=== PATIENT | male | born 1935 | race Caucasian/White ===

== ENCOUNTER 2016-11-04 09:50 | Outpatient (CLI) | payer BC, MEDICARE, OTHER ==
[~2016-11-04 09:50] MED LIST: SODIUM CHLORIDE 0.9% 250 ML in EMPTY BAG 1 BAG IV PRN; SODIUM CHLORIDE 0.9% 500 ML in EMPTY BAG 1 BAG IV PRN
[2016-11-04 10:18] VITALS: RESP 16; TEMP 97.5
[2016-11-04 10:38] LABS: Basophils # (A) 0.1 k/uL (0-0.2); Basophils % (A) 1 %; CH 29.5; CHCM 34.2; Eosinophils # (A) 0.2 k/uL (0-0.7); Eosinophils % (A) 3 %; HCT 41.9 % (39.0-53.0); HDW 2.48; HGB 13.7 gm/dL (13.0-17.5); Luc # (Auto) 0.08; Luc % (Auto) 1; Lymphocytes % (A) 36 %; MCH 28.3 pg (25.0-35.0); MCHC 32.7 g/dL (31.0-37.0); MCV 86.7 fL (80.0-100.0); Mean Platelet Volume 7.6; Monocytes # (A) 0.5 k/uL (0-1.0); Monocytes % (A) 8 %; Neutrophils # (A) 2.8 k/uL (1.3-7.7); Neutrophils % (A) 50 %; RBC 4.83 m/uL (4.30-5.90); RDW 12.5 % (11.5-15.5); WBC 5.6 k/uL (3.8-10.6); WBC (Perox) 5.82
[2016-11-04 10:48] LABS: ALT 37 U/L (21-72); AST 23 U/L (17-59); Alkaline Phosphatase 65 U/L (38-126); Anion Gap 10 mmol/L; Bilirubin, Delta 0.3 mg/dL (0.0-0.2); Blood Urea Nitrogen 29 mg/dL (9-20); Calcium 9.4 mg/dL (8.4-10.2); Carbon Dioxide 25 mmol/L (22-30); Chloride 101 mmol/L (98-107); Glucose 107 mg/dL (74-99); Non-African American GFR(MDRD) >60 (>60 ml/min/1.73 sqM); Potassium 5.2 mmol/L (3.5-5.1); Sodium 136 mmol/L (137-145); Total Bilirubin 1.2 mg/dL (0.2-1.3); Total Protein 7.1 g/dL (6.3-8.2)
[2016-11-04 11:37] VITALS: BP 143/63; PULSE 47
[2016-11-04 12:54] LABS: Appearance,Urine Clear (Clear); Bilirubin,Urine Negative (Negative); Glucose,Urine (UA) Negative (Negative); Ketones,Urine Negative (Negative); Leukocyte Esterase,Urine Negative (Negative); Nitrite,Urine Negative (Negative); PH, Urine 5.5 (5.0-8.0); Protein,Urine Negative (Negative); Specific Gravity,Urine 1.012 (1.001-1.035); UA Billing (MACRO vs. MICRO) CHEM; Urobilinogen,Urine <2.0 mg/dL (<2.0)
[2016-11-04 13:23] LABS: Erythrocyte Sedimentation Rate 6 mm/hr (0-15)
[2016-11-04] MEDS ORDERED: diphenhydrAMINE 25 MG CAP PO ONE (23:00)
[2016-11-04] MEDS ORDERED: ACETAMINOPHEN TAB 325 MG TAB PO ONE (23:00)
[2016-11-04] MEDS ORDERED: diphenhydrAMINE 50 MG/ML 1 ML VIAL IVP ONE (23:00)
== END 2016-11-04 14:54 | disposition home or self-care (01) ==
LOC: PROCWHC3 09:50
PROVIDERS: ATTEND Internal Medicine Rheumatology
DX: M06.89 Other specified rheumatoid arthritis, multiple sites (principal)
CPT/HCPCS: 80053; 85652; 82248; 85025; 81003; 96361; 96413; 96415; 36415; J1745

== ENCOUNTER 2017-10-16 13:03 | Emergency (ER) | payer MEDICARE ==
[2017-10-16 13:18] VITALS: BP 132/63; PULSE 95; RESP 18; TEMP 97.7
[2017-10-16] MEDS ORDERED: DIPH,PERTUS(ACELL)TETVAC-LF 0.5 ML VIAL IM ONE (13:31)
--- NOTE | 2017-10-16 13:47 | ED ---
Wound/Laceration HPI - General Chief Complaint: Wound/Laceration Stated Complaint: Fall/Leg Lac Time Seen by Provider: 10/16/17 13:24 Source: patient, RN notes reviewed Mode of arrival: ambulatory Limitations: no limitations - History of Present Illness Initial Comments: This is an 82-year-old male who presents to the emergency department with chief complaint of right leg laceration. Patient states that at 11 AM this morning he drove his lawnmower out to the end of the driveway to take out his garbage. While walking to get back onto the lawnmower to return to the house patient slipped on a patch of ice and his leg went underneath the lawnmower. He states that he lacerated his right lower extremity on a metal bracket underneath the lawnmower. Patient was able to get the bleeding under control. He states he has normal range of motion. Son is at bedside and states that he examined the wound and knew that the patient needed stitches. Patient is unsure of the last time he received an up-to-date tetanus vaccination. Denies being on any blood thinners. Denies any other injuries. Denies fever, chills, chest pain, shortness of breath, abdominal pain, nausea or vomiting, constipation or diarrhea, dysuria or hematuria, numbness or tingling, headache or vision changes. - Related Data Home Medications Medication Instructions Recorded Confirmed Aspirin 81 mg PO DAILY 02/26/14 11/04/16 Folic Acid 1 mg PO DAILY 02/26/14 11/04/16 Lisinopril [Zestril] 5 mg PO DAILY 02/26/14 11/04/16 Simvastatin [Zocor] 20 mg PO HS 02/26/14 11/04/16 Tamsulosin [Flomax] 8 mg PO DAILY 02/26/14 11/04/16 inFLIXimab [Remicade] 400 mg IVPB DIRECTED 11/07/14 11/04/16 Doxazosin [Cardura] 4 mg PO BID 03/25/16 11/04/16 Allergies Allergy/AdvReac Type Severity Reaction Status Date / Time No Known Allergies Allergy Verified 10/16/17 13:18 Review of Systems ROS Statement: Those systems with pertinent positive or pertinent negative responses have been documented in the HPI. ROS Other: All systems not noted in ROS Statement are negative. Past Medical History Past Medical History: Cancer, Hearing Disorder / Deafness, Hyperlipidemia, Myocardial Infarction (NH), Rheumatoid Arthritis (RA), Sleep Apnea/CPAP/BIPAP Additional Past Medical History / Comment(s): BACK PAIN/IMPLANTS/SKIN CANCER Last Myocardial Infarction Date:: 1999 History of Any Multi-Drug Resistant Organisms: None Reported Past Surgical History: Heart Catheterization With Stent Additional Past Surgical History / Comment(s): R&L KNEE SURG/LT. EAR BIOPSY 2010 /REMOVAL LT. EAR CHOLESTEATOMA Past Anesthesia/Blood Transfusion Reactions: No Reported Reaction Date of Last Stent Placement:: 1999 Past Psychological History: No Psychological Hx Reported Smoking Status: Former smoker Past Alcohol Use History: None Reported Past Drug Use History: None Reported General Exam - General Exam Comments Initial Comments: General: Awake and alert, well-developed; in no apparent distress. Pleasant and cooperative. HEENT: Head atraumatic, normocephalic. Pupils are equal, round and reactive to light. Extraocular movements intact. Oropharynx moist without erythema or exudate. Neck: Supple. Normal ROM. Cardiovascular: Regular rate and rhythm. No murmurs, rubs or gallops. Chest symmetrical. Respiratory: Lungs clear to auscultation bilaterally. No wheezes, rales or rhonchi. Normal respiratory effort with no use of accessory muscles. Musculoskeletal: Normal ROM of right lower extremity. There is an approximately 2 cm linear laceration overlying distal payton of right lower extremity. Bleeding is controlled. Sensation is intact. Pedal pulses are 2+ equal and palpable bilaterally. Skin: [place], warm and dry without rashes. Laceration as documented above. Neurological: Alert and oriented x3. CN II-XII grossly intact. Speech is fluent and answers are appropriate. No focal neuro deficits. Psychiatric: Normal mood and affect. No overt signs of depression or anxiety noted. Limitations: no limitations Course Vital Signs 10/16/17 13:15 Temperature 97.7 F Pulse Rate 95 Respiratory 18 Rate Blood Pressure 132/63 O2 Sat by Pulse 96 Oximetry Procedures - Laceration Laceration #1 Consent Obtained: verbal consent Indication: laceration Site: lower extremity (right distal payton) Size (cm): 2 Description: linear Depth: simple, single layer Anesthetic Used: lidocaine 1% Anesthesia Technique: local infiltration Amount (mls): 2 Pre-repair: wound explored, irrigated extensively, deep structures intact Type of Sutures: nylon Size of Sutures: 4-0 Number of Sutures: 3 Technique: simple, interrupted Patient Tolerated Procedure: well, no complications Medical Decision Making - Medical Decision Making This is an 82-year-old male who presented to the emergency department for evaluation of right lower extremity laceration. Patient was made up-to-date with tetanus vaccination. X-ray revealed no evidence of suspicious radiopaque foreign body and there was no involvement of the bone. 3 sutures were placed and patient tolerated well without complication. A dressing was applied to the wound. Patient was recommended to have sutures removed in 10-14 days either here at the emergency department or with his primary care provider. Patient will be discharged home. He is in agreement with plan and voices understanding. All questions were answered. - Radiology Data Radiology results: report reviewed X-ray right tibia-fibula findings: There is no acute fracture-dislocation seen in the right tibia or fibula. The right knee and ankle joints appear within normal limits. Horizontal lucency consistent with laceration injuries seen anteriorly midline level on lateral view.No suspicious radiodense foreign body is present. Impression: There is no acute fracture or dislocation seen in the right tibia or fibula. Disposition Clinical Impression: Laceration Disposition: HOME SELF-CARE Condition: Good Instructions: Laceration (ED) Additional Instructions: Please have sutures removed in 10-14 days. Please follow up with primary care provider within 1-2 days. Return to emergency department if symptoms should worsen or any concerns arise. Referrals: Kareem Mae DO [Primary Care Provider] - 1-2 days Time of Disposition: 14:23
--- NOTE | 2017-10-16 13:47 | XR ---
EXAMINATION TYPE: XR tibia fibula RT DATE OF EXAM: 10/16/2017 CLINICAL HISTORY: Laceration injury with pain TECHNIQUE: Two views of the right leg are obtained. COMPARISON: None. FINDINGS: There is no acute fracture or dislocation seen in the right tibia or fibula. The right kn ee and ankle joints appear within normal limits. Horizontal lucency consistent with laceration injury is seen anteriorly midline level on lateral view. No suspicious radiodense foreign body is present. IMPRESSION: There is no acute fracture or dislocation seen in the right tibia or fibula.
== END 2017-10-16 14:30 | disposition home or self-care (01) ==
LOC: EC 13:03
DX: S81.811A Laceration without foreign body, right lower leg, initial encounter (principal); E78.5 Hyperlipidemia, unspecified; I25.2 Old myocardial infarction; M06.9 Rheumatoid arthritis, unspecified; G47.30 Sleep apnea, unspecified; Z99.89 Dependence on other enabling machines and devices; Z85.828 Personal history of other malignant neoplasm of skin; Z95.5 Presence of coronary angioplasty implant and graft; Z87.891 Personal history of nicotine dependence; Z79.82 Long term (current) use of aspirin; Z79.899 Other long term (current) drug therapy; Z23 Encounter for immunization; W28.XXXA Contact with powered lawn mower, initial encounter; Y92.89 Other specified places as the place of occurrence of the external cause; Y93.89 Activity, other specified
CPT/HCPCS: 12001; 90471; 90715; 99283

== ENCOUNTER → 2018-01-11 | Outpatient (CLI) | payer MEDICARE, OTHER ==
--- NOTE | 2018-01-11 11:09 | US ---
EXAMINATION TYPE: US scrotum with doppler. Grayscale and color Doppler Duplex imaging performed of t he scrotum. DATE OF EXAM: 01/11/2018 COMPARISON: NONE CLINICAL HISTORY: Testicular torsion. Left testicular pain and swelling x 4 days EXAM MEASUREMENTS: TESTICLES: Right Testicle: 4.7 x 3.3 x 2.8 cm Left Testicle: 4.4 x 3.7 x 3.4 cm EPIDIDYMIS HEAD: Right Epididymis: 0.7 x 1.4 x 1.2 cm Left Epididymis: 1.1 x 1.2 x 2.1 cm Doppler performed to assess for testicular vascularity; good bilateral color flow and waveforms are s een. There is no evidence of testicular torsion. Presence of hydroceles: yes: right 3.7cm, left 6.6cm with septations Presence of varicoceles: no Left epididymis: 0.9 x 1.0 x 0.8cm cyst IMPRESSION: 1. No evidence for torsion. 2. Right-sided hydrocele with septations. 3. Left epididymal cyst.
== END | disposition home or self-care (01) ==
LOC: RADUSWWP 10:16
PROVIDERS: ATTEND Family Medicine
DX: N43.3 Hydrocele, unspecified (principal); N50.3 Cyst of epididymis
CPT/HCPCS: 76870; 93975

== ENCOUNTER → 2022-06-29 | Outpatient (CLI) | payer MEDICARE ==
--- NOTE | 2022-07-05 13:00 | US ---
EXAMINATION TYPE: US arterial LE single level DATE OF EXAM: 06/29/2022 12:48 PM CLINICAL HISTORY: M79.662 PAIN LT LEG, M79.661 PAIN RT LEG,I73.9 PERIPHERAL. History of hypertension and hyperlipidemia. Cardiac Stent 1999 Bilateral claudication after 50 yards. Doppler Waveforms: Right: Monophasic Left: Monophasic Pulse Volume Recording: Pressure Gradients: Ankle-Brachial Indices: Right: 0.62 Left: 0.64 Toe Brachial Indices: Right: 0.38 Left: 0.32 IMPRESSION: Loss of phasicity with diminished LELE and TBI values. At least moderate peripheral arter ial disease is present bilaterally. Further workup and follow-up advised.
== END | disposition home or self-care (01) ==
LOC: RADUSWWP 12:01
PROVIDERS: ATTEND Family Medicine
DX: I73.9 Peripheral vascular disease, unspecified (principal); M79.661 Pain in right lower leg; I10 Essential (primary) hypertension
CPT/HCPCS: 93922; 93923

== ENCOUNTER 2022-08-23 10:15 | Day surgery (SDC) | payer MEDICARE ==
[2022-08-19 09:57] VITALS: BMI 28.1
[~2022-08-23 10:15] MED LIST changes: +ALPRAZolam 0.25 MG TAB PO PRN; +ASPIRIN 325 MG TAB PO PRN; +SODIUM CHLORIDE 0.9% 1,000 ML in EMPTY BAG 1 BAG IV ONE; -SODIUM CHLORIDE 0.9% 250 ML in EMPTY BAG 1 BAG IV PRN; -SODIUM CHLORIDE 0.9% 500 ML in EMPTY BAG 1 BAG IV PRN
[2022-08-23 10:44] VITALS: RESP 18; TEMP 98.4
[2022-08-23 10:56] LABS: Basophils # (A) 0.1 k/uL (0-0.2); Basophils % (A) 1 %; Eosinophils # (A) 0.3 k/uL (0-0.7); Eosinophils % (A) 3 %; HCT 41.2 % (39.0-53.0); Lymphocytes # (A) 3.3 k/uL (1.0-4.8); Lymphocytes % (A) 32 %; MCH 29.7 pg (25.0-35.0); MCHC 33.9 g/dL (31.0-37.0); MCV 87.5 fL (80.0-100.0); Mean Platelet Volume 7.7; Monocytes # (A) 0.8 k/uL (0-1.0); Monocytes % (A) 8 %; Neutrophils # (A) 5.6 k/uL (1.3-7.7); Neutrophils % (A) 54 %; Platelet Count 313 k/uL (150-450); RBC 4.71 m/uL (4.30-5.90); RDW 13.1 % (11.5-15.5); WBC 10.4 k/uL (3.8-10.6)
[2022-08-23 11:13] LABS: Calcium 9.4 mg/dL (8.4-10.2); Potassium 4.3 mmol/L (3.5-5.1)
[2022-08-23] MEDS ORDERED: fentaNYL (PF) 50 MCG/1 ML VIAL IV ONE (12:10)
[2022-08-23] MEDS ORDERED: HEPARIN SODIUM 1,000 UN/ML (10ML VL) ONE (12:10)
[2022-08-23] MEDS ORDERED: MIDAZOLAM 2 MG/2 ML VIAL IV ONE (12:10)
[2022-08-23] MEDS ORDERED: LIDOCAINE 1% INJ 10MG/ML (30 ML VIAL-PF) SQ ONE (12:12)
[2022-08-23] MEDS ORDERED: VERAPAMIL 2.5 MG/ML 2 ML AMP ONE ×2 (12:13→12:25)
[2022-08-23] MEDS ORDERED: VERAPAMIL SYRINGE (5 MG/10 ML) INTRAARTER ONE (12:14)
[2022-08-23] MEDS ORDERED: HEPARIN SODIUM 1,000 UN/ML (10ML VL) IV ONE (12:23)
[2022-08-23] MEDS ORDERED: IOPAMIDOL-250 100ML BTL INTRAARTER ONE ×2 (12:56→12:57)
[2022-08-23] MEDS ORDERED: SODIUM CHLORIDE 0.9% 500 ML 500 ML IV ONE (15:00)
[2022-08-23 17:23] VITALS: BP 160/69; PULSE 52
--- NOTE | 2022-08-24 08:53 | P.PCN ---
Date of Procedure: 08/23/22 Description of Procedure: PROCEDURES PERFORMED: Abdominal angiography with bilateral runoff INDICATION: [place] class 3 claudication left greater than right, abnormal ultrasound, new symptoms on the left over the last 6 weeks CONSENT:I have discussed the risks, benefits and alternative therapies for the above-mentioned procedure and for both sedation/analgesia as well as necessary blood product administration, if indicated, as they pertain to this patient. The patient has indicated understanding and acceptance of the risks and procedures discussed. PROCEDURE: After the risks, benefits and alternatives of the above mentioned procedure explained in detail with the patient, informed consent was obtained. Patient was taken to the catheterization lab and prepped and draped in usual fashion. 1% lidocaine was used to anesthetize the right radial area. A 6- Azerbaij[place] sheath was placed in the right radial artery using modified Seldinger technique. A 5-[place]zerbaijani pigtail catheter was inserted to the abdominal aorta and DSA imaging was obtained. Patient tolerated the diagnostic portion well. Ther e did appear to be sluggish flow in the left TP trunk and symptoms new over last 6 weeks and therefore recommended temporary anticoagulation. The patient tolerated the procedure well. TR band was placed and sheath removed. Patient was transported back to the post catheterization holding area in stable condition. Conscious Sedation: Patient was monitored under the direct supervision of vision of myself for conscious sedation using Versed and fentanyl for a total duration of 16 minutes HEMODYNAMICS: Ao: 138/63 Abdominal aorta: The abdominal aorta has mild calcifcation. Renal arteries are patent. There is no significant dissection or aneurysm. There is no significant stenosis. Right lower extremity: Right common iliac artery: There is no significant stenosis. Right external iliac artery: There is no significant stenosis. Right internal iliac artery: There is no significant stenosis. Right common femoral artery: There is 100% right common femoral artery stenosis. Right profunda: There is no significant stenosis. Right SFA: There is no significant stenosis. Right popliteal artery: There is no significant stenosis. Right tibioperoneal trunk: There is no significant stenosis. Right anterior tibial artery: There is no significant stenosis. Right porterior tibial artery: There is no significant stenosis. Right peroneal artery: There is no significant stenosis. Left lower extremity: Left common iliac artery: There is no stenosis. Left external iliac artery: There is no stenosis Left internal iliac artery: There is no significant stenosis. Left common femoral artery: There is 100% stenosis. Left profunda: There is no significant stenosis. Left SFA: There is no significant stenosis. Left popliteal artery: There is no significant stenosis. Left tibioperoneal trunk: There is no stenosis with what appears to be 2 vessel runoff. Flow appears sluggish which can be seen in more acute process, thrombus. FINAL IMPRESSION: 1. Peripheral arterial disease as described above including 100% right and left common femoral stenosis PLAN: 1. Aggressive risk factor modification per most recent ACC/AHA guidelines. 2. Evaluate for possible femoral endarterectomy however if high risk, may consider percutaneous atherectomy or medical therapy.
--- NOTE | 2022-08-24 10:19 | IR ---
EXAMINATION TYPE: IR angio abdominal w runoff DATE OF EXAM: 08/23/2022 CLINICAL HISTORY: Peripheral arterial disease. TECHNIQUE: Fluoroscopy. COMPARISON: None. FINDINGS: Fluoroscopic guidance was provided during abdominal angiogram with runoff procedure perfor med by Dr. Wu. A total of 8.2 metastases of fluoroscopic time was utilized during the procedur e and 236 spot images was acquired. Please refer to procedure note for further details. IMPRESSION: As Above.
== END 2022-08-23 17:34 | disposition home or self-care (01) ==
LOC: CATHCVL 10:15
PROVIDERS: ATTEND Internal Medicine
DX: I70.213 Atherosclerosis of native arteries of extremities with intermittent claudication, bilateral legs (principal); I10 Essential (primary) hypertension; I25.10 Atherosclerotic heart disease of native coronary artery without angina pectoris; E78.5 Hyperlipidemia, unspecified
CPT/HCPCS: 36200; 75625; 75716; 76937; 80048; 85025; C1769 ×2; C1894; C1887; J2250; J2001; J1644; Q9966; J3010

== ENCOUNTER → 2023-03-22 | Outpatient (CLI) | payer MEDICARE ==
--- NOTE | 2023-03-22 18:45 | XR ---
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 There is mild hyperinflation with mild interstitial prominence. Focal opacity at the periphery of the right upper lobe. Eventration medial right hemidiaphragm. IMPRESSION: COPD and borderline heart size. There is focal opacity at the periphery of the right upper lobe. Conv entional pneumonia, underlying neoplasm, and atypical mycobacterial infections are all in the differe ntial. Further clinical correlation recommended. Contrast-enhanced CT if further imaging assessment i s desired.
== END | disposition home or self-care (01) ==
LOC: RADXRYALE 13:34
PROVIDERS: ATTEND Physician Assistant Medical
DX: J44.9 Chronic obstructive pulmonary disease, unspecified (principal); R76.11 Nonspecific reaction to tuberculin skin test without active tuberculosis; R91.8 Other nonspecific abnormal finding of lung field
CPT/HCPCS: 71046

== ENCOUNTER → 2023-04-12 | Outpatient (CLI) | payer MEDICARE ==
[2023-04-12 09:02] LABS: African American GFR (CKD) 64 (>60 ml/min/1.73 sqM); Blood Urea Nitrogen 32 mg/dL (9-20); Non-African American GFR(CKD) 55 (>60 ml/min/1.73 sqM)
--- NOTE | 2023-04-12 12:21 | CT ---
EXAMINATION TYPE: CT chest w con DATE OF EXAM: 04/12/2023 COMPARISON: Radiographs 03/22/2023 HISTORY: 87-year-old male R91.1 Solitary pulmonary nodule. TECHNIQUE: scanning of the chest after the administration of 80ml mL of Isovue 300. Coronal/sagittal reconstructions performed. CT DLP: 377mGycm. Automatic exposure control utilized for a dose reduction. FINDINGS: Heart upper limits of normal in size without pericardial effusion. There is some subendocardial fat d eposition noted at the apex of the heart. Extensive three-vessel coronary artery calcifications. Ectatic ascending aorta 3.9 cm the apparent ectatic upper descending thoracic aorta 3.6 cm. Mild fusi form aneurysm mid descending thoracic aorta at 3.5 cm and distal descending thoracic aorta to 3.8 cm. Moderate prostatic calcifications distally extending into the upper abdominal aorta. The No thoracic lymphadenopathy by CT size criteria. Some calcified right paratracheal nodes, right hilar , and subcarinal nodes compatible with prior granulomatous disease. Large caliber to the main right and left pulmonary arteries up to 3.2 cm suggesting underlying pulmon sheri artery hypertension. Moderate mucosal thickening and scattered mild centrilobular emphysema. There is persistence of a masslike area of consolidation lateral right upper lobe measuring 5.3 x 2.6 cm. 7 mm lingular nodule. Possible 1.2 cm left basilar nodule. Hazy areas of generalized atelectasis susp ected. No pleural effusion. Visualized upper abdomen shows some mild scattered colonic diverticulosis. Bones: No osseous destructive process. IMPRESSION: 1. COPD with mild emphysema. Pulmonary arterial hypertension. 2. Focal 5.3 cm area of air space disease lateral right upper lobe. Given persistence from 03/22/2023, causes of chronic airspace disease including low-grade adenocarcinoma and lymphoma are included in t he differential. Consider pulmonary medicine referral for further evaluation. 3. A couple additional pulmonary nodules measuring up to 1.2 cm are nonspecific. Ongoing surveillance follow-up recommended. 4. 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
== END | disposition home or self-care (01) ==
LOC: RADCTMAIN 08:10
PROVIDERS: ATTEND Internal Medicine Rheumatology
DX: R91.1 Solitary pulmonary nodule (principal); J43.2 Centrilobular emphysema; I27.21 Secondary pulmonary arterial hypertension; R91.8 Other nonspecific abnormal finding of lung field; I25.10 Atherosclerotic heart disease of native coronary artery without angina pectoris
CPT/HCPCS: 82565; 84520; 71260; 36415; Q9967

== ENCOUNTER → 2023-05-20 | Outpatient (CLI) | payer MEDICARE ==
--- NOTE | 2023-05-22 23:09 | PE ---
EXAMINATION TYPE: PET CT fusion skull to thigh DATE OF EXAM: 05/20/2023 COMPARISON: CT chest 04/12/2023 Prior PET/CT: No prior at this location HISTORY: Solitary pulmonary nodule TECHNIQUE: Following the intravenous administration of 11.93 mCi of F-18 FDG, whole body images are performed from the skull base to the midthigh. Images are reviewed on the computer in the coronal, a xial, and sagittal planes. Reconstructed rotating images are created on independent workstation and reviewed on the computer. A localization and attenuation correction CT is performed in conjunction with the PET scan. DLP: 454.22 mGycm SCAN: Initial Blood glucose: 117 mg/dL Average Mediastinum SUV: 1.25 Average Liver SUV: 2.34 FINDINGS: NECK: No abnormal uptake THORAX: There is intense uptake within the right posterior lateral upper lobe mass with an SUV value of 4.42, example image 83. There is a focus of radiotracer accumulation within the superior hilum with an SUV value of 2.74 susp icious for metastatic disease. An additional slightly more inferior area of uptake is in the right hi lar region with an SUV value of 2.07. An additional metastatic lymph node may be present at this loca tion. There is some mild intermediate uptake within a left lower hilar region, image 101 with an SUV value of 1.01. ABDOMEN: No abnormal uptake PELVIS: No abnormal uptake OSSEOUS STRUCTURES: No abnormal uptake LOCALIZATION CT: Lymphadenopathy to correlate with the uptake in the hilar regions is not clearly lisset dent on the localization CT. COMPARISON: Findings appears similar to the recent CT exam IMPRESSION: 1. Increased uptake within the right upper lobe mass compatible with neoplasm. 2. Suggestion of 2 metastatic lymph nodes within the right suprahilar region. 3. Some mild intermediate signal within the left hilar region more likely is related to inflammatory change
== END | disposition home or self-care (01) ==
LOC: RADPETMAIN 09:02
PROVIDERS: ATTEND Internal Medicine Critical Care Medicine
DX: R91.8 Other nonspecific abnormal finding of lung field (principal)
CPT/HCPCS: 78815; A9552

== ENCOUNTER → 2023-06-08 | Day surgery (SDC) | payer MEDICARE ==
[~2023-06-08] MED LIST changes: -ALPRAZolam 0.25 MG TAB PO PRN; -ASPIRIN 325 MG TAB PO PRN; +GLYCOPYRROLATE 0.2 MG/ML 2 ML VIAL ONE; +LACTATED RINGERS 1,000 ML IV SCH; +MIDAZOLAM 2 MG/2 ML VIAL ONE; +NEOSTIGMINE 1 MG/ML 10 ML VIAL ONE; +PROPOFOL 10 MG/ML 20 ML VIAL IV ONE; +ROCURONIUM 10 MG/ML (5 ML VIAL) IV ONE; -SODIUM CHLORIDE 0.9% 1,000 ML in EMPTY BAG 1 BAG IV ONE; +SUCCINYLCHOLINE CHLORIDE 200 MG/10 ML VIAL IV ONE; +ePHEDrine 50 MG/ML 1 ML VIAL ONE; +fentaNYL (PF) 50 MCG/ML 2 ML AMP ONE
--- NOTE | 2023-06-08 13:30 | CT ---
EXAMINATION TYPE: CT chest wo con CT DLP: 375.6 mGycm, Automated exposure control for dose reduction was used. DATE OF EXAM: 06/08/2023 1:17 PM COMPARISON: CT chest 04/12/2023, PET/CT 05/20/2023. CLINICAL INDICATION:Male, 87 years old with history of lung mass; PHH, Pre Ion bronch navigation TECHNIQUE: Multiple axial images were obtained through the chest without IV contrast. Lack of IV or o ral contrast limits evaluation of solid and hollow organ viscera. . Coronal and sagittal reformats re viewed. Veran recall. FINDINGS: LUNGS/ PLEURA: No pleural effusion, pneumothorax, focal consolidation. Stable 7 mm lingular nodule. R edemonstration of a masslike consolidation within the lateral right upper lobe measuring 5.7 x 3.3 cm , (series 3, image 71). Relatively similar size from prior exam. No new definitive pulmonary nodules. Mild COPD changes. Possible stable 1.2 cm lingular nodule (series 3, image 213). AIRWAY: Patent and unremarkable.. HEART: Size within normal limits. No pericardial effusion. Similar subendocardial fat deposition note d at the apex of the heart. Likely from prior prior [place]. Extensive three-vessel coronary tear calcific ations. MEDIASTINUM: No gross evidence of adenopathy. VASCULATURE: Ectasia of the before meals sending thoracic aorta measuring up to 3.9 cm. Ectasia of t he upper descending thoracic aorta measuring up to 3.6 cm's. 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 Descending distal thoracic aorta measures up to 3. 8 cm. Atherosclerotic calcification of the aorta and its branches. MUSCULOSKELETAL: No acute osseous abnormalities SOFT TISSUES/LYMPH NODES: Unremarkable. LOWER NECK: No significant findings. UPPER ABDOMEN: No significant findings. IMPRESSION: 1. Redemonstration of masslike consolidation within the lateral right upper lobe measuring up to 5.6 cm. This could represent chronic airspace disease versus primary lung malignancy. 2. Couple stable pulmonary nodules. Continued follow-up is recommended. 3. Ectasia of the thoracic aorta redemonstrated.
[2023-06-08 13:41] VITALS: RESP 16
[2023-06-08] MEDS: LACTATED RINGERS 1,000 ML IV SCH ×2 (14:01→14:17)
--- NOTE | 2023-06-08 15:29 | P.PCN ---
Date of Procedure: 06/08/23 Operative Findings: Operative Findings: Preoperative Diagnosis: Right upper lobe mass Postoperative Diagnosis: Right upper lobe mass Procedure(s) Performed: Flexible bronchoscopy Robotic-assisted bronchoscopy and addition to radial ultrasound evaluation of the lung mass Robotic-assisted transbronchial needle aspirate, transbronchial biopsies, transbronchial brushing of the right upper lobe lobe mass in addition to a bronchioloalveolar lavage EBUS Anesthesia: HITESHA Surgeon: Amara Reyes Estimated Blood Loss (ml): 0 Pathology: other Condition: stable Disposition: same day Operative Findings: A physical exam was performed. Informed consent was obtained from the patient after explaining all the risks (pneumothorax, life threatening bleeding, infection and adverse effects due to medications), benefits and alternatives to the procedure which the patient appeared to understand and so stated. The patient was connected to the monitoring devices. General anesthesia was induced and the patient was intubated by anesthesia. A final timeout was performed and the procedure confirmed by the attending staff bronchoscopist. The bronchoscope was inserted and the airway examined. The flexible bronchoscope was removed and the robotic bronchoscope was inserted. Registration was completed. I next guided the robotic bronchoscope using the navigation system into the right upper lobe mass. Once in proper position, the bronchoscope was frozen. The radial EBUS probe was placed through the bronchoscope and confirmed abnormal u/s images vs normal lung. A needle was placed through the working channel and under fluoroscopic guidance, we sampled the area thought to have the mass twice. We then used a cloud biopsy pattern with ultrasound confirmation for 2 additional passes with the needle. U/S evaluation was then used to reconfirm location. Forceps were next introduced through working channel and extended the appropriate distance and 3 transbronchial biopsies were performed using fluoroscopic guidance. The u/s probe was then reinserted to confirm location. When confirmed this process was repeated for a total of 6 transbronchial biopsies. After reassessment with EBUS, a brush was placed through the extendable working channel for 1 pass with fluoroscopic guidance. U/S evaluation was then used to confirm location. 40ml of saline was then instilled into the area of the lesion. The robotic bronchoscope was removed and the airway inspected with a flexible bronchoscope and 10 ml of effluent from the BAL was collected. The aspirate was bloody and ultimately declotted and based on that, the sample was discarded. Fluoroscopic check for pneumothorax was negative upon completion of the procedure. There was 0 ml blood loss with the procedure. Following that, the endobronchial ultrasound was inserted for mediastinal lymph node evaluation. No significant enlargement of the mediastinal lymph nodes and the identified lymph nodes are all less than 5 mm in size. No biopsies were taken. X-ray bronchoscope was inserted and regular suctioning was done. At the completion of the procedure, no residual secretions or bloody material within the airway. The bronchoscope was removed. The patient was extubated. FINDINGS: 1.The airways appeared normal 2 Successful navigation, ultrasonographic identification, and biopsies of right upper lobe mass 3.The the radial ultrasound view was (Concentric/Eccentric)}. 4 subcarinal lymph node, station [address] RECOMMENDATIONS: Await pathology and cytology results The referring physician will be alerted to the results when available. The patient was advised to follow up with the referring physician with the biopsy results Patient will be called with results.
[2023-06-08 15:42] VITALS: TEMP 97
--- NOTE | 2023-06-08 15:43 | FL ---
Intraoperative/procedural fluoroscopic services were provided for fluoroscopic bronchoscopy. Total fl uoroscopy time is 3.26 minutes with a total of 5 submitted images to PACS. Total DAP 10.726 Gycm2. P lease see the operative note for further details.
--- NOTE | 2023-06-08 16:11 | XR ---
EXAMINATION TYPE: XR chest 1V DATE OF EXAM: 06/08/2023 3:59 PM COMPARISON: Chest radiographs from 03/22/2023 TECHNIQUE: XR chest 1V Frontal view of the chest. CLINICAL INDICATION:Male, 87 years old with history of post bx; FINDINGS: Lungs/Pleura: The left lung is clear. Right upper lung airspace opacity. Appears more dense There is no evidence of pleural effusion, focal consolidation, or pneumothorax. Pulmonary vascularity: Unremarkable. Heart/mediastinum: Cardiomediastinal silhouette is unremarkable. Musculoskeletal: No acute osseous pathology. IMPRESSION: Right upper lung airspace opacity which may be slightly more dense compared to prior. No pneumothorax .
[2023-06-08 16:46] VITALS: BP 157/80; PULSE 62
== END ==
LOC: ORWHC2ENDO 12:49
PROVIDERS: ATTEND Internal Medicine Critical Care Medicine
DX: C34.11 Malignant neoplasm of upper lobe, right bronchus or lung (principal); E78.00 Pure hypercholesterolemia, unspecified; M06.9 Rheumatoid arthritis, unspecified; I25.10 Atherosclerotic heart disease of native coronary artery without angina pectoris; I73.9 Peripheral vascular disease, unspecified; R76.11 Nonspecific reaction to tuberculin skin test without active tuberculosis; C44.91 Basal cell carcinoma of skin, unspecified; Z88.8 Allergy status to other drugs, medicaments and biological substances; Z79.82 Long term (current) use of aspirin; Z79.02 Long term (current) use of antithrombotics/antiplatelets; Z79.899 Other long term (current) drug therapy; I10 Essential (primary) hypertension; Z83.1 Family history of other infectious and parasitic diseases; Z80.6 Family history of leukemia; Z87.891 Personal history of nicotine dependence; Z98.890 Other specified postprocedural states
CPT/HCPCS: 87798 ×3; 87496; 87498; 87529; 88305; 88173; 88342; 87502; 87634; 88341; 87070; 87205; 87116; 87102; 87206; 71045; 71250; 31625; 31633; 31623; 31624; 31652; J2250; J0330; J2710; J3010; J2704; S2900

== ENCOUNTER 2023-07-24 05:48 | Inpatient (IN) | payer MEDICARE ==
[~2023-07-24 05:48] MED LIST changes: +DEXAMETHASONE SOD PHOSPHATE 4 MG/ML 1 ML VIAL IV ONE; -GLYCOPYRROLATE 0.2 MG/ML 2 ML VIAL ONE; -MIDAZOLAM 2 MG/2 ML VIAL ONE; -NEOSTIGMINE 1 MG/ML 10 ML VIAL ONE; +ONDANSETRON 4 MG/2 ML VIAL IVP ONE; -PROPOFOL 10 MG/ML 20 ML VIAL IV ONE; -ROCURONIUM 10 MG/ML (5 ML VIAL) IV ONE; -SUCCINYLCHOLINE CHLORIDE 200 MG/10 ML VIAL IV ONE; -ePHEDrine 50 MG/ML 1 ML VIAL ONE; -fentaNYL (PF) 50 MCG/ML 2 ML AMP ONE
[2023-07-24 06:50] LABS: Glucose,Whole Blood 124 mg/dL (70-110)
[2023-07-24] MEDS ORDERED: HYDROmorphone 0.5 MG/0.5 ML SYRINGE IVP PRN (07:00)
[2023-07-24] MEDS ORDERED: MIDAZOLAM 2 MG/2 ML VIAL IV PRN (07:00)
[2023-07-24] MEDS ORDERED: MIDAZOLAM 2 MG/2 ML VIAL IVP ONE (07:06)
[2023-07-24] MEDS ORDERED: fentaNYL (PF) 50 MCG/ML 2 ML AMP IVP ONE (07:07)
[2023-07-24] MEDS ORDERED: PROPOFOL 10 MG/ML 20 ML VIAL IV ONE (07:31)
[2023-07-24] MEDS ORDERED: NEOSTIGMINE 1 MG/ML 10 ML VIAL ONE (07:31)
[2023-07-24] MEDS ORDERED: HYDROmorphone (PF) 1 MG/ML ONE (07:31)
[2023-07-24] MEDS ORDERED: ROPIVACAINE 5 MG/ML 30 ML VIAL ONE (07:31)
[2023-07-24] MEDS ORDERED: SUCCINYLCHOLINE CHLORIDE 200 MG/10 ML VIAL IV ONE (07:31)
[2023-07-24] MEDS ORDERED: fentaNYL (PF) 50 MCG/ML 2 ML AMP ONE (07:31)
[2023-07-24] MEDS ORDERED: METOPROLOL TARTRATE 5 MG/5 ML VIAL IVP ONE (07:31)
[2023-07-24] MEDS ORDERED: GLYCOPYRROLATE 0.2 MG/ML 2 ML VIAL ONE (07:31)
[2023-07-24] MEDS ORDERED: ROCURONIUM 10 MG/ML (5 ML VIAL) IV ONE (07:31)
[2023-07-24] MEDS ORDERED: PHENYLEPHRINE-0.9% NACL SYG 1,000 MCG/10 ML SYRINGE ONE (07:31)
[2023-07-24] MEDS ORDERED: LIDOCAINE 1% INJ 10MG/ML (20 ML MDV) ONE (07:31)
[2023-07-24] MEDS ORDERED: ePHEDrine 50 MG/ML 1 ML VIAL ONE (07:31)
[2023-07-24] MEDS ORDERED: BUPIVACAINE (PF) 0.5% 30 ML VIAL SQ ONE ×2 (08:18)
[2023-07-24] MEDS ORDERED: LACTATED RINGERS 1,000 ML IV ONE (10:52)
--- NOTE | 2023-07-24 11:22 | P.ANPRN ---
Procedure Note - Anesthesia - Nerve Block Performed Right Erector Spinae Single Time Out Performed: Yes (0705) Date of Procedure: 07/24/23 Procedure Start Time: 07:06 Procedure Stop Time: 07:12 Location of Patient: PreOp Indication: Acute Post-Operative Pain, Requested by Surgeon Specifically requested for management of pain by DrJeremie: Ricky Baer Sedation Type: Sedate with meaningful contact maintained Preparation: Sterile Prep Position: Supine Catheter: None Needle Types: Pajunk Needle Gauge: 21 Ultrasound used to visualize needle placement: Yes Ultrasound used to observe medication spread: Yes Injectate: 0.5% Ropivacaine (see comment for volume) (30cc) Blood Aspirated: No Pain Paresthesia on Injection Noted: No Resistance on Injection: Normal Image Stored and Saved: Yes Events: Uneventful and Well Tolerated
[2023-07-24] MEDS ORDERED: bisacodyL 10 MG SUPP RECTAL PRN (12:42)
[2023-07-24] MEDS ORDERED: DEXTROSE 5%-0.45% NACL 1,000 ML IV SCH (12:42)
[2023-07-24] MEDS ORDERED: diphenhydrAMINE 25 MG CAP PO PRN (12:42)
--- NOTE | 2023-07-24 12:51 | P.OP ---
Date of Procedure: 07/24/23 Preoperative Diagnosis: Lung Cancer Postoperative Diagnosis: Same Procedure(s) Performed: 1. Bronchoscopy 2. Right robotic assisted thorascopic surgery with right upper lobectomy 3. Mediastinal lymph node dissection 4. 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 This revealed a lung nodule. Further work-up including PET/CT and biopsy of the 5.5cm nodule revealed adenocarcinoma without evidence of metastatic disease. He is very functional with good PFTS. Lobectomy was recommended. Operative Findings: Significant adhesions of the right upper lobe to chest wall, no evidence of chest wall invasion by tumor. Some mediastinal fat taken en block with lobe just to be sure. Description of Procedure: The patient underwent left radial arterial line placement and errecter spinae block by the anesthesia team in pre-op. He was brought back to the operating room and placed on the table in the supine position. He was intubated with a 39F left sided RULA which was confirmed with bronchoscopy. A diagnostic bronchoscopy was also performed which revealed no lesions or abnormalities in the entire tracheo-bronchial tree. There was minimal to no secretions. The patient was then positioned in the left lateral decubitus position and his right chest was prepped and draped in the usual sterile fashion. The double lumen tube position was once again checked using bronchoscopy. A time-out was performed and antibiotics were given. The right lung was isolated. We made a 1cm incision in the 8th intercostal space mid axillary line. The 8mm trocar was inserted into the chest bluntly. The robotic camera was inserted and there was no injury to the lung and there was good lung isolation. We placed then placed 12mm trocars 10cm anteriorly and 10cm posteriorly in the 8th intercostal space. A 4th 8mm port was placed posteriorly in the 7th ICS posteriorly. We placed a 15mm assistant customer service manager port in between ports 1 and 2 10th ICS above the diaphragm. Intercostal nerve block was performed at 3 levels. The Da Vaishali Xi robot was then docked. Attention was then turned towards the inferior pulmonary ligament which was taken down using the bipolar cautery. This dissection was carried upward with the bipolar cautery posteriorly along the mediastinal pleura. Level 9,8 and 7 lymph nodes were harvested here. The right mainstem bronchus was identified and followed up into the lung. The lorena in between the RUL bronchus and bronchus intermedius was dissected using the bipolar cautery and bluntly. At this point, R 10 and R4 node was taken above the azygous vein. There was significant adhesions of the upper lobe to the chest wall. These were taken down using bipolar cautery. There was no evidence of tumor invasion into chest wall. I then proceeded to divide the anterior mediastinal pleura and carried this dissection upward. There was no invasion of the SVC. At this point the superior pulmonary vein was identified and encircled with a vessel loop taking care to preserve the vein to the middle lobe. A robotic white load was fired across the vein. Next, the truncus arteriosus was circumferentially dissected and encircled with a vessel loop. Once again, the robotic white load was fired across this vessel. There was no posterior ascending artery. Attention was then turned posterior towards the upper lobe bronchus. This was bluntly encircled with a vessel loop and a robotic green load was fired across the upper lobe bronchus. Lastly the anterior and posterior fissures were divided using multiple firings of the robotic green and black load stapler. The lung was placed in a retrieval bag, and the right chest was irrigated with water and a leak test on the bronchus was performed which was negative. The robot was undocked, the specimen was removed from the chest cavity and a 28F chest tube was placed via the most anterior incision and two lung ventilation was resumed. The patient was extubated and transferred to recovery with minimal air leak.
--- NOTE | 2023-07-24 13:13 | XR ---
EXAMINATION TYPE: XR chest 1V portable DATE OF EXAM: 07/24/2023 1:01 PM COMPARISON: Chest radiographs from 06/08/2023 TECHNIQUE: XR chest 1V portable Portable AP radiograph of the chest. CLINICAL INDICATION:Male, 87 years old with history of post lobectomy; FINDINGS: Lungs/Pleura: Post surgical changes from right upper lobectomy with trace right pleural effusion and right chest tube in place extending towards the apex. No focal consolidation or pleural effusion. Pulmonary vascularity: Unremarkable. Heart/mediastinum: Cardiomediastinal silhouette is prominent in size. Atherosclerotic calcifications are seen in the aorta. Musculoskeletal: No acute osseous pathology. Other: Subcutaneous emphysema along the right lateral chest wall extending into the neck. IMPRESSION: Postsurgical changes from right upper lobectomy. Associated trace right pneumothorax with chest tube in place. Right lateral chest wall subcutaneous emphysema with extension to the neck.
[2023-07-24 14:32] LABS: Glucose,Whole Blood 195 mg/dL (70-110)
[2023-07-24] MEDS: ONDANSETRON 4 MG/2 ML VIAL IVP PRN (14:54)
[2023-07-24] MEDS: traMADol 50 MG TAB PO PRN ×2 (14:58→23:56)
--- NOTE | 2023-07-24 15:17 | P.CNPUL ---
History of Present Illness Consult date: 07/24/23 Reason for consult: lung mass History of present illness: A very pleasant 87-year-old male patient has difficulties in hearing The patient was referred to me for an abnormal CAT scan of the chest that showed a focal 5.3 cm area of airspace disease in the right upper lobe and this was initially identified on a chest x-ray that was done on 03/22/2023 and this abnormality was not present back on a previous chest x-ray from 2016. As such, this is a new abnormality. The findings have remained persistent between 03/22/2023 chest x-ray and the CAT scan of the chest that was done on 04/12/2023. The possibilities that were entertained include chronic pneumonias, low-grade adenocarcinoma, lymphoma, etc. There is not a 7 mm lingular nodule and questionable 1.2 cm left basilar nodule. The patient also has some background emphysema, extensive triple-vessel coronary artery calcification, mediastinal lymph node calcification which is highly suggestive of previous TB exposure. 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 In fact, his mother because of complications of TB when he was 7 years old. The patient has checked positive for PPD and he has not received chemoprophylaxis with INH. He has rheumatoid arthritis. Is not taking any form of immunosuppression this point in time. He has worked in coal mines for many years. He has also smoked and he quit smoking 15-20 years ago. The PET/CT was completed on 05/20/2023 and the patient has a right upper lobe mass which is compatible with neoplasm. The mass itself is showing increased uptake with an SUV of 4.42. The same time, there was a superior hilar lymph node measuring SUV of 2.7 and additional lymph node and infrahilar area. Overall, there are 2 lymph nodes seen in the right hilum. I did a lengthy discussion with the son was also present. The patient is insistent biopsy for tissue diagnosis. Despite his age, his overall functionality is adequate. He is interested in establishing a diagnosis. Based on that, I recommended a robotic ion bronchoscopy. No hemoptysis. No other new complaints otherwise for now. He underwent a bronchoscopy without any major issues. He encountered some sore throat. The bronchoscopy was done and the right upper lobe mass was biopsied and the results are consistent with adenocarcinoma. As such, the patient is diagnosed having lung cancer. We discussed the findings. We will going to get a second opinion from oncology regarding treatment options. The patient is not interested in surgery. He is not interested in systemic chemotherapy at this point in time. Surgery on 07/24/2020 3 AM this morning I'm seeing this patient in the intensive care unit for a follow-up. The patient is doing well. He underwent a robotic-assisted thoracoscopic right upper lobectomy along with mediastinal lymph node dissection. He also received intercostal nerve block at 3 different levels. Currently, he is in the intensive care unit, hemodynamically stable on 3 L of oxygen by nasal cannula. The postop chest x- ray was done and reviewed and show some subcutaneous emphysema along the right chest wall and the neck area. I do not appreciate any pneumothorax. The patient has a right-sided chest tube in place. Output from the chest tube is in order of 200 mL of bloody output and there is some mild air leak. The patient remains on oxygen and is currently on 3 L nasal cannula. No other complaints otherwise for now. The patient is complaining of pain at the surgical 1 sets and currently tramadol when necessary for pain control. He is awake and alert and communicating. Review of Systems Constitutional: Reports as per HPI Eyes: denies as per HPI, denies blurred vision, denies bulging eye, denies decreased vision, denies diplopia, denies discharge, denies dry eye, denies irritation, denies itching, denies pain, denies photophobia, denies loss of peripheral vision, denies loss of vision, denies tunnel vision/blind spots Ears: bilateral: decreased hearing, deny: ear discharge, earache, tinnitus Ears, nose, mouth and throat: Reports as per HPI Breasts: absent: as per HPI, gynecomastia Cardiovascular: Reports as per HPI, Reports chest pain Respiratory: Reports as per HPI, Reports cough Gastrointestinal: Reports as per HPI Genitourinary: Reports as per HPI Musculoskeletal: Reports as per HPI Musculoskeletal: absent: ankle pain, ankle stiffness, ankle swelling Integumentary: Reports as per HPI Neurological: Reports as per HPI Psychiatric: Reports as per HPI Endocrine: Reports as per HPI Hematologic/Lymphatic: Reports as per HPI Allergic/Immunologic: Reports as per HPI Past Medical History Past Medical History: Coronary Artery Disease (CAD), Cancer, Hearing Disorder / Deafness, Hyperlipidemia, Hypertension, Myocardial Infarction (AL), Prostate Disorder, Rheumatoid Arthritis (RA), Vascular Disorder Additional Past Medical History / Comment(s): Current right lung cancer. Hx skin cancer. PAD. BPH. Deaf left ear, hard of hearing in right ear. Pain with walking. positive PPD Last Myocardial Infarction Date:: 1999 History of Any Multi-Drug Resistant Organisms: None Reported Past Surgical History: Heart Catheterization With Stent, Orthopedic Surgery, Prostate Surgery Additional Past Surgical History / Comment(s): BILATERAL KNEE SURGERY, LEFT EAR BIOPSY 2010/REMOVAL LEFT EAR CHOLESTEATOMA, TURP, right leg surgery to improve circulation, bronchoscopy. Past Anesthesia/Blood Transfusion Reactions: No Reported Reaction Date of Last Stent Placement:: 1999 Past Psychological History: No Psychological Hx Reported Smoking Status: Former smoker Past Alcohol Use History: Occasional Additional Past Alcohol Use History / Comment(s): Quit smoking >30 years ago, smoked 1ppd. Past Drug Use History: None Reported - Past Family History Sister(s) Family Medical History: Cancer Additional Family Medical History / Comment(s): 3 sisters had cancer. Medications and Allergies Home Medications Medication Instructions Recorded Confirmed Type Aspirin 81 mg PO BID 02/26/14 07/24/23 History Cholecalciferol [Vitamin D3 (25 50 mcg PO DAILY 08/19/22 07/24/23 History Mcg = 1000 Iu)] Cyanocobalamin [Vitamin B-12] 500 mcg PO DAILY 08/19/22 07/24/23 History Force Factor Prostate Suppl 1 dose PO DAILY 08/19/22 07/24/23 History Losartan [Cozaar] 100 mg PO QAM 08/19/22 07/24/23 History Multivit-Min/Folic/Vit K/Lycop 1 each PO DAILY 08/19/22 07/24/23 History [Men's Multivitamin Tablet] [place]-3/Dha/Epa/Fish Oil [Fish Oil 1 each PO DAILY 08/19/22 07/24/23 History 1,000 mg Softgel] amLODIPine [Norvasc] 5 mg PO HS 08/19/22 07/24/23 History hydroCHLOROthiazide 25 mg PO DAILY 08/19/22 07/24/23 History Atorvastatin [Lipitor] 10 mg PO HS 06/05/23 07/24/23 History diphenhydrAMINE [Benadryl] 25 mg PO HS PRN 07/24/23 07/24/23 History Allergies Allergy/AdvReac Type Severity Reaction Status Date / Time No Known Allergies Allergy Verified 07/24/23 06:22 Physical Exam Vitals: Vital Signs Temp Pulse Pulse Pulse Resp BP BP 07/24/23 15:00 55 L 17 101/61 07/24/23 14:30 97.7 F 60 23 101/61 07/24/23 13:45 67 20 119/59 07/24/23 13:30 65 20 115/58 07/24/23 13:15 70 20 117/61 07/24/23 13:00 57 L 20 125/58 07/24/23 12:45 71 20 139/63 07/24/23 12:32 61 22 115/54 07/24/23 07:19 69 14 138/67 07/24/23 06:21 98.2 F 73 76 16 162/74 BP Pulse Ox 07/24/23 15:00 95 07/24/23 14:30 92 L 07/24/23 13:45 95 07/24/23 13:30 95 07/24/23 13:15 95 07/24/23 13:00 96 07/24/23 12:45 97 07/24/23 12:32 98 07/24/23 07:19 98 07/24/23 06:21 185/78 99 Intake and Output 07/24/23 07/24/23 07/24/23 06:59 14:59 22:59 Intake Total 200 1950 Output Total 250 Balance 200 1700 Intake: IV 200 1950 Output: Urine 200 Estimated Blood Loss 50 Other: Weight 77.9 kg ABP, PAP, CO, CI - Last 8 Hours Arterial Blood Pressure 113/42 Arterial Blood Pressure 104/42 On the left. This, the patient is calm and comfortable, currently on 3 L O2 nasal cannula, communicating, he is hard of hearing Head exam was generally normal. There was no scleral icterus or corneal arcus. Mucous membranes were moist. Neck was supple and without jugular venous distension, thyromegaly, or carotid bruits. Carotids were easily palpable bilaterally. There was no adenopathy. Lungs sounds are diminished and the patient has scattered rhonchi heard bilaterally. The patient also has a right-sided chest tube in place. There is intermittent air leak and the total amount of output is in the order of 100 mL since arrival from the operating room. Cardiac exam revealed the PMI to be normally situated and sized. The rhythm was regular and no extrasystoles were noted during several minutes of auscultation. The first and second heart sounds were normal and physiologic splitting of the second heart sound was noted. There were no murmurs, rubs, clicks, or gallops., The patient has some occasional PACs Abdominal exam revealed normal bowel sounds. The abdomen was soft, non-tender, and without masses, organomegaly, or appreciable enlargement of the abdominal aorta. Examination of the extremities revealed easily palpable radial, femoral and pedal pulses. There was no cyanosis, clubbing or edema. Examination of the skin revealed no evidence of significant rashes, suspicious appearing nevi or other concerning lesions. Neurologically, the patient is awake and alert and the patient does not have any focal neurological deficit. Cranial nerves are essentially intact. Results - Laboratory Findings Abnormal lab findings: Abnormal Labs 07/17/23 07/24/23 07/24/23 11:37 06:48 14:31 POC Glucose (mg/dL) 124 H 195 H Crossmatch See Detail - Diagnostic Findings Chest x-ray: image reviewed Assessment and Plan Plan: Underwent a biopsy and the diagnosis was confirmed. Based on that, the patient underwent a robotic-assisted right upper lobe resection patient is currently postop day #0. The patient's had a 5.3 cm masslike opacity in the right upper lobe mass in the preop PET/CT showed increase uptake in the right suprahilar lymph node with an SUV of 2.7 and additional lymph node and infrahilar area. Positive PPD and the patient has not received chemo prophylaxis with INH Coronary artery disease Peripheral vascular disease Hyperlipidemia Rheumatoid arthritis COPD Impaired hearing History of basal cell carcinoma of the skin Plan Pain control with tramadol. The patient may also received Dilaudid 0.5 mg every 4-6 hours on a when necessary basis Incentive spirometer Data chest x-ray Monitor the output from the chest tube Monitor air leak Hemodynamically stable Resume all medications IV cefazolin for antibiotic prophylaxis Heparin subcu for DVT prophylaxis We'll continue to follow make further recommendations based on his progress
[2023-07-24] MEDS: HYDROmorphone 0.5 MG/0.5 ML SYRINGE IVP PRN ×2 (15:27→20:55)
[2023-07-24] MEDS: HEPARIN SODIUM,PORCINE 5,000 UNIT/ML 1 ML VIAL SQ SCH ×2 (15:53→23:56)
[2023-07-24 16:12] LABS: HCT 36.9 % (39.0-53.0); HGB 12.2 gm/dL (13.0-17.5); MCH 28.7 pg (25.0-35.0); MCHC 33.1 g/dL (31.0-37.0); MCV 86.7 fL (80.0-100.0); Mean Platelet Volume 7.7; Platelet Count 280 k/uL (150-450); RBC 4.26 m/uL (4.30-5.90); RDW 12.9 % (11.5-15.5); WBC 14.5 k/uL (3.8-10.6)
[2023-07-24 16:18] LABS: ALT 60 U/L (4-49); AST 382 U/L (17-59); African American GFR (CKD) 61 (>60 ml/min/1.73 sqM); Albumin 3.5 g/dL (3.5-5.0); Alkaline Phosphatase 62 U/L (38-126); Anion Gap 11 mmol/L; Blood Urea Nitrogen 34 mg/dL (9-20); Calcium 8.3 mg/dL (8.4-10.2); Carbon Dioxide 20 mmol/L (22-30); Chloride 98 mmol/L (98-107); Glucose 193 mg/dL (74-99); Magnesium 1.7 mg/dL (1.6-2.3); Non-African American GFR(CKD) 53 (>60 ml/min/1.73 sqM); Phosphorus 5.6 mg/dL (2.5-4.5); Potassium 5.1 mmol/L (3.5-5.1); Sodium 129 mmol/L (137-145); Total Protein 6.4 g/dL (6.3-8.2)
[2023-07-24] MEDS: IPRATROPIUM-ALBUTEROL 3 ML NEB IH SCH ×2 (16:48→20:35)
[2023-07-24] MEDS: MAGNESIUM SULFATE-D5W PMX 1 GM in DEXTROSE/WATER 1 100ML.BAG IVPB SCH ×2 (17:30→18:40)
[2023-07-24] MEDS: ACETAMINOPHEN TAB 325 MG TAB PO PRN (17:34)
[2023-07-24] MEDS: FORMOTEROL FUMARATE 20 MCG/2 ML NEBU INHALATION SCH (20:35)
[2023-07-24] MEDS: ATORVASTATIN 10 MG TAB PO SCH (20:55)
[2023-07-24] MEDS: ASPIRIN 81 MG PO SCH (20:55)
[2023-07-24] MEDS ORDERED: amLODIPine 5 MG TAB PO SCH (21:00)
[2023-07-24] MEDS: SENNOSIDES-DOCUSATE SODIUM 1 EACH TAB PO SCH (21:32)
[2023-07-24] MEDS ORDERED: SODIUM CHLORIDE 0.9% 500 ML 500 ML IV ONE (22:28)
[2023-07-25] MEDS: HYDROmorphone 0.5 MG/0.5 ML SYRINGE IVP PRN ×2 (02:07→06:06)
[2023-07-25] MEDS: IPRATROPIUM-ALBUTEROL 3 ML NEB IH PRN (04:11)
[2023-07-25 05:36] LABS: Basophils % (A) 0 %; Eosinophils % (A) 0 %; HCT 39.5 % (39.0-53.0); HGB 13.4 gm/dL (13.0-17.5); Lymphocytes # (A) 1.2 k/uL (1.0-4.8); Lymphocytes % (A) 9 %; MCH 29.3 pg (25.0-35.0); MCHC 33.8 g/dL (31.0-37.0); MCV 86.7 fL (80.0-100.0); Monocytes # (A) 0.9 k/uL (0-1.0); Monocytes % (A) 7 %; Neutrophils # (A) 10.4 k/uL (1.3-7.7); Neutrophils % (A) 82 %; Platelet Count 332 k/uL (150-450); RBC 4.55 m/uL (4.30-5.90); RDW 13.1 % (11.5-15.5); WBC 12.7 k/uL (3.8-10.6)
[2023-07-25] MEDS: PANTOPRAZOLE 40 MG TABLET PO SCH (06:06)
[2023-07-25 06:42] LABS: African American GFR (CKD) 45 (>60 ml/min/1.73 sqM); Anion Gap 13 mmol/L; Blood Urea Nitrogen 42 mg/dL (9-20); Calcium 8.2 mg/dL (8.4-10.2); Carbon Dioxide 17 mmol/L (22-30); Chloride 95 mmol/L (98-107); Glucose 147 mg/dL (74-99); Non-African American GFR(CKD) 39 (>60 ml/min/1.73 sqM); Potassium 5.2 mmol/L (3.5-5.1); Sodium 125 mmol/L (137-145)
--- NOTE | 2023-07-25 07:07 | P.CRDCN ---
History of Present Illness Consult date: 07/25/23 Chief complaint: Shortness of breath History of present illness: The patient is a pleasant 87-year-old gentleman who sees Dr. Barakat irregularly w ith a past medical history significant for coronary artery disease with previous stenting with unknown details, the stenting performed more than 20 years ago as well as hypertension and dyslipidemia and peripheral arterial disease. 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 Baer. We consulted to see the patient because of bradycardia noted when the patient was admitted to the intensive care unit. An EKG was performed and showed what it seems to be AV block. Unfortunately the EKG is unavailable at this point and we are in process of obtaining another one. The patient is bradycardic with heart rate in the 50s and 60s. Pressure has been stable but appeared to be marginally low. The patient is not experiencing any symptoms of dizziness or lightheadedness and no presyncope or syncope and no symptoms of any chest pain or chest discomfort but does have shortness of breath which appeared to be chronic. Currently he is not on any AV vic chastity agents. No TSH or free T4 performed and we are in process of getting one. Also echocardiogram was performed on BR] of getting an echo as well. Blood work revealed hyperkalemia with potassium of 5.2. His kidney function is abnormal as well and currently his renal failure. No history of bradycardia and he was not on any AV vic chastity agents at home. The examination is remarkable for regular rhythm with a systolic murmur at the right upper sternal border and diminished breathing sounds bilaterally. Assessment Status post robotic surgery as described above Asymptomatic bradycardia AV block, differential diagnosis is type I or type II second-degree AV block CAD as described above Hyperkalemia Failure Multiple comorbid conditions Plan Stop amlodipine in the light of marginally low blood pressure Avoid any AV vic chastity agents Obtain TSH and free T4 Obtain an echocardiogram was Doppler Obtain a 12 please EKG Follow-up with the patient Past Medical History Past Medical History: Coronary Artery Disease (CAD), Cancer, Hearing Disorder / Deafness, Hyperlipidemia, Hypertension, Myocardial Infarction (MS), Prostate Disorder, Rheumatoid Arthritis (RA), Vascular Disorder Additional Past Medical History / Comment(s): Current right lung cancer. Hx skin cancer. PAD. BPH. Deaf left ear, hard of hearing in right ear. Pain with w alking. positive PPD Last Myocardial Infarction Date:: 1999 History of Any Multi-Drug Resistant Organisms: None Reported Past Surgical History: Heart Catheterization With Stent, Orthopedic Surgery, Prostate Surgery Additional Past Surgical History / Comment(s): BILATERAL KNEE SURGERY, LEFT EAR BIOPSY 2010/REMOVAL LEFT EAR CHOLESTEATOMA, TURP, right leg surgery to improve circulation, bronchoscopy. Past Anesthesia/Blood Transfusion Reactions: No Reported Reaction Date of Last Stent Placement:: 1999 Past Psychological History: No Psychological Hx Reported Smoking Status: Former smoker Past Alcohol Use History: Occasional Additional Past Alcohol Use History / Comment(s): Quit smoking >30 years ago, smoked 1ppd. Past Drug Use History: None Reported - Past Family History Sister(s) Family Medical History: Cancer Additional Family Medical History / Comment(s): 3 sisters had cancer. Medications and Allergies Home Medications Medication Instructions Recorded Confirmed Type Aspirin 81 mg PO BID 02/26/14 07/24/23 History Cholecalciferol [Vitamin D3 (25 50 mcg PO DAILY 08/19/22 07/24/23 History Mcg = 1000 Iu)] Cyanocobalamin [Vitamin B-12] 500 mcg PO DAILY 08/19/22 07/24/23 History Force Factor Prostate Suppl 1 dose PO DAILY 08/19/22 07/24/23 History Losartan [Cozaar] 100 mg PO QAM 08/19/22 07/24/23 History Multivit-Min/Folic/Vit K/Lycop 1 each PO DAILY 08/19/22 07/24/23 History [Men's Multivitamin Tablet] Max-3/Dha/Epa/Fish Oil [Fish Oil 1 each PO DAILY 08/19/22 07/24/23 History 1,000 mg Softgel] amLODIPine [Norvasc] 5 mg PO HS 08/19/22 07/24/23 History hydroCHLOROthiazide 25 mg PO DAILY 08/19/22 07/24/23 History Atorvastatin [Lipitor] 10 mg PO HS 06/05/23 07/24/23 History diphenhydrAMINE [Benadryl] 25 mg PO HS PRN 07/24/23 07/24/23 History Allergies Allergy/AdvReac Type Severity Reaction Status Date / Time No Known Allergies Allergy Verified 07/24/23 06:22 Physical Exam Vitals: Vital Signs Temp Pulse Pulse Resp BP BP Pulse Ox 07/25/23 06:00 68 17 98/58 95 07/25/23 05:00 79 20 108/80 94 L 07/25/23 04:24 83 07/25/23 04:11 89 07/25/23 04:00 97.7 F 67 16 99/55 97 07/25/23 03:00 66 18 111/56 95 07/25/23 02:00 58 L 18 108/54 94 L 07/25/23 01:00 58 L 16 98/54 96 07/25/23 00:00 97.6 F 59 L 26 H 106/52 95 07/24/23 23:00 60 25 H 118/92 95 07/24/23 22:00 59 L 21 104/65 95 07/24/23 21:00 80 23 113/88 94 L 07/24/23 20:50 72 07/24/23 20:37 63 07/24/23 20:00 98.3 F 72 23 101/61 94 L 07/24/23 19:00 64 23 101/61 93 L 07/24/23 18:00 68 27 H 101/61 93 L 07/24/23 17:00 68 26 H 101/61 92 L 07/24/23 16:00 97.5 F L 61 67 29 H 101/61 94 L 07/24/23 15:00 55 L 17 101/61 95 07/24/23 14:30 97.7 F 60 23 101/61 92 L 07/24/23 13:45 67 20 119/59 95 07/24/23 13:30 65 20 115/58 95 07/24/23 13:15 70 20 117/61 95 07/24/23 13:00 57 L 20 125/58 96 07/24/23 12:45 71 20 139/63 97 07/24/23 12:32 61 22 115/54 98 07/24/23 07:19 69 14 138/67 98 Intake and Output 07/24/23 07/25/23 07/25/23 22:59 06:59 14:59 Intake Total 559 577 Output Total 294 162 Balance 265 415 Intake: IV 559 577 A line 9 27 Dextrose 5%-0.45% NaCl 1, 350 450 000 ml @ 50 mls/hr IV . Q20H [facility] Rx#:[id number] Magnesium Sulfate-D5w Pmx 100 1 gm In Dextrose/Water 1 100ml.bag @ 100 mls/hr IVPB Q1H [facility] Rx#: [id number] ceFAZolin 2 gm In Sodium 100 100 Chloride 0.9% 50 ml @ 100 mls/hr IVPB ONCE PRN Rx# :[id number] Output: Chest Tube Drainage 140 Chest Tube Right 140 Urine 154 162 Other: Voiding Method Indwelling Catheter Indwelling Catheter Weight 83 kg Results 07/25/23 05:00 07/25/23 05:00 Cardiac Enzymes 07/24/23 Range/Units 15:28 AST 382 H (17-59) U/L CBC 07/24/23 07/25/23 Range/Units 15:28 05:00 WBC 14.5 H 12.7 H (3.8-10.6) k/uL RBC 4.26 L 4.55 (4.30-5.90) m/uL Hgb 12.2 L 13.4 (13.0-17.5) gm/dL Hct 36.9 L 39.5 (39.0-53.0) % Plt Count 280 332 (150-450) k/uL Comprehensive Metabolic Panel 07/24/23 07/25/23 Range/Units 15:28 05:00 Sodium 129 L 125 L (137-145) mmol/L Potassium 5.1 5.2 H (3.5-5.1) mmol/L Chloride 98 95 L (98-107) mmol/L Carbon Dioxide 20 L 17 L (22-30) mmol/L BUN 34 H 42 H (9-20) mg/dL Creatinine 1.23 1.60 H (0.66-1.25) mg/dL Glucose 193 H 147 H (74-99) mg/dL Calcium 8.3 L 8.2 L (8.4-10.2) mg/dL AST 382 H (17-59) U/L ALT 60 H (4-49) U/L Alkaline Phosphatase 62 (38-126) U/L Total Protein 6.4 (6.3-8.2) g/dL Albumin 3.5 (3.5-5.0) g/dL Current Medications Generic Name Dose Route Start Last Admin Trade Name Freq PRN Reason Stop Dose Admin Acetaminophen 650 mg 07/24/23 12:42 07/24/23 17:34 Acetaminophen Tab 325 Mg Tab PO 650 mg Q4HR PRN Administration Mild to Moderate Pain (1 - 6) Albuterol/Ipratropium 3 ml 07/24/23 12:42 07/25/23 04:11 Ipratropium-Albuterol 3 Ml Neb IH 3 ml RT-Q1H PRN Administration Shortness Of Breath Or Wheezing Albuterol/Ipratropium 3 ml 07/24/23 16:00 07/24/23 20:35 Ipratropium-Albuterol 3 Ml Neb IH 3 ml RT-QID JULIANA Administration Amlodipine Besylate 5 mg 07/24/23 21:00 07/24/23 20:55 Amlodipine 5 Mg Tab PO 5 mg HS JULIANA Administration Aspirin 81 mg 07/24/23 21:00 07/24/23 20:55 Aspirin 81 Mg PO 81 mg BID JULIANA Administration Atorvastatin Calcium 10 mg 07/24/23 21:00 07/24/23 20:55 Atorvastatin 10 Mg Tab PO 10 mg HS JULIANA Administration Bisacodyl 10 mg 07/24/23 12:42 Bisacodyl 10 Mg Supp RECTAL DAILY PRN Constipation Cholecalciferol 50 mcg 07/25/23 09:00 Cholecalciferol 25 Mcg (1000 Iu) Tablet PO DAILY JULIANA Cyanocobalamin 500 mcg 07/25/23 09:00 Cyanocobalamin 500 Mcg Tab PO DAILY JULIANA Diphenhydramine HCl 25 mg 07/24/23 12:42 Diphenhydramine 25 Mg Cap PO HS PRN sinuses Formoterol Fumarate 20 mcg 07/24/23 20:00 07/24/23 20:35 Formoterol Fumarate 20 Mcg/2 Ml Nebu INHALATION 20 mcg RT-BID JULIANA Administration Heparin Sodium (Porcine) 5,000 unit 07/24/23 16:00 07/24/23 23:56 Heparin Sodium,Porcine 5,000 Unit/Ml 1 Ml Vial SQ 5,000 unit Q8HR JULIANA Administration Hydromorphone HCl 0.5 mg 07/24/23 15:11 07/25/23 06:06 Hydromorphone 0.5 Mg/0.5 Ml Syringe IVP 0.5 mg Q4HR PRN Administration Pain Dextrose/Sodium Chloride 1,000 mls @ 50 mls/hr 07/24/23 12:42 07/24/23 15:01 Dextrose 5%-1/2ns Iv Soln IV 50 mls/hr .Q20H JULIANA Administration Losartan Potassium 100 mg 07/25/23 09:00 Losartan 50 Mg Tab PO QAM [facility] Multivitamins 1 each 07/25/23 09:00 Multivitamins, Thera 1 Each Tab PO DAILY [facility] Ondansetron HCl 4 mg 07/24/23 12:42 07/24/23 14:54 Ondansetron 4 Mg/2 Ml Vial IVP 4 mg Q8HR PRN Administration Nausea And Vomiting Pantoprazole Sodium 40 mg 07/25/23 07:30 07/25/23 06:06 Pantoprazole 40 Mg Tablet PO 40 mg AC-BRKFST [facility] Administration Senna/Docusate Sodium 2 each 07/24/23 21:00 07/24/23 21:32 Sennosides-Docusate Sodium 1 Each Tab PO Not Given HS [facility] Tramadol HCl 50 mg 07/24/23 12:42 07/24/23 23:56 Tramadol 50 Mg Tab PO 50 mg QID PRN Administration Severe Pain (Scale 7 to 10) Intake and Output 07/24/23 07/25/23 07/25/23 22:59 06:59 14:59 Intake Total 559 577 Output Total 294 162 Balance 265 415 Intake: IV 559 577 A line 9 27 Dextrose 5%-0.45% NaCl 1, 350 450 000 ml @ 50 mls/hr IV . Q20H [facility] Rx#:[id number] Magnesium Sulfate-D5w Pmx 100 1 gm In Dextrose/Water 1 100ml.bag @ 100 mls/hr IVPB Q1H [facility] Rx#: [id number] ceFAZolin 2 gm In Sodium 100 100 Chloride 0.9% 50 ml @ 100 mls/hr IVPB ONCE PRN Rx# :[id number] Output: Chest Tube Drainage 140 Chest Tube Right 140 Urine 154 162 Other: Voiding Method Indwelling Catheter Indwelling Catheter Weight 83 kg 07/25/23 05:00 07/25/23 05:00
[2023-07-25] MEDS: IPRATROPIUM-ALBUTEROL 3 ML NEB IH SCH ×4 (08:16→19:54)
[2023-07-25] MEDS: FORMOTEROL FUMARATE 20 MCG/2 ML NEBU INHALATION SCH ×2 (08:16→19:53)
[2023-07-25] MEDS ORDERED: SODIUM ZIRCONIUM CYCLOSILICATE 10 GM PACKET PO ONE (08:30)
--- NOTE | 2023-07-25 08:43 | XR ---
EXAMINATION TYPE: XR chest 1V DATE OF EXAM: 07/25/2023 COMPARISON: 07/24/2023 HISTORY: 87-year-old male post lobectomy TECHNIQUE: Single frontal view of the chest is obtained. FINDINGS: Apically directed right-sided chest tube is present. There is development of a right apica l pneumothorax measuring up to 3.5 cm. Heart mildly enlarged. Diffuse interstitial density. Subcutane ous emphysema along the right chest wall. IMPRESSION: 1. Apically directed right-sided chest tube. Development of a 3.5 cm apical right-sided pneumothorax. 2. Surgical changes right hilum. Mild interstitial density bilaterally persists, possible mild pulmon sheri vascular congestion.
[2023-07-25] MEDS ORDERED: DEXTROSE 5% IN WATER 1,000 ML with SODIUM BICARB (1 MEQ/ML) 150 ML IV SCH (08:45)
--- NOTE | 2023-07-25 08:53 | P.PN ---
Subjective Progress Note Date: 07/25/23 A very pleasant 87-year-old male patient has difficulties in hearing The patient was referred to me for an abnormal CAT scan of the chest that showed a focal 5.3 cm area of airspace disease in the right upper lobe and this was initially identified on a chest x-ray that was done on 03/22/2023 and this abnormality was not present back on a previous chest x-ray from 2016. As such, this is a new abnormality. The findings have remained persistent between 03/22/2023 chest x-ray and the CAT scan of the chest that was done on 04/12/2023. The possibilities that were entertained include chronic pneumonias, low-grade adenocarcinoma, lymphoma, etc. There is not a 7 mm lingular nodule and questionable 1.2 cm left basilar nodule. The patient also has some background emphysema, extensive triple-vessel coronary artery calcification, mediastinal lymph node calcification which is highly suggestive of previous TB exposure. 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 In fact, his mother because of complications of TB when he was 7 years old. The patient has checked positive for PPD and he has not received chemoprophylaxis with INH. He has rheumatoid arthritis. Is not taking any form of immunosuppression this point in time. He has worked in coal mines for many years. He has also smoked and he quit smoking 15-20 years ago. The PET/CT was completed on 05/20/2023 and the patient has a right upper lobe mass which is compatible with neoplasm. The mass itself is showing increased uptake with an SUV of 4.42. The same time, there was a superior hilar lymph node measuring SUV of 2.7 and additional lymph node and infrahilar area. Overall, there are 2 lymph nodes seen in the right hilum. I did a lengthy discussion with the son was also present. The patient is insistent biopsy for tissue diagnosis. Despite his age, his overall functionality is adequate. He is interested in establishing a diagnosis. Based on that, I recommended a robotic ion bronchoscopy. No hemoptysis. No other new complaints otherwise for now. He underwent a bronchoscopy without any major issues. He encountered some sore throat. The bronchoscopy was done and the right upper lobe mass was biopsied and the results are consistent with adenocarcinoma. As such, the patient is diagnosed having lung cancer. We discussed the findings. We will going to get a second opinion from oncology regarding treatment options. The patient is not interested in surgery. He is not interested in systemic chemotherapy at this point in time. Surgery on 07/24/2020 3 AM this morning I'm seeing this patient in the intensive care unit for a follow-up. The patient is doing well. He underwent a robotic-assisted thoracoscopic right upper lobectomy along with mediastinal lymph node dissection. He also received intercostal nerve block at 3 different levels. Currently, he is in the intensive care unit, hemodynamically stable on 3 L of oxygen by nasal cannula. The postop chest x- ray was done and reviewed and show some subcutaneous emphysema along the right chest wall and the neck area. I do not appreciate any pneumothorax. The p atient has a right-sided chest tube in place. Output from the chest tube is in order of 200 mL of bloody output and there is some mild air leak. The patient remains on oxygen and is currently on 3 L nasal cannula. No other complaints otherwise for now. The patient is complaining of pain at the surgical 1 sets and currently tramadol when necessary for pain control. He is awake and alert and communicating. On today's evaluation of 07/25/2023, the patient is postop day #1 following a right upper lobe resection. He is complaining of having some shortness of breath. He is currently on oxygen at 6 L nasal cannula. The patient has a right-sided chest tube in place. Total amount of output has been in the order of 250 mL since arrival from the operating room. Output is bloody. I do not appreciate any air leak on today's evaluation. A repeat chest x-ray was done at around 4 AM this morning and it showed a small apical pneumothorax. The right- sided chest tube is in a good location. The patient has a pulse ox of 94%. He is using the incentive spirometer and is pulling approximately 700 mL. He is on IV fluids with normal saline at rate of 50 mL an hour. His sodium level is down to 125, bicarb is at 17, BUN is at 42 with a creatinine of 1.6 and a white cell cause of 12.7 with a hemoglobin of 13.4. Urine output has also been low at 10- 15 mL an hour. Objective - Vital Signs Vital signs: Vital Signs Temp 98.2 F 07/25/23 08:00 Pulse 74 07/25/23 08:42 Resp 26 H 07/25/23 08:00 BP 120/102 07/25/23 08:00 Pulse Ox 94 L 07/25/23 08:20 FiO2 Intake & Output 07/24/23 07/25/23 07/25/23 18:59 06:59 18:59 Intake Total 2200 886 53 Output Total 468 238 10 Balance 1732 648 43 Weight 83 kg Intake: IV 2200 886 53 A line 36 3 Dextrose 5%-0.45% NaCl 1, 150 650 50 000 ml @ 50 mls/hr IV . Q20H [facility] Rx#:[id number] Magnesium Sulfate-D5w Pmx 100 1 gm In Dextrose/Water 1 100ml.bag @ 100 mls/hr IVPB Q1H [facility] Rx#: [id number] ceFAZolin 2 gm In Sodium 100 100 Chloride 0.9% 50 ml @ 100 mls/hr IVPB ONCE PRN Rx# :[id number] Output: Chest Tube Drainage 140 0 Chest Tube Right 140 0 Urine 278 238 10 Estimated Blood Loss 50 Other: Voiding Method Indwelling Catheter ABP, PAP, CO, CI - Last Documented Arterial Blood Pressure 104/47 - Exam On the left. This, the patient is calm and comfortable, currently on 6 L O2 nasal cannula, communicating, he is hard of hearing Head exam was generally normal. There was no scleral icterus or corneal arcus. Mucous membranes were moist. Neck was supple and without jugular venous distension, thyromegaly, or carotid bruits. Carotids were easily palpable bilaterally. There was no adenopathy. Lungs sounds are diminished and the patient has scattered rhonchi heard bilaterally. The patient also has a right-sided chest tube in place. There is intermittent air leak and the total amount of output is in the order of 200 mL since arrival from the operating room. Cardiac exam revealed the PMI to be normally situated and sized. The rhythm was regular and no extrasystoles were noted during several minutes of auscultation. The first and second heart sounds were normal and physiologic splitting of the second heart sound was noted. There were no murmurs, rubs, clicks, or gallops., The patient has some occasional PACs Abdominal exam revealed normal bowel sounds. The abdomen was soft, non-tender, and without masses, organomegaly, or appreciable enlargement of the abdominal aorta. Examination of the extremities revealed easily palpable radial, femoral and pedal pulses. There was no cyanosis, clubbing or edema. Examination of the skin revealed no evidence of significant rashes, suspicious appearing nevi or other concerning lesions. Neurologically, the patient is awake and alert and the patient does not have any focal neurological deficit. Cranial nerves are essentially intact. - Labs CBC & Chem 7: 07/25/23 05:00 07/25/23 05:00 Labs: Abnormal Lab Results - Last 24 Hours (Table) 07/17/23 07/24/23 07/24/23 Range/Units 11:37 14:31 15:28 WBC 14.5 H (3.8-10.6) k/uL RBC 4.26 L (4.30-5.90) m/uL Hgb 12.2 L (13.0-17.5) gm/dL Hct 36.9 L (39.0-53.0) % Neutrophils # (1.3-7.7) k/uL Sodium (137-145) mmol/L Potassium (3.5-5.1) mmol/L Chloride (98-107) mmol/L Carbon Dioxide (22-30) mmol/L BUN (9-20) mg/dL Creatinine (0.66-1.25) mg/dL Glucose (74-99) mg/dL POC Glucose (mg/dL) 195 H (70-110) mg/dL Calcium (8.4-10.2) mg/dL Phosphorus (2.5-4.5) mg/dL AST (17-59) U/L ALT (4-49) U/L Crossmatch See Detail 07/24/23 07/25/23 07/25/23 Range/Units 15:28 05:00 05:00 WBC 12.7 H (3.8-10.6) k/uL RBC (4.30-5.90) m/uL Hgb (13.0-17.5) gm/dL Hct (39.0-53.0) % Neutrophils # 10.4 H (1.3-7.7) k/uL Sodium 129 L 125 L (137-145) mmol/L Potassium 5.2 H (3.5-5.1) mmol/L Chloride 95 L (98-107) mmol/L Carbon Dioxide 20 L 17 L (22-30) mmol/L BUN 34 H 42 H (9-20) mg/dL Creatinine 1.60 H (0.66-1.25) mg/dL Glucose 193 H 147 H (74-99) mg/dL POC Glucose (mg/dL) (70-110) mg/dL Calcium 8.3 L 8.2 L (8.4-10.2) mg/dL Phosphorus 5.6 H (2.5-4.5) mg/dL AST 382 H (17-59) U/L ALT 60 H (4-49) U/L Crossmatch Assessment and Plan Plan: Right upper lobe adenocarcinoma/mass and the patient is post robotic-assisted right upper lobe resection patient is currently postop day #1. The patient's had a 5.3 cm masslike opacity in the right upper lobe mass in the preop PET/CT showed increase uptake in the right suprahilar lymph node with an SUV of 2.7 and additional lymph node and infrahilar area. Repeat chest x-ray is pending. The x-ray from 4:00 this morning showed a 10% right-sided pneumothorax. I do not appreciate any ongoing air leak for now. The chest tube is in a good location. Positive PPD and the patient has not received chemo prophylaxis with INH Coronary artery disease Peripheral vascular disease Hyperlipidemia Rheumatoid arthritis COPD Impaired hearing History of basal cell carcinoma of the skin Acute kidney injury and the creatinine is up to 1.6 Not and get metabolic acidosis Hyperkalemia with a potassium level of 5.2 Sinus bradycardia versus junctional rhythm, we'll obtain a 12-lead EKG Plan Repeat chest x-ray Keep the chest tube to suction Give the patient 2 doses of IV Solu-Medrol 60 mg IV 12 as the patient was noted to have some increased bronchospasm wheezing Pain control with tramadol. The patient may also received Dilaudid 0.5 mg every 4-6 hours on a when necessary basis Incentive spirometer Data chest x-ray Monitor the output from the chest tube Monitor air leak start the patient on bicarb infusion at the rate of 75 mL an hour Monitor urine output Hemodynamically stable Resume all medications IV cefazolin for antibiotic prophylaxis 12 lead ECG cardiology consult Echo Heparin subcu for DVT prophylaxis We'll continue to follow make further recommendations based on his progress
[2023-07-25] MEDS: HEPARIN SODIUM,PORCINE 5,000 UNIT/ML 1 ML VIAL SQ SCH ×3 (08:57→23:47)
[2023-07-25] MEDS: ASPIRIN 81 MG PO SCH ×2 (08:59→20:30)
[2023-07-25] MEDS: CYANOCOBALAMIN 500 MCG TAB PO SCH (08:59)
[2023-07-25] MEDS: CHOLECALCIFEROL 25 MCG (1000 IU) TABLET PO SCH (08:59)
[2023-07-25] MEDS: MULTIVITAMINS, THERA 1 EACH TAB PO SCH (08:59)
[2023-07-25] MEDS ORDERED: hydroCHLOROthiazide 25 MG TAB PO SCH (09:00)
[2023-07-25] MEDS ORDERED: NON FORMULARY DRUG (Omega-3/Dha/Epa/Fish Oil [Fish Oil 1,000 Mg Softgel] 1 EACH Capsule) PO SCH (09:00)
[2023-07-25] MEDS ORDERED: SODIUM CHLORIDE TAB 1 GM TAB PO SCH (09:00)
--- NOTE | 2023-07-25 09:04 | P.PN ---
Subjective Progress Note Date: 07/25/23 Principal diagnosis: Lung cancer, adenocarcinoma. History of CAD with previous CO and PCI, hypertension, hyperlipidemia, previous tobacco dependence, COPD, peripheral arterial disease, BPH, rheumatoid arthritis POD #1 bronchoscopy, robotic-assisted thoracoscopic surgery with right upper lobectomy, mediastinal lymph node dissection, intercostal nerve block at 3 levels Postoperative bradycardia, unexpected, not on AV vic blocking agents Postoperative acute kidney injury and hyperkalemia, somewhat expected as patient had borderline kidney function and high normal levels of potassium preoperative The patient was seen and examined sitting up in bed in the intensive care unit in no acute distress although patient does complain of increased shortness of breath and has had higher oxygen requirements. Currently on 6 L nasal cannula with oxygen saturation in the mid 90s. Only able to achieve 750 mL on his incentive spirometry, weak cough. Appears to be in slow afib vs accelerated junctional rhythm. Blood pressure, urine output borderline. Right pleural chest tube remains present to continuous wall suction with no air leak present. Objective - Vital Signs Vital signs: Vital Signs Temp 97.7 F 07/25/23 04:00 Pulse 73 07/25/23 07:00 Resp 25 H 07/25/23 07:00 BP 90/61 07/25/23 07:00 Pulse Ox 95 07/25/23 07:00 FiO2 Intake & Output 07/24/23 07/25/23 07/25/23 18:59 06:59 18:59 Intake Total 2200 886 53 Output Total 468 238 10 Balance 1732 648 43 Weight 83 kg Intake: IV 2200 886 53 A line 36 3 Dextrose 5%-0.45% NaCl 1, 150 650 50 000 ml @ 50 mls/hr IV . Q20H JULIANA Rx#:[id number] Magnesium Sulfate-D5w Pmx 100 1 gm In Dextrose/Water 1 100ml.bag @ 100 mls/hr IVPB Q1H JULIANA Rx#: [id number] ceFAZolin 2 gm In Sodium 100 100 Chloride 0.9% 50 ml @ 100 mls/hr IVPB ONCE PRN Rx# :[id number] Output: Chest Tube Drainage 140 0 Chest Tube Right 140 0 Urine 278 238 10 Estimated Blood Loss 50 Other: Voiding Method Indwelling Catheter ABP, PAP, CO, CI - Last Documented Arterial Blood Pressure 110/39 - Exam CONSTITUTIONAL: Appears comfortable, cooperative, no acute distress RESPIRATORY: Lungs sounds diminished bilaterally, right greater than left. Respirations even, slightly labored. Currently on 6 L nasal cannula with oxygen saturation 96%. Able to achieve 750 mL on incentive spirometry. Weak cough. CARDIOVASCULAR: S1, S2 present. Irregular slow rate and rhythm, slow A. fib vs. accelerated junctional rhythm on telemetry. Palpable peripheral pulses bilaterally. No edema present. No calf pain or tenderness noted. SCDs present. GASTROINTESTINAL: Abdomen soft, nontender, nondistended. Active bowel sounds present 4 quadrants. Tolerating diet GENITOURINARY: Gibson present draining clear, yellow urine. Urine output 10-25 mL per hour overnight INTEGUMENTARY: Skin is warm and dry NEUROLOGIC: Cranial nerves II through XII intact MUSKULOSKELETAL: Able to move all extremities, strength equal bilaterally, gait normal PSYCHIATRIC: Alert and oriented to person place and time, appropriate affect, intact judgment and insight INVASIVE LINES AND TUBES: Right pleural chest tube present continuous wall suction, no air leak present, 250 mL serosanguineous drainage overnight. - Allied health notes Allied health notes reviewed: nursing - Labs CBC & Chem 7: 07/25/23 05:00 07/25/23 05:00 Labs: Abnormal Lab Results - Last 24 Hours (Table) 07/17/23 07/24/23 07/24/23 Range/Units 11:37 14:31 15:28 WBC 14.5 H (3.8-10.6) k/uL RBC 4.26 L (4.30-5.90) m/uL Hgb 12.2 L (13.0-17.5) gm/dL Hct 36.9 L (39.0-53.0) % Neutrophils # (1.3-7.7) k/uL Sodium (137-145) mmol/L Potassium (3.5-5.1) mmol/L Chloride (98-107) mmol/L Carbon Dioxide (22-30) mmol/L BUN (9-20) mg/dL Creatinine (0.66-1.25) mg/dL Glucose (74-99) mg/dL POC Glucose (mg/dL) 195 H (70-110) mg/dL Calcium (8.4-10.2) mg/dL Phosphorus (2.5-4.5) mg/dL AST (17-59) U/L ALT (4-49) U/L Crossmatch See Detail 07/24/23 07/25/23 07/25/23 Range/Units 15:28 05:00 05:00 WBC 12.7 H (3.8-10.6) k/uL RBC (4.30-5.90) m/uL Hgb (13.0-17.5) gm/dL Hct (39.0-53.0) % Neutrophils # 10.4 H (1.3-7.7) k/uL Sodium 129 L 125 L (137-145) mmol/L Potassium 5.2 H (3.5-5.1) mmol/L Chloride 95 L (98-107) mmol/L Carbon Dioxide 20 L 17 L (22-30) mmol/L BUN 34 H 42 H (9-20) mg/dL Creatinine 1.60 H (0.66-1.25) mg/dL Glucose 193 H 147 H (74-99) mg/dL POC Glucose (mg/dL) (70-110) mg/dL Calcium 8.3 L 8.2 L (8.4-10.2) mg/dL Phosphorus 5.6 H (2.5-4.5) mg/dL AST 382 H (17-59) U/L ALT 60 H (4-49) U/L Crossmatch - Imaging and Cardiology Chest x-ray: report reviewed, image reviewed Assessment and Plan Assessment: Lung cancer, adenocarcinoma, status post bronchoscopy, robotic-assisted thoracoscopic surgery with right upper lobectomy, mediastinal lymph node dissection, intercostal nerve block at 3 levels Acute hypoxic respiratory failure, non-anion gap metabolic acidosis History of CAD with previous CO and PCI History of hypertension, currently borderline hypotensive Hyperlipidemia, treated Previous tobacco dependence COPD, FEV1 92% of predicted Peripheral arterial disease BPH Rheumatoid arthritis Postoperative bradycardia Postoperative acute kidney injury and hyperkalemia Plan: Continue chest tube to wall suction, repeat chest x-ray Hold parameters placed on Cozaar, hydrochlorothiazide and amlodipine discontinued Wean O2 as tolerated. Encourage incentive spirometry is 10 times every hour while awake. Bronchodilators/steroids per pulmonology Will monitor daily x-rays and labs To be started on IV sodium bicarb per pulmonology Cardiology consulted regarding rhythm, patient is not on any AV vic blocking agents Increase activity as tolerated GI/DVT prophylaxis Pain control with current medication regimen. No Toradol due to JAKUB More recommendations to follow
[2023-07-25] MEDS: LOSARTAN 50 MG TAB PO SCH (09:09)
--- NOTE | 2023-07-25 09:26 | XR ---
EXAMINATION TYPE: XR chest 1V portable DATE OF EXAM: 07/25/2023 Comparison: Earlier today Clinical History: 87-year-old male repeat for follow up of pneumo Findings: Right apical pneumothorax estimated at 3.3 cm versus 3.5 cm, previously. Likely smaller. Right-sided apically directed chest tube remains in place. Trace right pleural effusion. Right-sided subcutaneous emphysema is similar. Mild interstitial density is similar. Heart is enlarged. Impression: 1. Right-sided chest tube in place. Small right apical pneumothorax measuring 3.3 cm versus 3.5 cm ea rlier today. Relatively similar. 2. Ongoing mild pulmonary vascular congestion. Trace right pleural effusion better seen now.
[2023-07-25] MEDS ORDERED: SODIUM BICARB 8.4% 50 ML SYR (1 MEQ/ML) IV STA ×2 (11:29→15:13)
[2023-07-25] MEDS: traMADol 50 MG TAB PO PRN ×2 (12:14→19:30)
--- NOTE | 2023-07-25 12:49 | CA ---
Transthoracic Echo Report Name: Elijah Ochoa Age: 87 Gender: M : 1935 Exam Date: 07/25/2023 09:15 Exam Location: [facility] Ht (in): 68 Wt (lb): 182 Ordering Physician: Sancho Wood MD Attending/Referring Phys: Retail Customer Service Representative Evelyne Escalona [facility] Procedure CPT: Indications: EF Cardiac Hx: Technical Quality: Technically difficult study Contrast 1: Lumason Total Dose (mL): 5 Contrast 2: Total Dose (mL): MEASUREMENTS (Male / Female) Normal Values 2D ECHO LV Diastolic Diameter PLAX 4.3 cm 4.2 - 5.9 / 3.9 - 5.3 cm LV Systolic Diameter PLAX 3.2 cm IVS Diastolic Thickness 1.4 cm 0.6 - 1.0 / 0.6 - 0.9 cm LVPW Diastolic Thickness 1.1 cm 0.6 - 1.0 / 0.6 - 0.9 cm LV Relative Wall Thickness 0.6 LVOT Diameter 2.0 cm Ascending Aorta Diameter 3.9 cm M-MODE Aortic Root Diameter MM 2.9 cm LA Systolic Diameter MM 5.1 cm LA Ao Ratio MM 1.8 AV Cusp Separation MM 2.2 cm DOPPLER AV Peak Velocity 221.8 cm/s AV Peak Gradient 22.3 mmHg AV Mean Velocity 165.3 cm/s AV Mean Gradient 12.0 mmHg AV Velocity Time Integral 47.3 cm LVOT Peak Velocity 126.9 cm/s LVOT Peak Gradient 6.4 mmHg LVOT Velocity Time Integral 22.8 cm LVOT Stroke Volume 68.2 cm??? LVOT Stroke Volume Index 34.7 ml/m??? LVOT Cardiac Index 2275.1 cm???/min???m??? AV Area Cont Eq vti 1.4 cm??? AV Area Cont Eq pk 1.7 cm??? Mitral E Point Velocity 56.1 cm/s Mitral A Point Velocity 88.7 cm/s Mitral E to A Ratio 0.6 MV Deceleration Time 258.8 ms LV E' Lateral Velocity 8.8 cm/s Mitral E to LV E' Lateral Ratio 6.4 LV E' Septal Velocity 10.0 cm/s Mitral E to LV E' Septal Ratio 5.6 TR Peak Velocity 327.0 cm/s TR Peak Gradient 42.8 mmHg Right Atrial Pressure 3.0 mmHg Pulmonary Artery Systolic Pressu 45.8 mmHg Right Ventricular Systolic Press 45.8 mmHg FINDINGS Left Ventricle Moderately increased septal wall thickness. Mildly increased posterior wall thickness. Left ventricular cavity size normal. Normal left ventricular systolic function with no obvious regional wall motion abnormalities. Left ventricular ejection fraction is estimated at 55-60%. Right Ventricle Right ventricle not well visualized. Moderate pulmonary hypertension. Right Atrium Right atrium not well visualized. Left Atrium Normal left atrial size. Mitral Valve Mitral valve thickened. Trace mitral regurgitation. Aortic Valve Trileaflet aortic valve. Diffuse thickening of the aortic valve cusps without reduced excursion. Mild aortic stenosis with a peak gradient of 22.35 mmHg and a mean gradient of 12.05 mmHg. No aortic regurgitation. Tricuspid Valve Tricuspid valve not well visualized. Mild tricuspid regurgitation. Pulmonic Valve Pulmonic valve not well visualized. Pericardium No pericardial effusion. Echo free space anterior to the right ventricle likely represents a fat pad. Aorta Normal size aortic root and mildly dilated proximal ascending aorta. CONCLUSIONS Normal LV function Moderate pulmonary hypertension Mild aortic stenosis Previewed by: Dr. Isidro Gray MD (Electronically Signed) Final Date: 25 July 2023 12:48
[2023-07-25] MEDS: methylPREDNISolone SOD SUCCI 125 MG/2 ML VIAL IV SCH (15:22)
[2023-07-25] MEDS: ACETAMINOPHEN TAB 325 MG TAB PO PRN (15:38)
[2023-07-25] MEDS: ATORVASTATIN 10 MG TAB PO SCH (20:30)
[2023-07-25] MEDS: SENNOSIDES-DOCUSATE SODIUM 1 EACH TAB PO SCH (20:30)
[2023-07-26 04:59] LABS: HCT 34.5 % (39.0-53.0); HGB 11.8 gm/dL (13.0-17.5); MCH 29.5 pg (25.0-35.0); MCHC 34.3 g/dL (31.0-37.0); Mean Platelet Volume 8.3; Platelet Count 276 k/uL (150-450); RBC 4.01 m/uL (4.30-5.90); RDW 12.8 % (11.5-15.5); WBC 12.9 k/uL (3.8-10.6)
[2023-07-26 05:23] LABS: African American GFR (CKD) 61 (>60 ml/min/1.73 sqM); Anion Gap 10 mmol/L; Blood Urea Nitrogen 37 mg/dL (9-20); Calcium 8.2 mg/dL (8.4-10.2); Carbon Dioxide 24 mmol/L (22-30); Chloride 90 mmol/L (98-107); Glucose 142 mg/dL (74-99); Non-African American GFR(CKD) 53 (>60 ml/min/1.73 sqM); Potassium 4.7 mmol/L (3.5-5.1); Sodium 124 mmol/L (137-145)
[2023-07-26] MEDS: PANTOPRAZOLE 40 MG TABLET PO SCH (05:58)
[2023-07-26] MEDS: traMADol 50 MG TAB PO PRN ×3 (05:58→23:08)
[2023-07-26] MEDS ORDERED: bisacodyL 10 MG SUPP RECTAL STA (06:47)
--- NOTE | 2023-07-26 07:05 | P.PN ---
Subjective Progress Note Date: 07/26/23 Principal diagnosis: Bradycardia The patient is a pleasant 87-year-old gentleman who sees Dr. Barakat irregularly with a past medical history significant for coronary artery disease with previous stenting with unknown details, the stenting performed more than 20 years ago as well as hypertension and dyslipidemia and peripheral arterial disease. Recently he was diagnosed with a mass involving the right upper lobe and he was admitted to the hospital yesterday where he underwent assistant professor of surgery right upper lobectomy by Dr. Baer. We consulted to see the patient because of bradycardia noted when the patient was admitted to the intensive care unit. An EKG was performed and showed what it seems to be AV block. Unfortunately the EKG is unavailable at this point and we are in process of obtaining another one. The patient is bradycardic with heart rate in the 50s and 60s. Pressure has been stable but appeared to be marginally low. The patient is not experiencing any symptoms of dizziness or lightheadedness and no presyncope or syncope and no symptoms of any chest pain or chest discomfort but does have shortness of breath which appeared to be chronic. Currently he is not on any AV vic chastity agents. No TSH or free T4 performed and we are in process of getting one. Also echocardiogram was performed on BR] of getting an echo as well. Blood work revealed hyperkalemia with potassium of 5.2. His kidney function is abnormal as well and currently his renal failure. No history of bradycardia and he was not on any AV vic chastity agents at home. The examination is remarkable for regular rhythm with a systolic murmur at the right upper sternal border and diminished breathing sounds bilaterally. July [id number] The patient was seen and evaluated this morning. The bradycardia has resolved and currently he is in sinus rhythm with heart rate in the 70s. He underwent an echo which revealed normal LV systolic function was mild aortic stenosis and moderate pulmonary hypertension. TSH came in to be unremarkable.. He is doing overall good and he seems to be stable with a normal blood pressure as well as heart rate. At this point I would continue the current medical regimen and continue following up with the patient The examination is remarkable for regular rhythm with a systolic murmur and diminished breathing sounds bilaterally Assessment Status post robotic surgery as described above Asymptomatic bradycardia which has resolved CAD as described above Hyperkalemia Failure Plan Continue avoiding any AV vic chastity agents Continue monitor the heart rate and blood pressure Follow-up with the patient Objective - Vital Signs Vital signs: Vital Signs Temp 98.7 F 07/26/23 04:00 Pulse 75 07/26/23 06:00 Resp 23 07/26/23 06:00 BP 136/68 07/26/23 06:00 Pulse Ox 95 07/26/23 06:00 FiO2 Intake & Output 07/25/23 07/26/23 07/26/23 18:59 06:59 18:59 Intake Total 638 1100 Output Total 440 1212 Balance 198 -112 Weight 85.1 kg Intake: IV 268 A line 18 Dextrose 5% in Water 1, 150 000 ml @ 75 mls/hr IV . [id number] JULIANA with Sodium Bicarb (1 Meq/ml) 150 ml Rx#:[id number] Dextrose 5%-0.45% NaCl 1, 100 000 ml @ 50 mls/hr IV . Q20H JULIANA Rx#:[id number] Oral 370 1100 Output: Chest Tube Drainage 70 170 Chest Tube Right 70 170 Urine 370 875 Uretheral (Gibson) 400 Post Void Residual 167 Other: Voiding Method Indwelling Catheter Urinal ABP, PAP, CO, CI - Last Documented Arterial Blood Pressure 124/51 - Labs CBC & Chem 7: 07/26/23 03:59 07/26/23 03:59 Labs: Abnormal Lab Results - Last 24 Hours (Table) 07/17/23 07/26/23 07/26/23 Range/Units 11:37 03:59 03:59 WBC 12.9 H (3.8-10.6) k/uL RBC 4.01 L (4.30-5.90) m/uL Hgb 11.8 L (13.0-17.5) gm/dL Hct 34.5 L (39.0-53.0) % Sodium 124 L (137-145) mmol/L Chloride 90 L (98-107) mmol/L BUN 37 H (9-20) mg/dL Glucose 142 H (74-99) mg/dL Calcium 8.2 L (8.4-10.2) mg/dL Crossmatch See Detail
--- NOTE | 2023-07-26 07:27 | XR ---
EXAMINATION TYPE: XR chest 1V portable DATE OF EXAM: 07/26/2023 4:30 AM COMPARISON: Chest radiographs from TECHNIQUE: XR chest 1V portable Portable AP radiograph of the chest. CLINICAL INDICATION:Male, 87 years old with history of post lobectomy; FINDINGS: Lungs/Pleura: Postsurgical changes from right sided lobectomy. Left lung is relatively clear. Bluntin g of the right costophrenic angle. Similar right apical pneumothorax measuring 3.2 cm. Pulmonary vascularity: Mild pulmonary vascular congestion. Heart/mediastinum: Cardiomediastinal silhouette is stable with shift to the right from volume loss fr om lobectomy. Musculoskeletal: No acute osseous pathology. Other findings: Decreased right sided subcutaneous emphysema. Lines/Tubes: Right chest tube is in stable position with tip directed towards the apex. IMPRESSION: 1. Stable position right-sided chest tube with small right apical pneumothorax unchanged. 2. Mild pulmonary vascular congestion with trace right pleural effusion.
--- NOTE | 2023-07-26 07:54 | P.PN ---
Subjective Progress Note Date: 07/26/23 Principal diagnosis: Lung cancer, adenocarcinoma. History of CAD with previous SC and PCI, hypertension, hyperlipidemia, previous tobacco dependence, COPD, peripheral arterial disease, BPH, rheumatoid arthritis POD #2 bronchoscopy, robotic-assisted thoracoscopic surgery with right upper lobectomy, mediastinal lymph node dissection, intercostal nerve block at 3 levels Postoperative bradycardia, unexpected, not on AV vic blocking agents Postoperative acute kidney injury and hyperkalemia, somewhat expected as patient had borderline kidney function and high normal levels of potassium preoperative The patient was seen and examined sitting up in a recliner in the intensive care unit in no acute distress about to eat breakfast. Currently on 6 L nasal cannula with oxygen saturation in the mid 90s, weaned down to 2 L with oxygen saturation in the low to mid 90s. Able to achieve 1250 mL on his incentive spirometry, weak cough. Currently in sinus rhythm, hemodynamically stable. Right pleural chest tube remains present to [facility] with no air leak present. Transfer orders were placed for [address] [place] [address] cardiac stepdown unit yesterday, no bed available. Objective - Vital Signs Vital signs: Vital Signs Temp 98.7 F 07/26/23 04:00 Pulse 64 07/26/23 07:00 Resp 22 07/26/23 07:00 BP 136/67 07/26/23 07:00 Pulse Ox 96 07/26/23 07:00 FiO2 Intake & Output 07/25/23 07/26/23 07/26/23 18:59 06:59 18:59 Intake Total 638 1100 Output Total 440 1212 0 Balance 198 -112 0 Weight 85.1 kg Intake: IV 268 A line 18 Dextrose 5% in Water 1, 150 000 ml @ 75 mls/hr IV . [id number] JULIANA with Sodium Bicarb (1 Meq/ml) 150 ml Rx#:[id number] Dextrose 5%-0.45% NaCl 1, 100 000 ml @ 50 mls/hr IV . Q20H JULIANA Rx#:[id number] Oral 370 1100 Output: Chest Tube Drainage 70 170 Chest Tube Right 70 170 Urine 370 875 0 Uretheral (Gibson) 400 Post Void Residual 167 Other: Voiding Method Indwelling Catheter Urinal ABP, PAP, CO, CI - Last Documented Arterial Blood Pressure 124/51 - Exam CONSTITUTIONAL: Appears comfortable, cooperative, no acute distress RESPIRATORY: Lungs sounds diminished bilaterally, right greater than left. Respirations even, slightly labored. Currently on 2 L nasal cannula with oxygen saturation 93%. Able to achieve 1250 mL on incentive spirometry. Weak cough. CARDIOVASCULAR: S1, S2 present. Regular rate and rhythm, sinus rhythm on telemetry. Palpable peripheral pulses bilaterally. No edema present. No calf pain or tenderness noted. SCDs present. GASTROINTESTINAL: Abdomen soft, nontender, nondistended. Active bowel sounds present 4 quadrants. Tolerating diet GENITOURINARY: Gibson discontinued at midnight, due to void INTEGUMENTARY: Skin is warm and dry NEUROLOGIC: Cranial nerves II through XII intact MUSKULOSKELETAL: Able to move all extremities, strength equal bilaterally, gait normal PSYCHIATRIC: Alert and oriented to person place and time, appropriate affect, intact judgment and insight INVASIVE LINES AND TUBES: Right pleural chest tube present to waterseal, no air leak present, 200 mL serosanguineous drainage in the last 24 hours - Allied health notes Allied health notes reviewed: nursing - Labs CBC & Chem 7: 07/26/23 03:59 07/26/23 03:59 Labs: Abnormal Lab Results - Last 24 Hours (Table) 07/17/23 07/26/23 07/26/23 Range/Units 11:37 03:59 03:59 WBC 12.9 H (3.8-10.6) k/uL RBC 4.01 L (4.30-5.90) m/uL Hgb 11.8 L (13.0-17.5) gm/dL Hct 34.5 L (39.0-53.0) % Sodium 124 L (137-145) mmol/L Chloride 90 L (98-107) mmol/L BUN 37 H (9-20) mg/dL Glucose 142 H (74-99) mg/dL Calcium 8.2 L (8.4-10.2) mg/dL Crossmatch See Detail - Imaging and Cardiology Chest x-ray: report reviewed, image reviewed Assessment and Plan Assessment: Lung cancer, adenocarcinoma, status post bronchoscopy, robotic-assisted thoracoscopic surgery with right upper lobectomy, mediastinal lymph node dissection, intercostal nerve block at 3 levels Acute hypoxic respiratory failure, non-anion gap metabolic acidosis, resolved History of CAD with previous SC and PCI History of hypertension Hyperlipidemia, treated Previous tobacco dependence COPD, FEV1 92% of predicted Peripheral arterial disease BPH Rheumatoid arthritis Postoperative bradycardia, resolved Postoperative acute kidney injury and hyperkalemia, resolved Plan: Will discontinue chest tube today Wean O2 as tolerated. Encourage incentive spirometry is 10 times every hour while awake. Bronchodilators/steroids per pulmonology Will monitor daily x-rays and labs Increase activity as tolerated GI/DVT prophylaxis Pain control with current medication regimen. No Toradol due to JAKUB Transfer orders placed for [address] yesterday, may transfer when bed available Likely will discharge to home later today versus tomorrow More recommendations to follow
[2023-07-26] MEDS: FORMOTEROL FUMARATE 20 MCG/2 ML NEBU INHALATION SCH ×2 (07:58→19:46)
[2023-07-26] MEDS: IPRATROPIUM-ALBUTEROL 3 ML NEB IH SCH ×4 (07:58→19:46)
[2023-07-26] MEDS: HEPARIN SODIUM,PORCINE 5,000 UNIT/ML 1 ML VIAL SQ SCH ×3 (08:33→23:09)
[2023-07-26] MEDS: CYANOCOBALAMIN 500 MCG TAB PO SCH (08:35)
[2023-07-26] MEDS: methylPREDNISolone SOD SUCCI 125 MG/2 ML VIAL IV SCH (08:35)
[2023-07-26] MEDS: ASPIRIN 81 MG PO SCH ×2 (08:35→20:01)
[2023-07-26] MEDS: CHOLECALCIFEROL 25 MCG (1000 IU) TABLET PO SCH (08:35)
[2023-07-26] MEDS: LOSARTAN 50 MG TAB PO SCH (08:35)
[2023-07-26] MEDS: SODIUM CHLORIDE TAB 1 GM TAB PO SCH ×2 (08:35→20:01)
[2023-07-26] MEDS: MULTIVITAMINS, THERA 1 EACH TAB PO SCH (08:35)
[2023-07-26] MEDS ORDERED: TOLVAPTAN 15 MG TABLET PO ONE (09:05)
--- NOTE | 2023-07-26 09:07 | P.PN ---
Subjective Progress Note Date: 07/26/23 A very pleasant 87-year-old male patient has difficulties in hearing The patient was referred to me for an abnormal CAT scan of the chest that showed a focal 5.3 cm area of airspace disease in the right upper lobe and this was initially identified on a chest x-ray that was done on 03/22/2023 and this abnormality was not present back on a previous chest x-ray from 2016. As such, this is a new abnormality. The findings have remained persistent between 03/22/2023 chest x-ray and the CAT scan of the chest that was done on 04/12/2023. The possibilities that were entertained include chronic pneumonias, low-grade adenocarcinoma, lymphoma, etc. There is not a 7 mm lingular nodule and questionable 1.2 cm left basilar nodule. The patient also has some background emphysema, extensive triple-vessel coronary artery calcification, mediastinal lymph node calcification which is highly suggestive of previous TB exposure. 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 In fact, his mother because of complications of TB when he was 7 years old. The patient has checked positive for PPD and he has not received chemoprophylaxis with INH. He has rheumatoid arthritis. Is not taking any form of immunosuppression this point in time. He has worked in coal mines for many years. He has also smoked and he quit smoking 15-20 years ago. The PET/CT was completed on 05/20/2023 and the patient has a right upper lobe mass which is compatible with neoplasm. The mass itself is showing increased uptake with an SUV of 4.42. The same time, there was a superior hilar lymph node measuring SUV of 2.7 and additional lymph node and infrahilar area. Overall, there are 2 lymph nodes seen in the right hilum. I did a lengthy discussion with the son was also present. The patient is insistent biopsy for tissue diagnosis. Despite his age, his overall functionality is adequate. He is interested in establishing a diagnosis. Based on that, I recommended a robotic ion bronchoscopy. No hemoptysis. No other new complaints otherwise for now. He underwent a bronchoscopy without any major issues. He encountered some sore throat. The bronchoscopy was done and the right upper lobe mass was biopsied and the results are consistent with adenocarcinoma. As such, the patient is diagnosed having lung cancer. We discussed the findings. We will going to get a second opinion from oncology regarding treatment options. The patient is not interested in surgery. He is not interested in systemic chemotherapy at this point in time. Surgery on 07/24/2020 3 AM this morning I'm seeing this patient in the intensive care unit for a follow-up. The patient is doing well. He underwent a robotic-assisted thoracoscopic right upper lobectomy along with mediastinal lymph node dissection. He also received intercostal nerve block at 3 different levels. Currently, he is in the intensive care unit, hemodynamically stable on 3 L of oxygen by nasal cannula. The postop chest x- ray was done and reviewed and show some subcutaneous emphysema along the right chest wall and the neck area. I do not appreciate any pneumothorax. The p atient has a right-sided chest tube in place. Output from the chest tube is in order of 200 mL of bloody output and there is some mild air leak. The patient remains on oxygen and is currently on 3 L nasal cannula. No other complaints otherwise for now. The patient is complaining of pain at the surgical 1 sets and currently tramadol when necessary for pain control. He is awake and alert and communicating. On today's evaluation of 07/25/2023, the patient is postop day #1 following a right upper lobe resection. He is complaining of having some shortness of breath. He is currently on oxygen at 6 L nasal cannula. The patient has a right-sided chest tube in place. Total amount of output has been in the order of 250 mL since arrival from the operating room. Output is bloody. I do not appreciate any air leak on today's evaluation. A repeat chest x-ray was done at around 4 AM this morning and it showed a small apical pneumothorax. The right- sided chest tube is in a good location. The patient has a pulse ox of 94%. He is using the incentive spirometer and is pulling approximately 700 mL. He is on IV fluids with normal saline at rate of 50 mL an hour. His sodium level is down to 125, bicarb is at 17, BUN is at 42 with a creatinine of 1.6 and a white cell cause of 12.7 with a hemoglobin of 13.4. Urine output has also been low at 10- 15 mL an hour. On today's evaluation of 07/26/2023, the patient is being seen in follow-up in the intensive care unit. The patient is currently postop day #2 following his right upper lobe resection. the patient is currently on 2 L of oxygen by nasal cannula. Pulse ox 94%. Using the incentive spirometer. A repeat chest x-ray was done today and the patient was found to have a stable right apical pneumothorax in the order of 10-15%. The patient is postop day #2 following a right upper lobectomy and mediastinal lymph node dissection. No active issues with pain. No evidence of air leak and the output from the right-sided chest tube is in order of 200 mL serosanguineous drainage over the past 24 hours. Sodiums of 124, serum bicarb is at 24 and the BUN is at 37 with a creatinine of 1.2. No other the patient was experiencing increased bronchospasm and wheeze yesterday. The patient was given to those of IV Solu-Medrol in his overall respiratory status improved compared to yesterday. He was also given 2 doses of sodium bicarbonate IV and the bicarb deficit is being replaced. The patient's sodium remains low, asymptomatic. IV fluids are currently at KVO.The patient was having a bradycardic rhythm yesterday and this was thought to be junctional bradycardia versus low rates atrial fibrillation. The heart rate is improved and the patient is currently in normal sinus rhythm. Echocardiogram was done and the patient has normal LV function, moderate degree of coronary hypertension, mild aortic stenosis. Objective - Vital Signs Vital signs: Vital Signs Temp 98.7 F 07/26/23 04:00 Pulse 77 07/26/23 08:25 Resp 22 07/26/23 07:00 BP 136/67 07/26/23 07:00 Pulse Ox 96 07/26/23 07:00 FiO2 97 07/26/23 08:00 Intake & Output 07/25/23 07/26/23 07/26/23 18:59 06:59 18:59 Intake Total 638 1100 Output Total 440 1212 0 Balance 198 -112 0 Weight 85.1 kg Intake: IV 268 A line 18 Dextrose 5% in Water 1, 150 000 ml @ 75 mls/hr IV . [id number] JULIANA with Sodium Bicarb (1 Meq/ml) 150 ml Rx#:[id number] Dextrose 5%-0.45% NaCl 1, 100 000 ml @ 50 mls/hr IV . Q20H JULIANA Rx#:[id number] Oral 370 1100 Output: Chest Tube Drainage 70 170 Chest Tube Right 70 170 Urine 370 875 0 Uretheral (Gibson) 400 Post Void Residual 167 Other: Voiding Method Indwelling Catheter Urinal ABP, PAP, CO, CI - Last Documented Arterial Blood Pressure 124/51 - Exam This, the patient is calm and comfortable, currently on 2 L O2 nasal cannula, communicating, he is hard of hearing Head exam was generally normal. There was no scleral icterus or corneal arcus. Mucous membranes were moist. Neck was supple and without jugular venous distension, thyromegaly, or carotid bruits. Carotids were easily palpable bilaterally. There was no adenopathy. Lungs sounds are diminished and the patient has scattered rhonchi heard bilaterally. The patient also has a right-sided chest tube in place. There is intermittent air leak and the total amount of output is in the order of 200 mL since arrival from the operating room. Cardiac exam revealed the PMI to be normally situated and sized. The rhythm was regular and no extrasystoles were noted during several minutes of auscultation. The first and second heart sounds were normal and physiologic splitting of the second heart sound was noted. There were no murmurs, rubs, clicks, or gallops., The patient has some occasional PACs Abdominal exam revealed normal bowel sounds. The abdomen was soft, non-tender, and without masses, organomegaly, or appreciable enlargement of the abdominal aorta. Examination of the extremities revealed easily palpable radial, femoral and pedal pulses. There was no cyanosis, clubbing or edema. Examination of the skin revealed no evidence of significant rashes, suspicious appearing nevi or other concerning lesions. Neurologically, the patient is awake and alert and the patient does not have any focal neurological deficit. Cranial nerves are essentially intact. - Labs CBC & Chem 7: 07/26/23 03:59 07/26/23 03:59 Labs: Abnormal Lab Results - Last 24 Hours (Table) 07/17/23 07/26/23 07/26/23 Range/Units 11:37 03:59 03:59 WBC 12.9 H (3.8-10.6) k/uL RBC 4.01 L (4.30-5.90) m/uL Hgb 11.8 L (13.0-17.5) gm/dL Hct 34.5 L (39.0-53.0) % Sodium 124 L (137-145) mmol/L Chloride 90 L (98-107) mmol/L BUN 37 H (9-20) mg/dL Glucose 142 H (74-99) mg/dL Calcium 8.2 L (8.4-10.2) mg/dL Crossmatch See Detail Assessment and Plan Plan: Right upper lobe adenocarcinoma/mass and the patient is post robotic-assisted right upper lobe resection patient is currently postop day #2. The patient's had a 5.3 cm masslike opacity in the right upper lobe mass in the preop PET/CT showed increase uptake in the right suprahilar lymph node with an SUV of 2.7 and additional lymph node and infrahilar area. Chest x-ray shows a persistent stable right apical pneumothorax, no evidence of any air leak, no evidence of any subcutaneous emphysema, Marshall from the chest tube is in order of 200 mL of serosanguineous material over the past 24 hours. 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 Not and get metabolic acidosis, improved and the bicarb deficit is better placed Hyponatremia, asymptomatic, rule out postoperative hyponatremia Sinus bradycardia versus junctional rhythm, recovered and the echocardiogram showed a preserved LV function with moderate degree of pulmonary hypertension Plan Postop hyponatremia, and the patient is being restricted of fluid intake, the patient was given sodium chloride tablets. Also given a dose of Samsca for his ongoing hyponatremia and postoperative SIADH right-sided chest tube still in place Continue bronchodilators Pain control with tramadol. Incentive spirometer Daily chest x-ray Monitor the output from the chest tube Monitor air leak Monitor urine output Hemodynamically stable Resume all medications 12 lead ECG cardiology consult Echo was noted and the patient has moderate degree of pulmonary hypertension, preserved LV function and a cardiac rhythm is improved and the patient is currently in normal sinus rhythm without any significant bradycardia Heparin subcu for DVT prophylaxis We'll continue to follow make further recommendations based on his progress
--- NOTE | 2023-07-26 10:29 | P.NPCON ---
History of Present Illness - Reason for Consult hyponatremia - History of Present Illness Reason for consultation: Hyponatremia History of present illness: Patient is a 87-year-old male seen in renal consultation for hyponatremia. Patient has history of lung cancer and underwent right robotic-assisted right upper lobectomy with mediastinal lymph node dissection on 07/24/2023. Patient was noted to be bradycardic this admission and is being followed by cardiology. Heart rate is currently well controlled. Blood pressures also well controlled. Patient's currently sitting up in chair. No vomiting or diarrhea. Oral intake has been good. Sodium level was 129 on admission and is down to 124 today. Creatinine also peaked at 1.6 and is 1.23 today. Patient does take Dyazide diuretic outpatient but it is currently held. He is currently off IV fluids. He does admit to drinking at least 3-4 glasses of cups of water in addition to juice throughout the day. Gibson catheter was removed this morning. He hasn't voided on his own yet. He denies chest pain. Vital signs are stable. General: No acute distress. HEENT: Head exam is unremarkable. On nasal cannula. LUNGS: No audible rhonchi or wheezes. HEART: Rate and Rhythm are regular. ABDOMEN: Nontender. EXTREMITITES: No edema. Past Medical History Past Medical History: Coronary Artery Disease (CAD), Cancer, Hearing Disorder / Deafness, Hyperlipidemia, Hypertension, Myocardial Infarction (MA), Prostate Disorder, Rheumatoid Arthritis (RA), Vascular Disorder Additional Past Medical History / Comment(s): Current right lung cancer. Hx skin cancer. PAD. BPH. Deaf left ear, hard of hearing in right ear. Pain with walking. positive PPD Last Myocardial Infarction Date:: 1999 History of Any Multi-Drug Resistant Organisms: None Reported Past Surgical History: Heart Catheterization With Stent, Orthopedic Surgery, Prostate Surgery Additional Past Surgical History / Comment(s): BILATERAL KNEE SURGERY, LEFT EAR BIOPSY 2010/REMOVAL LEFT EAR CHOLESTEATOMA, TURP, right leg surgery to improve circulation, bronchoscopy. Past Anesthesia/Blood Transfusion Reactions: No Reported Reaction Date of Last Stent Placement:: 1999 Past Psychological History: No Psychological Hx Reported Smoking Status: Former smoker Past Alcohol Use History: Occasional Additional Past Alcohol Use History / Comment(s): Quit smoking >30 years ago, smoked 1ppd. Past Drug Use History: None Reported - Past Family History Sister(s) Family Medical History: Cancer Additional Family Medical History / Comment(s): 3 sisters had cancer. Medications and Allergies Home Medications Medication Instructions Recorded Confirmed Type Aspirin 81 mg PO BID 02/26/14 07/24/23 History Cholecalciferol [Vitamin D3 (25 50 mcg PO DAILY 08/19/22 07/24/23 History Mcg = 1000 Iu)] Cyanocobalamin [Vitamin B-12] 500 mcg PO DAILY 08/19/22 07/24/23 History Force Factor Prostate Suppl 1 dose PO DAILY 08/19/22 07/24/23 History Losartan [Cozaar] 100 mg PO QAM 08/19/22 07/24/23 History Multivit-Min/Folic/Vit K/Lycop 1 each PO DAILY 08/19/22 07/24/23 History [Men's Multivitamin Tablet] [place]-3/Dha/Epa/Fish Oil [Fish Oil 1 each PO DAILY 08/19/22 07/24/23 History 1,000 mg Softgel] amLODIPine [Norvasc] 5 mg PO HS 08/19/22 07/24/23 History hydroCHLOROthiazide 25 mg PO DAILY 08/19/22 07/24/23 History Atorvastatin [Lipitor] 10 mg PO HS 06/05/23 07/24/23 History diphenhydrAMINE [Benadryl] 25 mg PO HS PRN 07/24/23 07/24/23 History Allergies Allergy/AdvReac Type Severity Reaction Status Date / Time No Known Allergies Allergy Verified 07/24/23 06:22 Physical Exam Vitals: Vital Signs Temp Pulse Resp BP Pulse Ox FiO2 07/26/23 08:25 77 07/26/23 08:00 70 97 07/26/23 07:00 64 22 136/67 96 07/26/23 06:00 75 23 136/68 95 07/26/23 05:00 73 19 112/91 94 L 07/26/23 04:00 98.7 F 75 134/70 94 L 07/26/23 03:00 76 20 135/65 94 L 07/26/23 02:00 75 19 131/61 94 L 07/26/23 01:00 74 23 128/65 95 07/26/23 00:00 98.4 F 80 20 120/54 96 07/25/23 23:00 77 25 H 115/57 95 07/25/23 22:00 77 12 137/68 94 L 07/25/23 21:00 87 22 144/73 94 L 07/25/23 20:13 85 07/25/23 20:03 85 07/25/23 20:00 98.1 F 81 19 134/73 98 07/25/23 19:54 80 07/25/23 19:00 81 22 119/59 94 L 07/25/23 18:00 73 15 117/70 95 07/25/23 17:00 84 32 H 124/73 94 L 07/25/23 16:08 83 07/25/23 16:00 98.4 F 82 25 H 132/59 95 07/25/23 15:59 81 07/25/23 15:00 79 21 117/59 96 07/25/23 14:00 80 29 H 127/103 94 L 07/25/23 13:00 81 24 114/64 93 L 07/25/23 12:00 97.7 F 64 16 104/79 94 L 07/25/23 11:37 72 07/25/23 11:28 72 07/25/23 11:00 66 32 H 95 Intake and Output 07/25/23 07/26/23 07/26/23 22:59 06:59 14:59 Intake Total 353 1000 Output Total 790 667 0 Balance -437 333 0 Intake: IV 3 A line 3 Oral 350 1000 Output: Chest Tube Drainage 150 50 Chest Tube Right 150 50 Urine 640 450 0 Uretheral (Gibson) 400 Post Void Residual 167 Other: Voiding Method Indwelling Catheter Urinal Weight 85.1 kg Results - Lab Results Most recent lab results Calcium 8.2 mg/dL (8.4-10.2) L 07/26/23 03:59 Phosphorus 5.6 mg/dL (2.5-4.5) H 07/24/23 15:28 Magnesium 2.1 mg/dL (1.6-2.3) 07/25/23 08:11 07/26/23 03:59 07/26/23 03:59 Assessment and Plan Plan: Assessment: 1. 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 Thiazide diuretic held. Sodium level CXXIV today. TSH normal. 2. Acute kidney injury secondary to vasomotor nephropathy from hemodynamic instability. Creatinine peaked at 1.6 this admission and is 1.23 today. 3. Lung cancer status post right upper lobectomy 07/24/2023. 4. Bradycardia. Amlodipine discontinued. Resolved. Cardiology following. Plan: Encourage oral intake. Add 1200 mL fluid restriction. Salt tabs started this morning. Check serum and urine osmolality and urine sodium level. Repeat labs in the morning. Will give Samsca if no improvement. Monitor bladder scans closely. Gibson catheter will need to be reinserted if persistently greater than 300 mL urine present on bladder scans. Thank you for the consultation. I will continue to follow the patient with you during his hospital stay.
[2023-07-26] MEDS ORDERED: TAMSULOSIN 0.4 MG CAP.ER.24H PO STA (10:48)
[2023-07-26 14:55] LABS: Appearance,Urine Clear (Clear); Bilirubin,Urine Negative (Negative); Blood,Urine Small (Negative); Color,Urine Yellow; Glucose,Urine (UA) Negative (Negative); Ketones,Urine Negative (Negative); Leukocyte Esterase,Urine Negative (Negative); Nitrite,Urine Negative (Negative); Protein,Urine Trace (Negative); RBC,Urine 10 /hpf (0-5); Specific Gravity,Urine 1.017 (1.001-1.035); Urobilinogen,Urine <2.0 mg/dL (<2.0); WBC,Urine 3 /hpf (0-5)
[2023-07-26] MEDS: ATORVASTATIN 10 MG TAB PO SCH (20:01)
[2023-07-26] MEDS: ACETAMINOPHEN TAB 325 MG TAB PO PRN (20:01)
[2023-07-26] MEDS: SENNOSIDES-DOCUSATE SODIUM 1 EACH TAB PO SCH (20:01)
[2023-07-27] MEDS: ACETAMINOPHEN TAB 325 MG TAB PO PRN ×3 (05:03→19:57)
[2023-07-27] MEDS: PANTOPRAZOLE 40 MG TABLET PO SCH (05:59)
[2023-07-27] MEDS: traMADol 50 MG TAB PO PRN ×3 (06:02→22:56)
--- NOTE | 2023-07-27 07:30 | XR ---
EXAMINATION TYPE: XR chest 2V DATE OF EXAM: 07/27/2023 COMPARISON: Radiograph 07/26/[address] 06/08/2023 HISTORY: 87-year-old male post lobectomy TECHNIQUE: PA and lateral views FINDINGS: Interval removal of the right-sided chest tube. Redemonstrated volume loss within the right hemithora x. Interstitial prominence persists. There is new air fluid level in the right paratracheal/medial ri ght upper lobe region. Trace effusions may be present on the lateral view. IMPRESSION: 1. Interval removal of a right-sided chest tube. There is an air-fluid level that remains in the ante rior right upper lung, possibly a small loculated hydropneumothorax. Attention on follow-up. 2. Ongoing mild pulmonary vascular congestion.
[2023-07-27 07:54] LABS: HCT 35.3 % (39.0-53.0); HGB 11.8 gm/dL (13.0-17.5); MCHC 33.4 g/dL (31.0-37.0); Mean Platelet Volume 7.5; Platelet Count 304 k/uL (150-450); RBC 4.05 m/uL (4.30-5.90); RDW 12.9 % (11.5-15.5); WBC 11.2 k/uL (3.8-10.6)
[2023-07-27 08:13] LABS: African American GFR (CKD) 74 (>60 ml/min/1.73 sqM); Anion Gap 9 mmol/L; Blood Urea Nitrogen 34 mg/dL (9-20); Calcium 8.4 mg/dL (8.4-10.2); Carbon Dioxide 26 mmol/L (22-30); Chloride 88 mmol/L (98-107); Glucose 102 mg/dL (74-99); Non-African American GFR(CKD) 64 (>60 ml/min/1.73 sqM); Potassium 5.1 mmol/L (3.5-5.1); Sodium 123 mmol/L (137-145)
[2023-07-27] MEDS: FORMOTEROL FUMARATE 20 MCG/2 ML NEBU INHALATION SCH ×2 (08:42→20:46)
[2023-07-27] MEDS: IPRATROPIUM-ALBUTEROL 3 ML NEB IH SCH ×4 (08:42→20:46)
[2023-07-27] MEDS: MULTIVITAMINS, THERA 1 EACH TAB PO SCH (10:42)
[2023-07-27] MEDS: SODIUM CHLORIDE TAB 1 GM TAB PO SCH ×2 (10:42→19:57)
[2023-07-27] MEDS: LOSARTAN 50 MG TAB PO SCH (10:42)
[2023-07-27] MEDS: ASPIRIN 81 MG PO SCH ×2 (10:43→19:57)
[2023-07-27] MEDS: CYANOCOBALAMIN 500 MCG TAB PO SCH (10:43)
[2023-07-27] MEDS: CHOLECALCIFEROL 25 MCG (1000 IU) TABLET PO SCH (10:43)
[2023-07-27] MEDS: TAMSULOSIN 0.4 MG CAP.ER.24H PO SCH (10:43)
[2023-07-27] MEDS: HEPARIN SODIUM,PORCINE 5,000 UNIT/ML 1 ML VIAL SQ SCH ×3 (10:43→22:56)
[2023-07-27] MEDS ORDERED: TOLVAPTAN 15 MG TABLET PO ONE (11:00)
--- NOTE | 2023-07-27 11:44 | P.PN ---
Subjective Progress Note Date: 07/27/23 A very pleasant 87-year-old male patient has difficulties in hearing The patient was referred to me for an abnormal CAT scan of the chest that showed a focal 5.3 cm area of airspace disease in the right upper lobe and this was initially identified on a chest x-ray that was done on 03/22/2023 and this abnormality was not present back on a previous chest x-ray from 2016. As such, this is a new abnormality. The findings have remained persistent between 03/22/2023 chest x-ray and the CAT scan of the chest that was done on 04/12/2023. The possibilities that were entertained include chronic pneumonias, low-grade adenocarcinoma, lymphoma, etc. There is not a 7 mm lingular nodule and questionable 1.2 cm left basilar nodule. The patient also has some background emphysema, extensive triple-vessel coronary artery calcification, mediastinal lymph node calcification which is highly suggestive of previous TB exposure. 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 In fact, his mother because of complications of TB when he was 7 years old. The patient has checked positive for PPD and he has not received chemoprophylaxis with INH. He has rheumatoid arthritis. Is not taking any form of immunosuppression this point in time. He has worked in coal mines for many years. He has also smoked and he quit smoking 15-20 years ago. The PET/CT was completed on 05/20/2023 and the patient has a right upper lobe mass which is compatible with neoplasm. The mass itself is showing increased uptake with an SUV of 4.42. The same time, there was a superior hilar lymph node measuring SUV of 2.7 and additional lymph node and infrahilar area. Overall, there are 2 lymph nodes seen in the right hilum. I did a lengthy discussion with the son was also present. The patient is insistent biopsy for tissue diagnosis. Despite his age, his overall functionality is adequate. He is interested in establishing a diagnosis. Based on that, I recommended a robotic ion bronchoscopy. No hemoptysis. No other new complaints otherwise for now. He underwent a bronchoscopy without any major issues. He encountered some sore throat. The bronchoscopy was done and the right upper lobe mass was biopsied and the results are consistent with adenocarcinoma. As such, the patient is diagnosed having lung cancer. We discussed the findings. We will going to get a second opinion from oncology regarding treatment options. The patient is not interested in surgery. He is not interested in systemic chemotherapy at this point in time. Surgery on 07/24/2020 3 AM this morning I'm seeing this patient in the intensive care unit for a follow-up. The patient is doing well. He underwent a robotic-assisted thoracoscopic right upper lobectomy along with mediastinal lymph node dissection. He also received intercostal nerve block at 3 different levels. Currently, he is in the intensive care unit, hemodynamically stable on 3 L of oxygen by nasal cannula. The postop chest x- ray was done and reviewed and show some subcutaneous emphysema along the right chest wall and the neck area. I do not appreciate any pneumothorax. The p atient has a right-sided chest tube in place. Output from the chest tube is in order of 200 mL of bloody output and there is some mild air leak. The patient remains on oxygen and is currently on 3 L nasal cannula. No other complaints otherwise for now. The patient is complaining of pain at the surgical 1 sets and currently tramadol when necessary for pain control. He is awake and alert and communicating. On today's evaluation of 07/25/2023, the patient is postop day #1 following a right upper lobe resection. He is complaining of having some shortness of breath. He is currently on oxygen at 6 L nasal cannula. The patient has a right-sided chest tube in place. Total amount of output has been in the order of 250 mL since arrival from the operating room. Output is bloody. I do not appreciate any air leak on today's evaluation. A repeat chest x-ray was done at around 4 AM this morning and it showed a small apical pneumothorax. The right- sided chest tube is in a good location. The patient has a pulse ox of 94%. He is using the incentive spirometer and is pulling approximately 700 mL. He is on IV fluids with normal saline at rate of 50 mL an hour. His sodium level is down to 125, bicarb is at 17, BUN is at 42 with a creatinine of 1.6 and a white cell cause of 12.7 with a hemoglobin of 13.4. Urine output has also been low at 10- 15 mL an hour. On today's evaluation of 07/26/2023, the patient is being seen in follow-up in the intensive care unit. The patient is currently postop day #2 following his right upper lobe resection. the patient is currently on 2 L of oxygen by nasal cannula. Pulse ox 94%. Using the incentive spirometer. A repeat chest x-ray was done today and the patient was found to have a stable right apical pneumothorax in the order of 10-15%. The patient is postop day #2 following a right upper lobectomy and mediastinal lymph node dissection. No active issues with pain. No evidence of air leak and the output from the right-sided chest tube is in order of 200 mL serosanguineous drainage over the past 24 hours. Sodiums of 124, serum bicarb is at 24 and the BUN is at 37 with a creatinine of 1.2. No other the patient was experiencing increased bronchospasm and wheeze yesterday. The patient was given to those of IV Solu-Medrol in his overall respiratory status improved compared to yesterday. He was also given 2 doses of sodium bicarbonate IV and the bicarb deficit is being replaced. The patient's sodium remains low, asymptomatic. IV fluids are currently at KVO.The patient was having a bradycardic rhythm yesterday and this was thought to be junctional bradycardia versus low rates atrial fibrillation. The heart rate is improved and the patient is currently in normal sinus rhythm. Echocardiogram was done and the patient has normal LV function, moderate degree of coronary hypertension, mild aortic stenosis. On today's evaluation of 07/27/2023, the patient is already out of the intensive care unit and the patient is on a medical surgical floor. The patient is postop day #3 following a right upper lobe resection. The right-sided chest tube is removed. There is an air-fluid level in the anterior aspect of the right upper lobe, probably a small loculated hydropneumothorax. Clinically,, the patient is doing well. His sodium level has dropped significantly down to 123. This is a postsurgical SIADH. The patient was given salt tablets of fluid restriction. He is asymptomatic. Nephrology is on the case and the patient is going to receive Samsca. White cell count is 11.2, hemoglobin is 11.8, patient is using the senna spirometer. The patient is currently on 2 L with a pulse ox of 95%. Objective - Vital Signs Vital signs: Vital Signs Temp 97.8 F 07/27/23 08:00 Pulse 86 07/27/23 08:57 Resp 22 07/27/23 08:00 BP 158/74 07/27/23 08:00 Pulse Ox 94 L 07/27/23 08:00 FiO2 95 07/27/23 08:44 Intake & Output 07/26/23 07/27/23 07/27/23 18:59 06:59 18:59 Intake Total 1400 440 Output Total 750 975 Balance 650 -535 Weight 85 kg Intake: Intake, IV Titration 0 Amount Lactated Ringers 1,000 ml 0 @ 0 mls/hr IV .[employer] ONE Rx#:[id number] Oral 1400 440 Output: Chest Tube Drainage 0 Chest Tube Right 0 Drainage 0 Right Chest 0 Urine 150 725 Uretheral (Gibson) 550 Post Void Residual 600 250 Other: Voiding Method Urinal Urinal Urinal # Voids 1 ABP, PAP, CO, CI - Last Documented Arterial Blood Pressure 124/51 - Exam This, the patient is calm and comfortable, currently on 2 L O2 nasal cannula, communicating, he is hard of hearing Head exam was generally normal. There was no scleral icterus or corneal arcus. Mucous membranes were moist. Neck was supple and without jugular venous distension, thyromegaly, or carotid bruits. Carotids were easily palpable bilaterally. There was no adenopathy. Lungs sounds are diminished and the patient has scattered rhonchi heard bilaterally. The patient also has a right-sided chest tube has been removed Cardiac exam revealed the PMI to be normally situated and sized. The rhythm was regular and no extrasystoles were noted during several minutes of auscultation. The first and second heart sounds were normal and physiologic splitting of the second heart sound was noted. There were no murmurs, rubs, clicks, or gallops., The patient has some occasional PACs Abdominal exam revealed normal bowel sounds. The abdomen was soft, non-tender, and without masses, organomegaly, or appreciable enlargement of the abdominal aorta. Examination of the extremities revealed easily palpable radial, femoral and pedal pulses. There was no cyanosis, clubbing or edema. Examination of the skin revealed no evidence of significant rashes, suspicious appearing nevi or other concerning lesions. Neurologically, the patient is awake and alert and the patient does not have any focal neurological deficit. Cranial nerves are essentially intact. - Labs CBC & Chem 7: 07/27/23 07:06 07/27/23 07:06 Labs: Abnormal Lab Results - Last 24 Hours (Table) 07/26/23 07/26/23 07/27/23 Range/Units 03:59 11:00 07:06 WBC 11.2 H (3.8-10.6) k/uL RBC 4.05 L (4.30-5.90) m/uL Hgb 11.8 L (13.0-17.5) gm/dL Hct 35.3 L (39.0-53.0) % Sodium (137-145) mmol/L Chloride (98-107) mmol/L BUN (9-20) mg/dL Glucose (74-99) mg/dL Osmolality 269 L (280-301) mosm/kg Urine Protein Trace H (Negative) Urine Blood Small H (Negative) Urine RBC 10 H (0-5) /hpf 07/27/23 Range/Units 07:06 WBC (3.8-10.6) k/uL RBC (4.30-5.90) m/uL Hgb (13.0-17.5) gm/dL Hct (39.0-53.0) % Sodium 123 L (137-145) mmol/L Chloride 88 L (98-107) mmol/L BUN 34 H (9-20) mg/dL Glucose 102 H (74-99) mg/dL Osmolality (280-301) mosm/kg Urine Protein (Negative) Urine Blood (Negative) Urine RBC (0-5) /hpf Assessment and Plan Plan: Right upper lobe adenocarcinoma/mass and the patient is post robotic-assisted right upper lobe resection patient is currently postop day #3. The patient's had a 5.3 cm masslike opacity in the right upper lobe mass in the preop PET/CT showed increase uptake in the right suprahilar lymph node with an SUV of 2.7 and additional lymph node and infrahilar area. Chest x-ray shows a persistent stable loculated right apical hydropneumothorax. 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 Not and get metabolic acidosis, improved and the bicarb deficit is better placed Sinus bradycardia versus junctional rhythm, recovered and the echocardiogram showed a preserved LV function with moderate degree of pulmonary hypertension Plan Postop hyponatremia, and the patient is being restricted of fluid intake, the patient was given sodium chloride tablets. Also given a dose of Samsca for his ongoing hyponatremia and postoperative SIADH, the patient was seen by nephrology. right-sided chest tube has been removed and the chest echo shows a loculated right apical hydropneumothorax Continue bronchodilators Pain control with tramadol. Incentive spirometer Daily chest x-ray Salt tablets and fluid restriction Hemodynamically stable Echo was noted and the patient has moderate degree of pulmonary hypertension, preserved LV function and a cardiac rhythm is improved and the patient is currently in normal sinus rhythm without any significant bradycardia Heparin subcu for DVT prophylaxis We'll continue to follow make further recommendations based on his progress
--- NOTE | 2023-07-27 11:49 | P.PN ---
Subjective Patient is seen in follow-up for hyponatremia. Sodium level fairly stable at 123. He is receiving sodium chloride tabs and is also on fluid restriction. Oral intake is fair. No vomiting or diarrhea. Vital signs are stable. General: No acute distress. HEENT: Head exam is unremarkable. On 2 L nasal cannula. LUNGS: No audible rhonchi or wheezes. HEART: Rate and Rhythm are regular. ABDOMEN: Nontender. EXTREMITITES: No edema. Objective - Vital Signs Vital signs: Vital Signs Temp 97.8 F 07/27/23 08:00 Pulse 87 07/27/23 11:23 Resp 22 07/27/23 08:00 BP 158/74 07/27/23 08:00 Pulse Ox 94 L 07/27/23 08:00 FiO2 95 07/27/23 08:44 Intake & Output 07/26/23 07/27/23 07/27/23 18:59 06:59 18:59 Intake Total 1400 440 Output Total 750 975 Balance 650 -535 Weight 85 kg Intake: Intake, IV Titration 0 Amount Lactated Ringers 1,000 ml 0 @ 0 mls/hr IV .[employer] ONE Rx#:[id number] Oral 1400 440 Output: Chest Tube Drainage 0 Chest Tube Right 0 Drainage 0 Right Chest 0 Urine 150 725 Uretheral (Gibson) 550 Post Void Residual 600 250 Other: Voiding Method Urinal Urinal Urinal # Voids 1 ABP, PAP, CO, CI - Last Documented Arterial Blood Pressure 124/51 - Labs CBC & Chem 7: 07/27/23 07:06 07/27/23 07:06 Labs: Abnormal Lab Results - Last 24 Hours (Table) 07/26/23 07/26/23 07/27/23 Range/Units 03:59 11:00 07:06 WBC 11.2 H (3.8-10.6) k/uL RBC 4.05 L (4.30-5.90) m/uL Hgb 11.8 L (13.0-17.5) gm/dL Hct 35.3 L (39.0-53.0) % Sodium (137-145) mmol/L Chloride (98-107) mmol/L BUN (9-20) mg/dL Glucose (74-99) mg/dL Osmolality 269 L (280-301) mosm/kg Urine Protein Trace H (Negative) Urine Blood Small H (Negative) Urine RBC 10 H (0-5) /hpf 07/27/23 Range/Units 07:06 WBC (3.8-10.6) k/uL RBC (4.30-5.90) m/uL Hgb (13.0-17.5) gm/dL Hct (39.0-53.0) % Sodium 123 L (137-145) mmol/L Chloride 88 L (98-107) mmol/L BUN 34 H (9-20) mg/dL Glucose 102 H (74-99) mg/dL Osmolality (280-301) mosm/kg Urine Protein (Negative) Urine Blood (Negative) Urine RBC (0-5) /hpf Assessment and Plan Plan: Assessment: 1. 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 Thiazide diuretic held. Sodium level 123 today. TSH normal. Urine sodium 43 and urine osmolality 535. 2. Acute kidney injury secondary to vasomotor nephropathy from hemodynamic instability. Creatinine peaked at 1.6 this admission and is 1.06 today. 3. Lung cancer status post right upper lobectomy 07/24/2023. 4. Bradycardia. Amlodipine discontinued. Resolved. Cardiology following. Plan: Encourage oral intake. Maintain 1200 mL fluid restriction. Maintain salt tabs for now. Samsca 7.5 mg once today. Repeat sodium level this evening. Add hydralazine.
[2023-07-27] MEDS: hydrALAZINE HCL 25 MG TAB PO SCH ×3 (12:48→19:57)
--- NOTE | 2023-07-27 12:59 | P.PN ---
Subjective HISTORY OF PRESENT ILLNESS: The patient is a pleasant 87-year-old gentleman who sees Dr. Barakat irregularly with a past medical history significant for coronary artery disease with previous stenting with unknown details, the stenting performed more than 20 years ago as well as hypertension and dyslipidemia and peripheral arterial disease. Recently he was diagnosed with a mass involving the right upper lobe and he was admitted to the hospital yesterday where he underwent mobile sales assistant right upper lobectomy by Dr. Baer. We consulted to see the patient because of bradycardia noted when the patient was admitted to the intensive care unit. An EKG was performed and showed what it seems to be AV block. Unfortunately the EKG is unavailable at this point and we are in process of obtaining another one. The patient is bradycardic with heart rate in the 50s and 60s. Pressure has been stable but appeared to be marginally low. The patient is not experiencing any symptoms of dizziness or lightheadedness and no presyncope or syncope and no symptoms of any chest pain or chest discomfort but does have shortness of breath which appeared to be chronic. Currently he is not on any AV vic chastity agents. No TSH or free T4 performed and we are in process of getting one. Also echocardiogram was performed on BR] of getting an echo as well. Blood work revealed hyperkalemia with potassium of 5.2. His kidney function is abnormal as well and currently his renal failure. No history of bradycardia and he was not on any AV vic chastity agents at home. The examination is remarkable for regular rhythm with a systolic murmur at the right upper sternal border and diminished breathing sounds bilaterally. July [id number] The patient was seen and evaluated this morning. The bradycardia has resolved and currently he is in sinus rhythm with heart rate in the 70s. He underwent an echo which revealed normal LV systolic function was mild aortic stenosis and moderate pulmonary hypertension. TSH came in to be unremarkable.. He is doing overall good and he seems to be stable with a normal blood pressure as well as heart rate. At this point I would continue the current medical regimen and continue following up with the patient 07/27/2023 Patient is status post robotic-assisted right upper lobe resection. Patient examined this morning. He is sitting up in the chair. He denies chest pain or pressure. He reports shortness of breath. Telemetry reveals sinus mechanism with no significant bradycardia noted. Vital signs are stable. PHYSICAL EXAM: VITAL SIGNS: Reviewed. GENERAL: Well-developed in no acute distress. NECK: Supple. No JVD or thyromegaly LUNGS: Respirations even and unlabored. Lungs essentially clear to auscultation bilaterally. HEART: Regular rate and rhythm. S1 and S2 heard. No murmur noted. EXTREMITIES: Normal range of motion. No clubbing or cyanosis. Peripheral pulses intact. No lower extremity edema ASSESSMENT: Right upper lobe adenocarcinoma/mass, status post robotic-assisted right upper lobe resection Asymptomatic bradycardia Coronary artery disease Peripheral vascular disease Hyperlipidemia COPD Acute kidney injury Hyponatremia PLAN: Continue current cardiac medications Avoid AV vic blocking agents Continue telemetry monitoring Patient is currently stable from a cardiac standpoint Further recommendations pending patient course Nurse practitioner note has been reviewed by physician. Signing provider agrees with the documented findings, assessment, and plan of care. Objective - Vital Signs Vital signs: Vital Signs Temp 97.7 F 07/27/23 12:00 Pulse 63 07/27/23 12:00 Resp 22 07/27/23 12:00 BP 152/69 07/27/23 12:00 Pulse Ox 96 07/27/23 12:00 FiO2 95 07/27/23 08:44 Intake & Output 07/26/23 07/27/23 07/27/23 18:59 06:59 18:59 Intake Total 1400 440 358 Output Total 750 975 Balance 650 -535 358 Weight 85 kg Intake: Intake, IV Titration 0 Amount Lactated Ringers 1,000 ml 0 @ 0 mls/hr IV .[employer] ONE Rx#:[id number] Oral 1400 440 358 Output: Chest Tube Drainage 0 Chest Tube Right 0 Drainage 0 Right Chest 0 Urine 150 725 Uretheral (Gibson) 550 Post Void Residual 600 250 Other: Voiding Method Urinal Urinal Urinal # Voids 1 ABP, PAP, CO, CI - Last Documented Arterial Blood Pressure 124/51 - Labs CBC & Chem 7: 07/27/23 07:06 07/27/23 07:06 Labs: Abnormal Lab Results - Last 24 Hours (Table) 07/26/23 07/26/23 07/27/23 Range/Units 03:59 11:00 07:06 WBC 11.2 H (3.8-10.6) k/uL RBC 4.05 L (4.30-5.90) m/uL Hgb 11.8 L (13.0-17.5) gm/dL Hct 35.3 L (39.0-53.0) % Sodium (137-145) mmol/L Chloride (98-107) mmol/L BUN (9-20) mg/dL Glucose (74-99) mg/dL Osmolality 269 L (280-301) mosm/kg Urine Protein Trace H (Negative) Urine Blood Small H (Negative) Urine RBC 10 H (0-5) /hpf 07/27/23 Range/Units 07:06 WBC (3.8-10.6) k/uL RBC (4.30-5.90) m/uL Hgb (13.0-17.5) gm/dL Hct (39.0-53.0) % Sodium 123 L (137-145) mmol/L Chloride 88 L (98-107) mmol/L BUN 34 H (9-20) mg/dL Glucose 102 H (74-99) mg/dL Osmolality (280-301) mosm/kg Urine Protein (Negative) Urine Blood (Negative) Urine RBC (0-5) /hpf
--- NOTE | 2023-07-27 15:37 | P.PN ---
Subjective Progress Note Date: 07/27/23 Principal diagnosis: Lung cancer, adenocarcinoma. Past medical history significant for CAD with previous NE and PCI, hypertension, hyperlipidemia, previous tobacco dependence, COPD, peripheral arterial disease, BPH, rheumatoid arthritis. POD #3 bronchoscopy, robotic-assisted thoracoscopic surgery with right upper lobectomy, mediastinal lymph node dissection, intercostal nerve block at 3 levels. Postoperative bradycardia, unexpected, not on AV vic blocking agents. Postoperative acute kidney injury and hyperkalemia, somewhat expected as patient had borderline kidney function and high normal levels of potassium preoperative. The patient was seen and examined in follow-up today 07/27/2023 at his bedside on the third floor cardiac stepdown unit. Currently sitting up to bedside chair, is awake, alert, oriented 3 and is in no acute distress. Currently he is on 2 L nasal cannula with oxygen saturations 94% and he is achieving 1500 mL on his incentive spirometry with encouragement. Remote telemetry showing normal sinus rhythm heart rate 65 BPM. The patient did have a sodium level of 124 yesterday and was given Samsca [address] Reyes. Laboratory results reviewed today and his sodium level is 123 today and his serum osmolality was 269 yesterday. His sodium is being followed by nephrology. His right pleural chest tube was removed yesterday without incident. He denies any complaints of pain or shortness of breath at this time. Chest x-ray was reviewed. Objective - Vital Signs Vital signs: Vital Signs Temp 97.7 F 07/27/23 12:00 Pulse 63 07/27/23 12:00 Resp 22 07/27/23 12:00 BP 152/69 07/27/23 12:00 Pulse Ox 96 07/27/23 12:00 FiO2 95 07/27/23 08:44 Intake & Output 07/26/23 07/27/23 07/27/23 18:59 06:59 18:59 Intake Total 1400 440 958 Output Total 750 975 650 Balance 650 -535 308 Weight 85 kg Intake: Intake, IV Titration 0 Amount Lactated Ringers 1,000 ml 0 @ 0 mls/hr IV .[facility] Rx#:[id number] Oral 1400 440 958 Output: Chest Tube Drainage 0 Chest Tube Right 0 Drainage 0 Right Chest 0 Urine 150 725 650 Uretheral (Gibson) 550 Post Void Residual 600 250 Other: Voiding Method Urinal Urinal Urinal # Voids 1 ABP, PAP, CO, CI - Last Documented Arterial Blood Pressure 124/51 - Exam CONSTITUTIONAL: Appears comfortable, cooperative, no acute distress. RESPIRATORY: Lungs sounds diminished bilaterally, right greater than left. Respirations even, slightly labored. Currently on 2 L nasal cannula with oxygen saturation 94%. Able to achieve 1500 mL on incentive spirometry. Weak cough. CARDIOVASCULAR: S1, S2 present. Regular rate and rhythm, sinus rhythm on telemetry. Palpable peripheral pulses bilaterally. No edema present. No calf pain or tenderness noted. SCDs present. GASTROINTESTINAL: Abdomen soft, nontender, nondistended. Active bowel sounds present 4 quadrants. Tolerating diet. GENITOURINARY: Continues to void, urine output 650 mL output the last 8 hours. INTEGUMENTARY: Skin is warm and dry, no clubbing or cyanosis is present. Right chest thoracoscopic incisions clean, dry and approximated. Dressings clean and dry and in place. NEUROLOGIC: Cranial nerves II through XII intact. No focal deficits. MUSKULOSKELETAL: Able to move all extremities, strength equal bilaterally, gait normal. PSYCHIATRIC: Alert and oriented to person place and time, appropriate affect, intact judgment and insight. - Allied health notes Allied health notes reviewed: nursing - Labs CBC & Chem 7: 07/27/23 07:06 07/27/23 07:06 Labs: Abnormal Lab Results - Last 24 Hours (Table) 07/27/23 07/27/23 Range/Units 07:06 07:06 WBC 11.2 H (3.8-10.6) k/uL RBC 4.05 L (4.30-5.90) m/uL Hgb 11.8 L (13.0-17.5) gm/dL Hct 35.3 L (39.0-53.0) % Sodium 123 L (137-145) mmol/L Chloride 88 L (98-107) mmol/L BUN 34 H (9-20) mg/dL Glucose 102 H (74-99) mg/dL - Imaging and Cardiology Chest x-ray: report reviewed, image reviewed Assessment and Plan Assessment: Lung cancer, adenocarcinoma, status post bronchoscopy, robotic-assisted thoracoscopic surgery with right upper lobectomy, mediastinal lymph node dissection, intercostal nerve block at 3 levels Acute hypoxic respiratory failure, non-anion gap metabolic acidosis, resolved History of CAD with previous NE and PCI History of hypertension Hyperlipidemia, treated Previous tobacco dependence COPD, FEV1 92% of predicted Peripheral arterial disease BPH Rheumatoid arthritis Postoperative bradycardia, resolved Postoperative acute kidney injury and hyperkalemia, resolved 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 Samsca ordered. Patient is also on a fluid restriction and on salt tablet replacement. Wean O2 as tolerated. Encourage incentive spirometry is 10 times every hour while awake. Bronchodilators/steroids per pulmonology Will monitor daily chest x-rays and labs. Increase activity as tolerated, ambulate in hallway. GI/DVT prophylaxis. Pain control with current medication regimen. No Toradol due to JAKUB. Discharge planning is in place. More recommendations to follow based on patient's clinical course. Time with Patient: Greater than 30
[2023-07-27] MEDS: SENNOSIDES-DOCUSATE SODIUM 1 EACH TAB PO SCH (19:57)
[2023-07-27] MEDS: ATORVASTATIN 10 MG TAB PO SCH (19:57)
[2023-07-28] MEDS: ACETAMINOPHEN TAB 325 MG TAB PO PRN ×2 (01:22→10:15)
[2023-07-28] MEDS: IPRATROPIUM-ALBUTEROL 3 ML NEB IH PRN (01:34)
[2023-07-28 02:55] LABS: Glucose,Whole Blood 128 mg/dL (70-110)
[2023-07-28] MEDS ORDERED: methylPREDNISolone SOD SUCCI 125 MG/2 ML VIAL IV STA (02:59)
[2023-07-28] MEDS ORDERED: FUROSEMIDE 10 MG/ML 4 ML VIAL IV STA (02:59)
[2023-07-28 05:05] LABS: African American GFR (CKD) 79 (>60 ml/min/1.73 sqM); Anion Gap 10 mmol/L; Blood Urea Nitrogen 35 mg/dL (9-20); Calcium 8.3 mg/dL (8.4-10.2); Carbon Dioxide 23 mmol/L (22-30); Chloride 92 mmol/L (98-107); Glucose 118 mg/dL (74-99); Magnesium 1.9 mg/dL (1.6-2.3); Non-African American GFR(CKD) 68 (>60 ml/min/1.73 sqM); Potassium 4.7 mmol/L (3.5-5.1); Sodium 125 mmol/L (137-145)
--- NOTE | 2023-07-28 05:21 | XR ---
EXAM: XR Chest, 1 View CLINICAL HISTORY: ITS.REASON XR Reason: SOB TECHNIQUE: Frontal view of the chest. COMPARISON: No relevant prior studies available. FINDINGS: Lungs: Right upper lobe infiltrate. Left lower lobe atelectasis. Heart size and pulmonary vascularity within normal limits. Pleural space: Unremarkable. No pneumothorax. Heart: Unremarkable. No cardiomegaly. Mediastinum: Unremarkable. Bones/joints: Unremarkable. IMPRESSION: Right upper lobe pneumonia
--- NOTE | 2023-07-28 07:19 | P.PN ---
Subjective Progress Note Date: 07/28/23 Principal diagnosis: Bradycardia The patient is a pleasant 87-year-old gentleman who sees Dr. Barakat irregularly with a past medical history significant for coronary artery disease with previous stenting with unknown details, the stenting performed more than 20 years ago as well as hypertension and dyslipidemia and peripheral arterial disease. Recently he was diagnosed with a mass involving the right upper lobe and he was admitted to the hospital yesterday where he underwent guest services assistant right upper lobectomy by Dr. Baer. We consulted to see the patient because of bradycardia noted when the patient was admitted to the intensive care unit. An EKG was performed and showed what it seems to be AV block. Unfortunately the EKG is unavailable at this point and we are in process of obtaining another one. The patient is bradycardic with heart rate in the 50s and 60s. Pressure has been stable but appeared to be marginally low. The patient is not experiencing any symptoms of dizziness or lightheadedness and no presyncope or syncope and no symptoms of any chest pain or chest discomfort but does have shortness of breath which appeared to be chronic. Currently he is not on any AV vic chastity agents. No TSH or free T4 performed and we are in process of getting one. Also echocardiogram was performed on BR] of getting an echo as well. Blood work revealed hyperkalemia with potassium of 5.2. His kidney function is abnormal as well and currently his renal failure. No history of bradycardia and he was not on any AV vic chastity agents at home. The examination is remarkable for regular rhythm with a systolic murmur at the right upper sternal border and diminished breathing sounds bilaterally. July [id number] The patient was seen and evaluated this morning. The bradycardia has resolved and currently he is in sinus rhythm with heart rate in the 70s. He underwent an echo which revealed normal LV systolic function was mild aortic stenosis and moderate pulmonary hypertension. TSH came in to be unremarkable.. He is doing overall good and he seems to be stable with a normal blood pressure as well as heart rate. At this point I would continue the current medical regimen and continue following up with the patient The examination is remarkable for regular rhythm with a systolic murmur and diminished breathing sounds bilaterally 07/28/2023 The patient was seen and evaluated this morning. Apparently was brought back to the intensive care because he didn't have shortness of breath on the floor yesterday. The chest x-ray showed findings consistent with possible pulmonary edema and he was given one dose of Lasix IV. He still slightly hypoxic currently is on oxygen. On examination he does have a lateral expiratory wheezing. Steroids was given in addition to the Lasix IV. Unfortunately his sodium continues to be low we will continue monitor the sodium. His kidney function remains stable. Examination is remarkable for bilateral expiratory wheezing Assessment Status post robotic surgery as described above Asymptomatic bradycardia which has resolved CAD as described above Hyperkalemia Heart failure Plan Continue avoiding any AV vic chastity agents Continue monitor the heart rate and blood pressure Continue monitoring the sodium. Possibly give the patient additional Lasix later on Obtain NT proBNP Follow-up with the patient Objective - Vital Signs Vital signs: Vital Signs Temp 98.0 F 07/27/23 23:55 Pulse 80 07/28/23 06:00 Resp 26 H 07/28/23 06:00 BP 135/65 07/28/23 06:00 Pulse Ox 94 L 07/28/23 06:00 FiO2 50 07/28/23 02:51 Intake & Output 07/27/23 07/28/23 07/28/23 18:59 06:59 18:59 Intake Total 1316 Output Total 950 750 Balance 366 -750 Weight 84.6 kg Intake: Oral 1316 Output: Urine 950 750 Other: Voiding Method Urinal Urinal # Voids 1 0 # Bowel Movements 1 ABP, PAP, CO, CI - Last Documented Arterial Blood Pressure 124/51 - Labs CBC & Chem 7: 07/27/23 07:06 07/28/23 04:25 Labs: Abnormal Lab Results - Last 24 Hours (Table) 07/27/23 07/27/23 07/27/23 Range/Units 07:06 07:06 17:06 WBC 11.2 H (3.8-10.6) k/uL RBC 4.05 L (4.30-5.90) m/uL Hgb 11.8 L (13.0-17.5) gm/dL Hct 35.3 L (39.0-53.0) % Sodium 123 L 126 L (137-145) mmol/L Chloride 88 L (98-107) mmol/L BUN 34 H (9-20) mg/dL Glucose 102 H (74-99) mg/dL POC Glucose (mg/dL) (70-110) mg/dL Calcium (8.4-10.2) mg/dL 07/28/23 07/28/23 Range/Units 02:53 04:25 WBC (3.8-10.6) k/uL RBC (4.30-5.90) m/uL Hgb (13.0-17.5) gm/dL Hct (39.0-53.0) % Sodium 125 L (137-145) mmol/L Chloride 92 L (98-107) mmol/L BUN 35 H (9-20) mg/dL Glucose 118 H (74-99) mg/dL POC Glucose (mg/dL) 128 H (70-110) mg/dL Calcium 8.3 L (8.4-10.2) mg/dL
--- NOTE | 2023-07-28 07:42 | XR ---
EXAMINATION TYPE: XR chest 1V portable DATE OF EXAM: 07/28/2023 HISTORY: Shortness of breath. COMPARISON: 07/28/2023 TECHNIQUE: Single view of the chest is submitted. FINDINGS: Demonstrated are scattered senescent parenchymal change. Persistent patchy infiltrate right perihilar and right suprahilar regions. Diminished right sided angie g volume. Mild hyperinflation of the left lung is noted. The heart is stable. Hilar and mediastinal structures are within normal limits. Degenerative changes are seen of the dorsal spine. IMPRESSION: 1. Persistent right perihilar and right suprahilar opacity which may reflect infiltrate. Underlying mass is not excluded.
[2023-07-28 08:25] LABS: Basophils % (A) 0 %; Eosinophils % (A) 0 %; HCT 36.9 % (39.0-53.0); HGB 12.3 gm/dL (13.0-17.5); Lymphocytes # (A) 0.5 k/uL (1.0-4.8); Lymphocytes % (A) 4 %; MCH 29.2 pg (25.0-35.0); MCHC 33.5 g/dL (31.0-37.0); MCV 87.2 fL (80.0-100.0); Mean Platelet Volume 8.4; Monocytes # (A) 0.6 k/uL (0-1.0); Monocytes % (A) 5 %; Neutrophils # (A) 10.2 k/uL (1.3-7.7); Neutrophils % (A) 91 %; Platelet Count 319 k/uL (150-450); RBC 4.23 m/uL (4.30-5.90); RDW 12.8 % (11.5-15.5); WBC 11.3 k/uL (3.8-10.6)
--- NOTE | 2023-07-28 08:32 | P.PCN ---
Date of Procedure: 07/28/23 Preoperative Diagnosis: Septic shock Postoperative Diagnosis: Septic shock Procedure(s) Performed: Intubation Anesthesia: MAC Surgeon: Amara Reyes Estimated Blood Loss (ml): 0 Pathology: none sent Condition: critical Disposition: ICU Operative Findings: Indication: Respiratory compromise. A time-out was completed verifying correct patient, procedure, site, positioning, and implant(s) or special equipment if applicable. The patient was positioned appropriately and a #8 endotracheal tube was placed under direct laryngoscopy. The tube was anchored at 22 cm at the teeth. Correct placement was confirmed by presence of bilateral breath sounds without air sounds in the abdomen on auscultation. An end-tidal CO2 monitor was also used to confirm tracheal placement of the ET tube. A chest x-ray was ordered to assess for pneumothorax and verify endotracheal tu be placement. The patient tolerated the procedure well and there were no complications.
[2023-07-28] MEDS: FORMOTEROL FUMARATE 20 MCG/2 ML NEBU INHALATION SCH ×2 (09:28→19:48)
[2023-07-28] MEDS: IPRATROPIUM-ALBUTEROL 3 ML NEB IH SCH ×4 (09:28→19:48)
--- NOTE | 2023-07-28 10:08 | P.PN ---
Subjective Progress Note Date: 07/28/23 A very pleasant 87-year-old male patient has difficulties in hearing The patient was referred to me for an abnormal CAT scan of the chest that showed a focal 5.3 cm area of airspace disease in the right upper lobe and this was initially identified on a chest x-ray that was done on 03/22/2023 and this abnormality was not present back on a previous chest x-ray from 2016. As such, this is a new abnormality. The findings have remained persistent between 03/22/2023 chest x-ray and the CAT scan of the chest that was done on 04/12/2023. The possibilities that were entertained include chronic pneumonias, low-grade adenocarcinoma, lymphoma, etc. There is not a 7 mm lingular nodule and questionable 1.2 cm left basilar nodule. The patient also has some background emphysema, extensive triple-vessel coronary artery calcification, mediastinal lymph node calcification which is highly suggestive of previous TB exposure. 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 In fact, his mother because of complications of TB when he was 7 years old. The patient has checked positive for PPD and he has not received chemoprophylaxis with INH. He has rheumatoid arthritis. Is not taking any form of immunosuppression this point in time. He has worked in coal mines for many years. He has also smoked and he quit smoking 15-20 years ago. The PET/CT was completed on 05/20/2023 and the patient has a right upper lobe mass which is compatible with neoplasm. The mass itself is showing increased uptake with an SUV of 4.42. The same time, there was a superior hilar lymph node measuring SUV of 2.7 and additional lymph node and infrahilar area. Overall, there are 2 lymph nodes seen in the right hilum. I did a lengthy discussion with the son was also present. The patient is insistent biopsy for tissue diagnosis. Despite his age, his overall functionality is adequate. He is interested in establishing a diagnosis. Based on that, I recommended a robotic ion bronchoscopy. No hemoptysis. No other new complaints otherwise for now. He underwent a bronchoscopy without any major issues. He encountered some sore throat. The bronchoscopy was done and the right upper lobe mass was biopsied and the results are consistent with adenocarcinoma. As such, the patient is diagnosed having lung cancer. We discussed the findings. We will going to get a second opinion from oncology regarding treatment options. The patient is not interested in surgery. He is not interested in systemic chemotherapy at this point in time. Surgery on 07/24/2020 3 AM this morning I'm seeing this patient in the intensive care unit for a follow-up. The patient is doing well. He underwent a robotic-assisted thoracoscopic right upper lobectomy along with mediastinal lymph node dissection. He also received intercostal nerve block at 3 different levels. Currently, he is in the intensive care unit, hemodynamically stable on 3 L of oxygen by nasal cannula. The postop chest x- ray was done and reviewed and show some subcutaneous emphysema along the right chest wall and the neck area. I do not appreciate any pneumothorax. The p atient has a right-sided chest tube in place. Output from the chest tube is in order of 200 mL of bloody output and there is some mild air leak. The patient remains on oxygen and is currently on 3 L nasal cannula. No other complaints otherwise for now. The patient is complaining of pain at the surgical 1 sets and currently tramadol when necessary for pain control. He is awake and alert and communicating. On today's evaluation of 07/25/2023, the patient is postop day #1 following a right upper lobe resection. He is complaining of having some shortness of breath. He is currently on oxygen at 6 L nasal cannula. The patient has a right-sided chest tube in place. Total amount of output has been in the order of 250 mL since arrival from the operating room. Output is bloody. I do not appreciate any air leak on today's evaluation. A repeat chest x-ray was done at around 4 AM this morning and it showed a small apical pneumothorax. The right- sided chest tube is in a good location. The patient has a pulse ox of 94%. He is using the incentive spirometer and is pulling approximately 700 mL. He is on IV fluids with normal saline at rate of 50 mL an hour. His sodium level is down to 125, bicarb is at 17, BUN is at 42 with a creatinine of 1.6 and a white cell cause of 12.7 with a hemoglobin of 13.4. Urine output has also been low at 10- 15 mL an hour. On today's evaluation of 07/26/2023, the patient is being seen in follow-up in the intensive care unit. The patient is currently postop day #2 following his right upper lobe resection. the patient is currently on 2 L of oxygen by nasal cannula. Pulse ox 94%. Using the incentive spirometer. A repeat chest x-ray was done today and the patient was found to have a stable right apical pneumothorax in the order of 10-15%. The patient is postop day #2 following a right upper lobectomy and mediastinal lymph node dissection. No active issues with pain. No evidence of air leak and the output from the right-sided chest tube is in order of 200 mL serosanguineous drainage over the past 24 hours. Sodiums of 124, serum bicarb is at 24 and the BUN is at 37 with a creatinine of 1.2. No other the patient was experiencing increased bronchospasm and wheeze yesterday. The patient was given to those of IV Solu-Medrol in his overall respiratory status improved compared to yesterday. He was also given 2 doses of sodium bicarbonate IV and the bicarb deficit is being replaced. The patient's sodium remains low, asymptomatic. IV fluids are currently at KVO.The patient was having a bradycardic rhythm yesterday and this was thought to be junctional bradycardia versus low rates atrial fibrillation. The heart rate is improved and the patient is currently in normal sinus rhythm. Echocardiogram was done and the patient has normal LV function, moderate degree of coronary hypertension, mild aortic stenosis. On today's evaluation of 07/27/2023, the patient is already out of the intensive care unit and the patient is on a medical surgical floor. The patient is postop day #3 following a right upper lobe resection. The right-sided chest tube is removed. There is an air-fluid level in the anterior aspect of the right upper lobe, probably a small loculated hydropneumothorax. Clinically,, the patient is doing well. His sodium level has dropped significantly down to 123. This is a postsurgical SIADH. The patient was given salt tablets of fluid restriction. He is asymptomatic. Nephrology is on the case and the patient is going to receive Samsca. White cell count is 11.2, hemoglobin is 11.8, patient is using the senna spirometer. The patient is currently on 2 L with a pulse ox of 95%. Today's evaluation of 07/28/2023, the patient is back to the intensive care unit. Overnight, he acutely became short of breath. The chest x-ray was done that showed no evidence of any pneumothorax. The patient was bronchus spastic and wheezy. The patient was given Solu-Medrol. The patient was also given a do se of Lasix 20 mg IV. He produced good urine output. He was normal to the intensive care unit. He was placed on 15 L of oxygen nasal cannula initially and he was gradually weaned off and is currently back on 2 L. Is much more comfortable at this point in time. He is not using it has somewhat of breathing. His abdomen is soft. No chest pain. No altered mentation. White cell count is 11.3 with a hemoglobin 12.3, sodium is at 125 with a BUN of 35 and a creatinine of 1.0. In regards to his hyponatremia, the patient was given a dose of Samsca 7.5 mg by mouth 1. Sodium level is stable for now. Objective - Vital Signs Vital signs: Vital Signs Temp 98.0 F 07/27/23 23:55 Pulse 78 07/28/23 09:45 Resp 16 07/28/23 09:45 BP 150/92 07/28/23 07:00 Pulse Ox 94 L 07/28/23 09:28 FiO2 50 07/28/23 02:51 Intake & Output 07/27/23 07/28/23 07/28/23 18:59 06:59 18:59 Intake Total 1316 Output Total 950 750 Balance 366 -750 Weight 84.6 kg Intake: Oral 1316 Output: Urine 950 750 Other: Voiding Method Urinal Urinal Urinal # Voids 1 0 0 # Bowel Movements 1 ABP, PAP, CO, CI - Last Documented Arterial Blood Pressure 124/51 - Exam This, the patient is calm and comfortable, currently on 2 L O2 nasal cannula, communicating, he is hard of hearing Head exam was generally normal. There was no scleral icterus or corneal arcus. Mucous membranes were moist. Neck was supple and without jugular venous distension, thyromegaly, or carotid bruits. Carotids were easily palpable bilaterally. There was no adenopathy. Lungs sounds are diminished and the patient has scattered rhonchi heard bilaterally. The patient also has a right-sided chest tube has been removed Cardiac exam revealed the PMI to be normally situated and sized. The rhythm was regular and no extrasystoles were noted during several minutes of auscultation. The first and second heart sounds were normal and physiologic splitting of the second heart sound was noted. There were no murmurs, rubs, clicks, or gallops., The patient has some occasional PACs Abdominal exam revealed normal bowel sounds. The abdomen was soft, non-tender, and without masses, organomegaly, or appreciable enlargement of the abdominal aorta. Examination of the extremities revealed easily palpable radial, femoral and pedal pulses. There was no cyanosis, clubbing or edema. Examination of the skin revealed no evidence of significant rashes, suspicious appearing nevi or other concerning lesions. Neurologically, the patient is awake and alert and the patient does not have any focal neurological deficit. Cranial nerves are essentially intact. - Labs CBC & Chem 7: 07/28/23 07:16 07/28/23 04:25 Labs: Abnormal Lab Results - Last 24 Hours (Table) 07/27/23 07/28/23 07/28/23 Range/Units 17:06 02:53 04:25 WBC (3.8-10.6) k/uL RBC (4.30-5.90) m/uL Hgb (13.0-17.5) gm/dL Hct (39.0-53.0) % Neutrophils # (1.3-7.7) k/uL Lymphocytes # (1.0-4.8) k/uL Sodium 126 L 125 L (137-145) mmol/L Chloride 92 L (98-107) mmol/L BUN 35 H (9-20) mg/dL Glucose 118 H (74-99) mg/dL POC Glucose (mg/dL) 128 H (70-110) mg/dL Calcium 8.3 L (8.4-10.2) mg/dL 07/28/23 Range/Units 07:16 WBC 11.3 H (3.8-10.6) k/uL RBC 4.23 L (4.30-5.90) m/uL Hgb 12.3 L (13.0-17.5) gm/dL Hct 36.9 L (39.0-53.0) % Neutrophils # 10.2 H (1.3-7.7) k/uL Lymphocytes # 0.5 L (1.0-4.8) k/uL Sodium (137-145) mmol/L Chloride (98-107) mmol/L BUN (9-20) mg/dL Glucose (74-99) mg/dL POC Glucose (mg/dL) (70-110) mg/dL Calcium (8.4-10.2) mg/dL Assessment and Plan Plan: Right upper lobe adenocarcinoma/mass and the patient is post robotic-assisted right upper lobe resection patient is currently postop day #4. The patient's had a 5.3 cm masslike opacity in the right upper lobe mass in the preop PET/CT showed increase uptake in the right suprahilar lymph node with an SUV of 2.7 and additional lymph node and infrahilar area. The surgical pathology was consisten t with invasive pulmonary adenocarcinoma and the mediastinal lymph nodes were all negative. The patient was given stage IIB N0 M0 disease based on the TNM, AJCC 8 edition. Acute shortness of breath and the patient got chest and back to the intensive care unit. Bronchospastic and wheezy and there may be a component of COPD exacerbation. 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 Not and get metabolic acidosis, improved and the bicarb deficit is better placed Sinus bradycardia versus junctional rhythm, recovered and the echocardiogram showed a preserved LV function with moderate degree of pulmonary hypertension Plan Start the patient on Solu-Medrol 40 mg every 8 hours Continue [facility] Monitor sodium level given a dose of Samsca 7.5 mg 1 for his ongoing hyponatremia and postoperative SIADH, the patient was seen by nephrology. right-sided chest tube has been removed and the chest echo shows a loculated rig ht apical hydropneumothorax Continue bronchodilators Pain control with tramadol. Incentive spirometer Daily chest x-ray Salt tablets and fluid restriction Hemodynamically stable Echo was noted and the patient has moderate degree of pulmonary hypertension, preserved LV function and a cardiac rhythm is improved and the patient is currently in normal sinus rhythm without any significant bradycardia Heparin subcu for DVT prophylaxis We'll continue to follow make further recommendations based on his progress
[2023-07-28] MEDS: TAMSULOSIN 0.4 MG CAP.ER.24H PO SCH (10:16)
[2023-07-28] MEDS: hydrALAZINE HCL 25 MG TAB PO SCH ×3 (10:16→20:08)
[2023-07-28] MEDS: HEPARIN SODIUM,PORCINE 5,000 UNIT/ML 1 ML VIAL SQ SCH ×2 (10:16→16:11)
[2023-07-28] MEDS: CHOLECALCIFEROL 25 MCG (1000 IU) TABLET PO SCH (10:16)
[2023-07-28] MEDS: CYANOCOBALAMIN 500 MCG TAB PO SCH (10:16)
[2023-07-28] MEDS: ASPIRIN 81 MG PO SCH ×2 (10:16→20:09)
[2023-07-28] MEDS: LOSARTAN 50 MG TAB PO SCH (10:16)
[2023-07-28] MEDS: PANTOPRAZOLE 40 MG TABLET PO SCH (10:17)
[2023-07-28] MEDS: MULTIVITAMINS, THERA 1 EACH TAB PO SCH (10:17)
[2023-07-28] MEDS: SODIUM CHLORIDE TAB 1 GM TAB PO SCH ×2 (10:18→20:09)
--- NOTE | 2023-07-28 11:17 | P.PN ---
Subjective Progress Note Date: 07/28/23 Principal diagnosis: Lung cancer, adenocarcinoma. Past medical history significant for CAD with previous [place] and PCI, hypertension, hyperlipidemia, previous tobacco dependence, COPD, peripheral arterial disease, BPH, rheumatoid arthritis. POD #4 bronchoscopy, robotic-assisted thoracoscopic surgery with right upper lobectomy, mediastinal lymph node dissection, intercostal nerve block at 3 levels. Postoperative bradycardia, unexpected, not on AV vic blocking agents. Postoperative acute kidney injury and hyperkalemia, somewhat expected as patient had borderline kidney function and high normal levels of potassium preoperative. Hyponatremia secondary to SIADH from underlying malignancy. The patient was seen and examined in follow-up today 07/28/2023 at his bedside in the intensive care unit. The patient was transferred to the intensive care unit last evening due to some complaints of increased shortness of breath. The patient is currently sitting up in his bed, is awake, alert, oriented 3 and is in no acute apparent distress. The patient denies any complaints of pain, although continues to complain of some shortness of breath with tight wheezes. Oxygen saturation are 94% on 3 L nasal cannula and he is achieving 750 mL on his incentive spirometry with encouragement. The patient was given a dose of Lasix 20 mg IV 1 last evening with good diuresis. Urine output in the last 8 hours was 1000 mL. Laboratory results this morning reviewed, his sodium is 125 today, and he was given a dose of Juan Kareem 7.5 mg by mouth 1 yesterday ordered by nephrology. The patient reports since being transferred to the intensive care unit his breathing has improved. Chest x-ray was reviewed. Objective - Vital Signs Vital signs: Vital Signs Temp 98.2 F 07/28/23 08:00 Pulse 82 07/28/23 10:00 Resp 26 H 07/28/23 10:00 BP 126/94 07/28/23 10:00 Pulse Ox 89 L 07/28/23 10:00 FiO2 50 07/28/23 02:51 Intake & Output 07/27/23 07/28/23 07/28/23 18:59 06:59 18:59 Intake Total 1316 Output Total 275 522 3818 Balance 366 750 -1000 Weight 84.6 kg Intake: Oral 1316 Output: Urine 817 162 6094 Other: Voiding Method Urinal Urinal Urinal # Voids 1 0 0 # Bowel Movements 1 ABP, PAP, CO, CI - Last Documented Arterial Blood Pressure 124/51 - Exam CONSTITUTIONAL: Appears comfortable, cooperative, no acute distress. RESPIRATORY: Lungs sounds diminished bilaterally, right greater than left, scattered tight wheezes throughout. Respirations are symmetrical, slightly labored. Currently on 3 L nasal cannula with oxygen saturation 94%. Able to achieve 750 mL on incentive spirometry. Weak cough. CARDIOVASCULAR: S1, S2 present. Regular rate and rhythm, sinus rhythm on telemetry. Palpable peripheral pulses bilaterally. No edema present. No calf pain or tenderness noted. SCDs present. GASTROINTESTINAL: Abdomen soft, nontender, nondistended. Active bowel sounds present 4 quadrants. Tolerating diet. GENITOURINARY: Continues to void, urine output 1000 mL output the last 8 hours. INTEGUMENTARY: Skin is warm and dry, no clubbing or cyanosis is present. Right chest thoracoscopic incisions clean, dry and approximated. Dressings clean and dry and in place. NEUROLOGIC: Cranial nerves II through XII intact. No focal deficits. MUSKULOSKELETAL: Able to move all extremities, strength equal bilaterally, gait normal. PSYCHIATRIC: Alert and oriented to person place and time, appropriate affect, intact judgment and insight. - Allied health notes Allied health notes reviewed: nursing - Labs CBC & Chem 7: 07/28/23 07:16 07/28/23 04:25 Labs: Abnormal Lab Results - Last 24 Hours (Table) 07/27/23 07/28/23 07/28/23 Range/Units 17:06 02:53 04:25 WBC (3.8-10.6) k/uL RBC (4.30-5.90) m/uL Hgb (13.0-17.5) gm/dL Hct (39.0-53.0) % Neutrophils # (1.3-7.7) k/uL Lymphocytes # (1.0-4.8) k/uL Sodium 126 L 125 L (137-145) mmol/L Chloride 92 L (98-107) mmol/L BUN 35 H (9-20) mg/dL Glucose 118 H (74-99) mg/dL POC Glucose (mg/dL) 128 H (70-110) mg/dL Calcium 8.3 L (8.4-10.2) mg/dL 07/28/23 Range/Units 07:16 WBC 11.3 H (3.8-10.6) k/uL RBC 4.23 L (4.30-5.90) m/uL Hgb 12.3 L (13.0-17.5) gm/dL Hct 36.9 L (39.0-53.0) % Neutrophils # 10.2 H (1.3-7.7) k/uL Lymphocytes # 0.5 L (1.0-4.8) k/uL Sodium (137-145) mmol/L Chloride (98-107) mmol/L BUN (9-20) mg/dL Glucose (74-99) mg/dL POC Glucose (mg/dL) (70-110) mg/dL Calcium (8.4-10.2) mg/dL - Imaging and Cardiology Chest x-ray: report reviewed, image reviewed Assessment and Plan Assessment: Lung cancer, adenocarcinoma, status post bronchoscopy, robotic-assisted thoracoscopic surgery with right upper lobectomy, mediastinal lymph node dissection, intercostal nerve block at 3 levels Acute hypoxic respiratory failure, non-anion gap metabolic acidosis, resolved History of CAD with previous [place] and PCI History of hypertension Hyperlipidemia, treated Previous tobacco dependence COPD, FEV1 92% of predicted Peripheral arterial disease BPH Rheumatoid arthritis Postoperative bradycardia, resolved Postoperative acute kidney injury and hyperkalemia, resolved Asymptomatic hyponatremia due to postoperative SIADH secondary to malignancy Plan: Hyponatremia management per nephrology's recommendation. Samsca ordered yesterday 07/27/2023. Continue fluid restriction and on salt tablet replacement. Wean O2 as tolerated. Encourage incentive spirometry is 10 times every hour while awake. Bronchodilators/steroids per pulmonology Will monitor daily chest x-rays and labs. Increase activity as tolerated, ambulate in hallway. Needs much encouragement. GI/DVT prophylaxis. Pain control with current medication regimen. No Toradol due to JAKUB. Patient started on Solu-Medrol by pulmonary/critical care medicine. Start Mucinex 1200 mg by mouth twice a day. More recommendations to follow based on patient's clinical course. Time with Patient: Greater than 30
--- NOTE | 2023-07-28 11:30 | P.PN ---
Subjective Patient is seen in follow-up for hyponatremia. Sodium level fairly better at 125 today. He is receiving sodium chloride tabs and is also on fluid restriction. Received a dose of Samsca yesterday. Oral intake is poor. No vomiting or diarrhea. Became short of breath last night and was transferred back to the ICU. Vital signs are stable. General: No acute distress. HEENT: Head exam is unremarkable. On 3 L nasal cannula. LUNGS: No audible rhonchi or wheezes. HEART: Rate and Rhythm are regular. ABDOMEN: Nontender. EXTREMITITES: No edema. Objective - Vital Signs Vital signs: Vital Signs Temp 98.2 F 07/28/23 08:00 Pulse 82 07/28/23 10:00 Resp 26 H 07/28/23 10:00 BP 126/94 07/28/23 10:00 Pulse Ox 89 L 07/28/23 10:00 FiO2 50 07/28/23 02:51 Intake & Output 07/27/23 07/28/23 07/28/23 18:59 06:59 18:59 Intake Total 1316 Output Total 190 815 3213 Balance 366 -750 -1000 Weight 84.6 kg Intake: Oral 1316 Output: Urine 120 100 6092 Other: Voiding Method Urinal Urinal Urinal # Voids 1 0 0 # Bowel Movements 1 ABP, PAP, CO, CI - Last Documented Arterial Blood Pressure 124/51 - Labs CBC & Chem 7: 07/28/23 07:16 07/28/23 04:25 Labs: Abnormal Lab Results - Last 24 Hours (Table) 07/27/23 07/28/23 07/28/23 Range/Units 17:06 02:53 04:25 WBC (3.8-10.6) k/uL RBC (4.30-5.90) m/uL Hgb (13.0-17.5) gm/dL Hct (39.0-53.0) % Neutrophils # (1.3-7.7) k/uL Lymphocytes # (1.0-4.8) k/uL Sodium 126 L 125 L (137-145) mmol/L Chloride 92 L (98-107) mmol/L BUN 35 H (9-20) mg/dL Glucose 118 H (74-99) mg/dL POC Glucose (mg/dL) 128 H (70-110) mg/dL Calcium 8.3 L (8.4-10.2) mg/dL 07/28/23 Range/Units 07:16 WBC 11.3 H (3.8-10.6) k/uL RBC 4.23 L (4.30-5.90) m/uL Hgb 12.3 L (13.0-17.5) gm/dL Hct 36.9 L (39.0-53.0) % Neutrophils # 10.2 H (1.3-7.7) k/uL Lymphocytes # 0.5 L (1.0-4.8) k/uL Sodium (137-145) mmol/L Chloride (98-107) mmol/L BUN (9-20) mg/dL Glucose (74-99) mg/dL POC Glucose (mg/dL) (70-110) mg/dL Calcium (8.4-10.2) mg/dL Assessment and Plan Plan: Assessment: 1. 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 Thiazide diuretic held. Sodium level 125 today. TSH normal. Urine sodium 43 and urine osmolality 535. 2. Acute kidney injury secondary to vasomotor nephropathy from hemodynamic instability. Creatinine peaked at 1.6 this admission and is 1.0 today. 3. Lung cancer status post right upper lobectomy 07/24/2023. 4. Bradycardia. Amlodipine discontinued. Resolved. Cardiology following. 5. Acute hypoxic respiratory failure. Plan: Encourage oral intake. Maintain 1200 mL fluid restriction. Maintain salt tabs for now. Samsca 15 mg once today. Repeat labs in the morning.
[2023-07-28] MEDS ORDERED: TOLVAPTAN 15 MG TABLET PO ONE (12:00)
[2023-07-28] MEDS ORDERED: FUROSEMIDE 10 MG/ML 2 ML VIAL IV STA (12:30)
[2023-07-28 15:02] LABS: ABG HCO3 27 mmol/L (21-25); ABG Oxygen Saturation 95.9 % (94-97); ABG PCO2 34 mmHg (35-45); ABG PH 7.51 (7.35-7.45); ABG PO2 73 mmHg (83-108); ABG TCO2 28 mmol/L (19-24); Allen Test Performed? Yes
[2023-07-28] MEDS: methylPREDNISolone SOD SUCCI 40 MG/ML 1 ML VIAL IV SCH (16:11)
[2023-07-28] MEDS: guaiFENesin 600 MG TABLET.ER PO SCH (20:08)
[2023-07-28] MEDS: ATORVASTATIN 10 MG TAB PO SCH (20:09)
[2023-07-28] MEDS: SENNOSIDES-DOCUSATE SODIUM 1 EACH TAB PO SCH (20:09)
[2023-07-29] MEDS: methylPREDNISolone SOD SUCCI 40 MG/ML 1 ML VIAL IV SCH ×3 (00:40→15:21)
[2023-07-29] MEDS: HEPARIN SODIUM,PORCINE 5,000 UNIT/ML 1 ML VIAL SQ SCH ×3 (00:40→15:21)
[2023-07-29 05:53] LABS: Basophils % (A) 0 %; Eosinophils % (A) 0 %; HCT 34.5 % (39.0-53.0); HGB 11.4 gm/dL (13.0-17.5); Lymphocytes # (A) 0.6 k/uL (1.0-4.8); Lymphocytes % (A) 4 %; MCH 29.2 pg (25.0-35.0); MCHC 33.2 g/dL (31.0-37.0); Mean Platelet Volume 7.4; Monocytes # (A) 0.9 k/uL (0-1.0); Monocytes % (A) 6 %; Neutrophils # (A) 13.8 k/uL (1.3-7.7); Neutrophils % (A) 90 %; Platelet Count 317 k/uL (150-450); RBC 3.92 m/uL (4.30-5.90); WBC 15.4 k/uL (3.8-10.6)
[2023-07-29 06:07] LABS: ALT 49 U/L (4-49); AST 128 U/L (17-59); African American GFR (CKD) 83 (>60 ml/min/1.73 sqM); Albumin 2.8 g/dL (3.5-5.0); Alkaline Phosphatase 61 U/L (38-126); Anion Gap 7 mmol/L; Blood Urea Nitrogen 38 mg/dL (9-20); Calcium 8.5 mg/dL (8.4-10.2); Carbon Dioxide 29 mmol/L (22-30); Chloride 94 mmol/L (98-107); Glucose 138 mg/dL (74-99); Non-African American GFR(CKD) 72 (>60 ml/min/1.73 sqM); Potassium 4.1 mmol/L (3.5-5.1); Sodium 130 mmol/L (137-145); Total Bilirubin 1.1 mg/dL (0.2-1.3); Total Protein 5.4 g/dL (6.3-8.2)
--- NOTE | 2023-07-29 08:03 | P.PN ---
Subjective Progress Note Date: 07/29/23 Principal diagnosis: Lung cancer, adenocarcinoma. 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 States his breathing is better although he looks to be a bit dyspneic. He was on 2 L nasal cannula this morning with oxygen saturation in the high 90s, placed down to room air and oxygen saturation in the low to mid 90s. Labs, chest x-ray reviewed. Patient was given IV Lasix yesterday and started on IV Solu-Medrol with reported improvement in his breathing. Also given Samsca as well as sodium chloride tablets and fluid restricted, sodium level improved today. Objective - Vital Signs Vital signs: Vital Signs Temp 98.0 F 07/29/23 04:00 Pulse 79 07/29/23 07:00 Resp 26 H 07/29/23 07:00 BP 148/65 07/29/23 07:00 Pulse Ox 96 07/29/23 07:00 FiO2 50 07/28/23 02:51 Intake & Output 07/28/23 07/29/23 07/29/23 18:59 06:59 18:59 Intake Total 800 100 Output Total 2200 900 Balance -1400 -800 Weight 84.1 kg Intake: Oral 800 100 Output: Urine 2200 900 Other: Voiding Method Urinal External Catheter # Voids 0 # Bowel Movements 1 ABP, PAP, CO, CI - Last Documented Arterial Blood Pressure 124/51 - Exam CONSTITUTIONAL: Appears comfortable, cooperative, no acute distress RESPIRATORY: Lungs sounds diminished bilaterally, faint expiratory wheezes present. Respirations even, slightly labored. Currently on room air with oxygen saturation 93%. Able to achieve 1500 mL on incentive spirometry. Weak cough. CARDIOVASCULAR: S1, S2 present. Regular rate and rhythm, sinus rhythm on telem etry. Palpable peripheral pulses bilaterally. No edema present. No calf pain or tenderness noted. SCDs present. GASTROINTESTINAL: Abdomen soft, nontender, nondistended. Active bowel sounds present 4 quadrants. Tolerating diet. Positive bowel movement yesterday GENITOURINARY: Continues to void, output 3100 mL in the last 24 hours INTEGUMENTARY: Skin is warm and dry NEUROLOGIC: Cranial nerves II through XII intact MUSKULOSKELETAL: Able to move all extremities, strength equal bilaterally PSYCHIATRIC: Alert and oriented to person place and time, appropriate affect, intact judgment and insight - Allied health notes Allied health notes reviewed: nursing - Labs CBC & Chem 7: 07/29/23 04:58 07/29/23 04:58 Labs: Abnormal Lab Results - Last 24 Hours (Table) 07/28/23 07/28/23 07/29/23 Range/Units 07:16 14:59 04:58 WBC 11.3 H 15.4 H (3.8-10.6) k/uL RBC 4.23 L 3.92 L (4.30-5.90) m/uL Hgb 12.3 L 11.4 L (13.0-17.5) gm/dL Hct 36.9 L 34.5 L (39.0-53.0) % Neutrophils # 10.2 H 13.8 H (1.3-7.7) k/uL Lymphocytes # 0.5 L 0.6 L (1.0-4.8) k/uL ABG pH 7.51 H (7.35-7.45) ABG pCO2 34 L (35-45) mmHg ABG pO2 73 L (83-108) mmHg ABG HCO3 27 H (21-25) mmol/L ABG Total CO2 28 H (19-24) mmol/L Sodium (137-145) mmol/L Chloride (98-107) mmol/L BUN (9-20) mg/dL Glucose (74-99) mg/dL AST (17-59) U/L Total Protein (6.3-8.2) g/dL Albumin (3.5-5.0) g/dL 07/29/23 Range/Units 04:58 WBC (3.8-10.6) k/uL RBC (4.30-5.90) m/uL Hgb (13.0-17.5) gm/dL Hct (39.0-53.0) % Neutrophils # (1.3-7.7) k/uL Lymphocytes # (1.0-4.8) k/uL ABG pH (7.35-7.45) ABG pCO2 (35-45) mmHg ABG pO2 (83-108) mmHg ABG HCO3 (21-25) mmol/L ABG Total CO2 (19-24) mmol/L Sodium 130 L (137-145) mmol/L Chloride 94 L (98-107) mmol/L BUN 38 H (9-20) mg/dL Glucose 138 H (74-99) mg/dL AST 128 H (17-59) U/L Total Protein 5.4 L (6.3-8.2) g/dL Albumin 2.8 L (3.5-5.0) g/dL - Imaging and Cardiology Chest x-ray: image reviewed Assessment and Plan Assessment: Lung cancer, adenocarcinoma, status post bronchoscopy, robotic-assisted thoracoscopic surgery with right upper lobectomy, mediastinal lymph node d issection, intercostal nerve block at 3 levels, final pathology consistent with invasive pulmonary adenocarcinoma with acinar and lepidic pattern Acute hypoxic respiratory failure, non-anion gap metabolic acidosis History of CAD with previous MT and PCI History of hypertension Hyperlipidemia, treated Previous tobacco dependence COPD, FEV1 92% of predicted Peripheral arterial disease BPH Rheumatoid arthritis Postoperative bradycardia, resolved Postoperative acute kidney injury and hyperkalemia Hyponatremia secondary to SIADH, 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 Encourage incentive spirometry is 10 times every hour while awake. Bronchodilators/steroids per pulmonology Will monitor daily x-rays and labs. Will give IV lasix 40 mg BID Increase activity as tolerated GI/DVT prophylaxis Pain control with current medication regimen. No Toradol due to JAKUB Continue fluid restriction and salt tablet replacement Keep in ICU for another 24 hours More recommendations to follow
[2023-07-29] MEDS: PANTOPRAZOLE 40 MG TABLET PO SCH (08:44)
[2023-07-29] MEDS: CYANOCOBALAMIN 500 MCG TAB PO SCH (08:45)
[2023-07-29] MEDS: ASPIRIN 81 MG PO SCH ×2 (08:45→20:11)
[2023-07-29] MEDS: SODIUM CHLORIDE TAB 1 GM TAB PO SCH (08:45)
[2023-07-29] MEDS: CHOLECALCIFEROL 25 MCG (1000 IU) TABLET PO SCH (08:45)
[2023-07-29] MEDS: MULTIVITAMINS, THERA 1 EACH TAB PO SCH (08:45)
[2023-07-29] MEDS: guaiFENesin 600 MG TABLET.ER PO SCH ×2 (08:45→20:11)
[2023-07-29] MEDS: TAMSULOSIN 0.4 MG CAP.ER.24H PO SCH (08:45)
[2023-07-29] MEDS: LOSARTAN 50 MG TAB PO SCH (08:59)
[2023-07-29] MEDS: hydrALAZINE HCL 25 MG TAB PO SCH ×3 (08:59→20:26)
[2023-07-29] MEDS: ACETAMINOPHEN TAB 325 MG TAB PO PRN ×2 (09:07→18:04)
[2023-07-29] MEDS: IPRATROPIUM-ALBUTEROL 3 ML NEB IH SCH ×4 (09:28→20:21)
[2023-07-29] MEDS: FORMOTEROL FUMARATE 20 MCG/2 ML NEBU INHALATION SCH ×2 (09:28→20:21)
--- NOTE | 2023-07-29 10:12 | P.PN ---
Subjective Progress Note Date: 07/29/23 A very pleasant 87-year-old male patient has difficulties in hearing The patient was referred to me for an abnormal CAT scan of the chest that showed a focal 5.3 cm area of airspace disease in the right upper lobe and this was initially identified on a chest x-ray that was done on 03/22/2023 and this abnormality was not present back on a previous chest x-ray from 2016. As such, this is a new abnormality. The findings have remained persistent between 03/22/2023 chest x-ray and the CAT scan of the chest that was done on 04/12/2023. The possibilities that were entertained include chronic pneumonias, low-grade adenocarcinoma, lymphoma, etc. There is not a 7 mm lingular nodule and questionable 1.2 cm left basilar nodule. The patient also has some background emphysema, extensive triple-vessel coronary artery calcification, mediastinal lymph node calcification which is highly suggestive of previous TB exposure. 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 In fact, his mother because of complications of TB when he was 7 years old. The patient has checked positive for PPD and he has not received chemoprophylaxis with INH. He has rheumatoid arthritis. Is not taking any form of immunosuppression this point in time. He has worked in coal mines for many years. He has also smoked and he quit smoking 15-20 years ago. The PET/CT was completed on 05/20/2023 and the patient has a right upper lobe mass which is compatible with neoplasm. The mass itself is showing increased uptake with an SUV of 4.42. The same time, there was a superior hilar lymph node measuring SUV of 2.7 and additional lymph node and infrahilar area. Overall, there are 2 lymph nodes seen in the right hilum. I did a lengthy discussion with the son was also present. The patient is insistent biopsy for tissue diagnosis. Despite his age, his overall functionality is adequate. He is interested in establishing a diagnosis. Based on that, I recommended a robotic ion bronchoscopy. No hemoptysis. No other new complaints otherwise for now. He underwent a bronchoscopy without any major issues. He encountered some sore throat. The bronchoscopy was done and the right upper lobe mass was biopsied and the results are consistent with adenocarcinoma. As such, the patient is diagnosed having lung cancer. We discussed the findings. We will going to get a second opinion from oncology regarding treatment options. The patient is not interested in surgery. He is not interested in systemic chemotherapy at this point in time. Surgery on 07/24/2020 3 AM this morning I'm seeing this patient in the intensive care unit for a follow-up. The patient is doing well. He underwent a robotic-assisted thoracoscopic right upper lobectomy along with mediastinal lymph node dissection. He also received intercostal nerve block at 3 different levels. Currently, he is in the intensive care unit, hemodynamically stable on 3 L of oxygen by nasal cannula. The postop chest x- ray was done and reviewed and show some subcutaneous emphysema along the right chest wall and the neck area. I do not appreciate any pneumothorax. The p atient has a right-sided chest tube in place. Output from the chest tube is in order of 200 mL of bloody output and there is some mild air leak. The patient remains on oxygen and is currently on 3 L nasal cannula. No other complaints otherwise for now. The patient is complaining of pain at the surgical 1 sets and currently tramadol when necessary for pain control. He is awake and alert and communicating. On today's evaluation of 07/25/2023, the patient is postop day #1 following a right upper lobe resection. He is complaining of having some shortness of breath. He is currently on oxygen at 6 L nasal cannula. The patient has a right-sided chest tube in place. Total amount of output has been in the order of 250 mL since arrival from the operating room. Output is bloody. I do not appreciate any air leak on today's evaluation. A repeat chest x-ray was done at around 4 AM this morning and it showed a small apical pneumothorax. The right- sided chest tube is in a good location. The patient has a pulse ox of 94%. He is using the incentive spirometer and is pulling approximately 700 mL. He is on IV fluids with normal saline at rate of 50 mL an hour. His sodium level is down to 125, bicarb is at 17, BUN is at 42 with a creatinine of 1.6 and a white cell cause of 12.7 with a hemoglobin of 13.4. Urine output has also been low at 10- 15 mL an hour. On today's evaluation of 07/26/2023, the patient is being seen in follow-up in the intensive care unit. The patient is currently postop day #2 following his right upper lobe resection. the patient is currently on 2 L of oxygen by nasal cannula. Pulse ox 94%. Using the incentive spirometer. A repeat chest x-ray was done today and the patient was found to have a stable right apical pneumothorax in the order of 10-15%. The patient is postop day #2 following a right upper lobectomy and mediastinal lymph node dissection. No active issues with pain. No evidence of air leak and the output from the right-sided chest tube is in order of 200 mL serosanguineous drainage over the past 24 hours. Sodiums of 124, serum bicarb is at 24 and the BUN is at 37 with a creatinine of 1.2. No other the patient was experiencing increased bronchospasm and wheeze yesterday. The patient was given to those of IV Solu-Medrol in his overall respiratory status improved compared to yesterday. He was also given 2 doses of sodium bicarbonate IV and the bicarb deficit is being replaced. The patient's sodium remains low, asymptomatic. IV fluids are currently at KVO.The patient was having a bradycardic rhythm yesterday and this was thought to be junctional bradycardia versus low rates atrial fibrillation. The heart rate is improved and the patient is currently in normal sinus rhythm. Echocardiogram was done and the patient has normal LV function, moderate degree of coronary hypertension, mild aortic stenosis. On today's evaluation of 07/27/2023, the patient is already out of the intensive care unit and the patient is on a medical surgical floor. The patient is postop day #3 following a right upper lobe resection. The right-sided chest tube is removed. There is an air-fluid level in the anterior aspect of the right upper lobe, probably a small loculated hydropneumothorax. Clinically,, the patient is doing well. His sodium level has dropped significantly down to 123. This is a postsurgical SIADH. The patient was given salt tablets of fluid restriction. He is asymptomatic. Nephrology is on the case and the patient is going to receive Samsca. White cell count is 11.2, hemoglobin is 11.8, patient is using the senna spirometer. The patient is currently on 2 L with a pulse ox of 95%. Today's evaluation of 07/28/2023, the patient is back to the intensive care unit. Overnight, he acutely became short of breath. The chest x-ray was done that showed no evidence of any pneumothorax. The patient was bronchus spastic and wheezy. The patient was given Solu-Medrol. The patient was also given a do se of Lasix 20 mg IV. He produced good urine output. He was normal to the intensive care unit. He was placed on 15 L of oxygen nasal cannula initially and he was gradually weaned off and is currently back on 2 L. Is much more comfortable at this point in time. He is not using it has somewhat of breathing. His abdomen is soft. No chest pain. No altered mentation. White cell count is 11.3 with a hemoglobin 12.3, sodium is at 125 with a BUN of 35 and a creatinine of 1.0. In regards to his hyponatremia, the patient was given a dose of Samsca 7.5 mg by mouth 1. Sodium level is stable for now. 07/29/2023, the patient remains on oxygen at 2 L. Less bronchus spastic and wheezing compared to yesterday. The repeat chest x-ray shows a tiny right-sided pneumothorax which is probably in the order of 5-10%. The patient otherwise is feeling well. No specific complaints. Sodium is at 1:30, potassium is at 4.1, BUN is at 38 with a creatinine of 0.9. The white cell count of 15.4 with a hemoglobin of 11.4. He is using the [employer] spirometer. I have him on a combination of bronchodilators with DuoNeb updrafts 4 times a day, he is also on IV Solu-Medrol 40 mg every 8 hours. Tolerating his diet. No nausea or emesis. No issues with pain. Objective - Vital Signs Vital signs: Vital Signs Temp 97.9 F 07/29/23 08:00 Pulse 73 07/29/23 09:28 Resp 17 07/29/23 09:28 BP 138/72 07/29/23 09:00 Pulse Ox 93 L 07/29/23 09:28 FiO2 50 07/28/23 02:51 Intake & Output 07/28/23 07/29/23 07/29/23 18:59 06:59 18:59 Intake Total 800 100 100 Output Total 2200 900 250 Balance -1400 -800 -150 Weight 84.1 kg Intake: Oral 800 100 100 Output: Urine 2200 900 250 Other: Voiding Method Urinal External Catheter External Catheter # Voids 0 # Bowel Movements 1 ABP, PAP, CO, CI - Last Documented Arterial Blood Pressure 124/51 - Exam This, the patient is calm and comfortable, currently on 2 L O2 nasal cannula, communicating, he is hard of hearing Head exam was generally normal. There was no scleral icterus or corneal arcus. Mucous membranes were moist. Neck was supple and without jugular venous distension, thyromegaly, or carotid bruits. Carotids were easily palpable bilaterally. There was no adenopathy. Lungs sounds are diminished and the patient has scattered rhonchi heard bilaterally. The patient also has a right-sided chest tube has been removed Cardiac exam revealed the PMI to be normally situated and sized. The rhythm was regular and no extrasystoles were noted during several minutes of auscultation. The first and second heart sounds were normal and physiologic splitting of the second heart sound was noted. There were no murmurs, rubs, clicks, or gallops., The patient has some occasional PACs Abdominal exam revealed normal bowel sounds. The abdomen was soft, non-tender, and without masses, organomegaly, or appreciable enlargement of the abdominal aorta. Examination of the extremities revealed easily palpable radial, femoral and pedal pulses. There was no cyanosis, clubbing or edema. Examination of the skin revealed no evidence of significant rashes, suspicious appearing nevi or other concerning lesions. Neurologically, the patient is awake and alert and the patient does not have any focal neurological deficit. Cranial nerves are essentially intact. - Labs CBC & Chem 7: 07/29/23 04:58 07/29/23 04:58 Labs: Abnormal Lab Results - Last 24 Hours (Table) 07/28/23 07/29/23 07/29/23 Range/Units 14:59 04:58 04:58 WBC 15.4 H (3.8-10.6) k/uL RBC 3.92 L (4.30-5.90) m/uL Hgb 11.4 L (13.0-17.5) gm/dL Hct 34.5 L (39.0-53.0) % Neutrophils # 13.8 H (1.3-7.7) k/uL Lymphocytes # 0.6 L (1.0-4.8) k/uL ABG pH 7.51 H (7.35-7.45) ABG pCO2 34 L (35-45) mmHg ABG pO2 73 L (83-108) mmHg ABG HCO3 27 H (21-25) mmol/L ABG Total CO2 28 H (19-24) mmol/L Sodium 130 L (137-145) mmol/L Chloride 94 L (98-107) mmol/L BUN 38 H (9-20) mg/dL Glucose 138 H (74-99) mg/dL AST 128 H (17-59) U/L Total Protein 5.4 L (6.3-8.2) g/dL Albumin 2.8 L (3.5-5.0) g/dL Assessment and Plan Plan: Right upper lobe adenocarcinoma/mass and the patient is post robotic-assisted right upper lobe resection patient is currently postop day #4. The patient's had a 5.3 cm masslike opacity in the right upper lobe mass in the preop PET/CT showed increase uptake in the right suprahilar lymph node with an SUV of 2.7 and additional lymph node and infrahilar area. The surgical pathology was cons istent with invasive pulmonary adenocarcinoma and the mediastinal lymph nodes were all negative. The patient was given stage IIB N0 M0 disease based on the TNM, AJCC 8 edition. Acute shortness of breath and the patient got chest and back to the intensive care unit. Bronchospastic and wheezy and there may be a component of COPD exacerbation. 5-10% pneumothorax was seen on the right. The patient is less bronchospastic and wheezy on today's evaluation. Still on 2 L of oxygen by nasal cannula. Acute hypoxic respiratory failure remains on oxygen at 2 L/m nasal cannula weaned down from 15 L down to 2 L Asymptomatic hyponatremia due to postoperative SIADH, sodium level is improved and stabilized. 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 Not and get metabolic acidosis, improved and the bicarb deficit is better placed Sinus bradycardia versus junctional rhythm, recovered and the echocardiogram showed a preserved LV function with moderate degree of pulmonary hypertension Plan We'll continue same treatment Monitor the right-sided pneumothorax Continue Solu-Medrol 40 mg every 8 hours Continue [facility] Monitor sodium level, improved Received Samsca 7.5 mg 1 for his ongoing hyponatremia and postoperative SIADH, the patient was seen by nephrology. The sodium level is improved and is currently up to 130 Lasix per nephrology and cardiothoracic surgery at a dose of 40 mg IV twice a day right-sided chest tube has been removed and the chest echo shows a loculated right apical hydropneumothorax Continue bronchodilators Pain control with tramadol. Incentive spirometer Daily chest x-ray Salt tablets and fluid restriction Hemodynamically stable Echo was noted and the patient has moderate degree of pulmonary hypertension, preserved LV function and a cardiac rhythm is improved and the patient is currently in normal sinus rhythm without any significant bradycardia Heparin subcu for DVT prophylaxis We'll continue to follow make further recommendations based on his progress Keep the patient ICU. He is doing well.
--- NOTE | 2023-07-29 10:39 | P.PN ---
Subjective Patient is seen in follow-up for hyponatremia. Sodium level 130 today. He is receiving sodium chloride tabs and is also on fluid restriction. Also received Samsca. Started on IV Lasix today. Oral intake is improved. No vomiting or diarrhea. Sitting up in bed. Vital signs are stable. General: No acute distress. HEENT: Head exam is unremarkable. On 2 L nasal cannula. LUNGS: No audible rhonchi or wheezes. HEART: Rate and Rhythm are regular. ABDOMEN: Nontender. EXTREMITITES: No edema. Objective - Vital Signs Vital signs: Vital Signs Temp 97.9 F 07/29/23 08:00 Pulse 78 07/29/23 10:20 Resp 16 07/29/23 10:20 BP 155/65 07/29/23 10:20 Pulse Ox 96 07/29/23 10:20 FiO2 50 07/28/23 02:51 Intake & Output 07/28/23 07/29/23 07/29/23 18:59 06:59 18:59 Intake Total 800 100 100 Output Total 2200 900 250 Balance -1400 -800 -150 Weight 84.1 kg Intake: Oral 800 100 100 Output: Urine 2200 900 250 Other: Voiding Method Urinal External Catheter External Catheter # Voids 0 # Bowel Movements 1 ABP, PAP, CO, CI - Last Documented Arterial Blood Pressure 124/51 - Labs CBC & Chem 7: 07/29/23 04:58 07/29/23 04:58 Labs: Abnormal Lab Results - Last 24 Hours (Table) 07/28/23 07/29/23 07/29/23 Range/Units 14:59 04:58 04:58 WBC 15.4 H (3.8-10.6) k/uL RBC 3.92 L (4.30-5.90) m/uL Hgb 11.4 L (13.0-17.5) gm/dL Hct 34.5 L (39.0-53.0) % Neutrophils # 13.8 H (1.3-7.7) k/uL Lymphocytes # 0.6 L (1.0-4.8) k/uL ABG pH 7.51 H (7.35-7.45) ABG pCO2 34 L (35-45) mmHg ABG pO2 73 L (83-108) mmHg ABG HCO3 27 H (21-25) mmol/L ABG Total CO2 28 H (19-24) mmol/L Sodium 130 L (137-145) mmol/L Chloride 94 L (98-107) mmol/L BUN 38 H (9-20) mg/dL Glucose 138 H (74-99) mg/dL AST 128 H (17-59) U/L Total Protein 5.4 L (6.3-8.2) g/dL Albumin 2.8 L (3.5-5.0) g/dL Assessment and Plan Plan: Assessment: 1. 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 Thiaz corwin diuretic held. Sodium level 130 today. TSH normal. Urine sodium 43 and urine osmolality 535. 2. Acute kidney injury secondary to vasomotor nephropathy from hemodynamic instability. Creatinine peaked at 1.6 this admission and is 0.96 today. 3. Lung cancer status post right upper lobectomy 07/24/2023. 4. Bradycardia. Amlodipine discontinued. Resolved. Cardiology following. 5. Acute hypoxic respiratory failure. 6. Benign hypertension. Exacerbated by steroids. Plan: Encourage oral intake. Maintain 1200 mL fluid restriction. Stop salt tabs. IV Lasix started this morning. Repeat labs in the morning.
[2023-07-29] MEDS: POTASSIUM BICARBONATE/CIT AC 20 MEQ TABLET.EFF PO SCH (11:04)
[2023-07-29] MEDS: FUROSEMIDE 10 MG/ML 4 ML VIAL IV SCH ×2 (11:04→20:10)
--- NOTE | 2023-07-29 11:14 | P.PN ---
Subjective HISTORY OF PRESENT ILLNESS: The patient is a pleasant 87-year-old gentleman who sees Dr. Barakat irregularly with a past medical history significant for coronary artery disease with previous stenting with unknown details, the stenting performed more than 20 years ago as well as hypertension and dyslipidemia and peripheral arterial disease. Recently he was diagnosed with a mass involving the right upper lobe and he was admitted to the hospital yesterday where he underwent chef assistant right upper lobectomy by Dr. Baer. We consulted to see the patient because of bradycardia noted when the patient was admitted to the intensive care unit. An EKG was performed and showed what it seems to be AV block. Unfortunately the EKG is unavailable at this point and we are in process of obtaining another one. The patient is bradycardic with heart rate in the 50s and 60s. Pressure has been stable but appeared to be marginally low. The patient is not experiencing any symptoms of dizziness or lightheadedness and no presyncope or syncope and no symptoms of any chest pain or chest discomfort but does have shortness of breath which appeared to be chronic. Currently he is not on any AV vic chastity agents. No TSH or free T4 performed and we are in process of getting one. Also echocardiogram was performed on BR] of getting an echo as well. Blood work revealed hyperkalemia with potassium of 5.2. His kidney function is abnormal as well and currently his renal failure. No history of bradycardia and he was not on any AV vic chastity agents at home. The examination is remarkable for regular rhythm with a systolic murmur at the right upper sternal border and diminished breathing sounds bilaterally. July [id number] The patient was seen and evaluated this morning. The bradycardia has resolved and currently he is in sinus rhythm with heart rate in the 70s. He underwent an echo which revealed normal LV systolic function was mild aortic stenosis and moderate pulmonary hypertension. TSH came in to be unremarkable.. He is doing overall good and he seems to be stable with a normal blood pressure as well as heart rate. At this point I would continue the current medical regimen and continue following up with the patient 07/27/2023 Patient is status post robotic-assisted right upper lobe resection. Patient examined this morning. He is sitting up in the chair. He denies chest pain or pressure. He reports shortness of breath. Telemetry reveals sinus mechanism with no significant bradycardia noted. Vital signs are stable. 07/29/2023 Patient examined this morning at the bedside. Patient denies chest pain or pressure. He continues to have labored breathing this morning. He reports feeling short of breath although improved from yesterday. The patient did receive a 1 time dose of IV Lasix yesterday. Patient's sodium yesterday was 125. Repeat is 130. PHYSICAL EXAM: VITAL SIGNS: Reviewed. GENERAL: Well-developed in no acute distress. NECK: Supple. No JVD or thyromegaly LUNGS: Respirations even and unlabored. Lungs diminished with bilateral rhonchi HEART: Regular rate and rhythm. S1 and S2 heard. No murmur noted. EXTREMITIES: Normal range of motion. No clubbing or cyanosis. Peripheral pulses intact. No lower extremity edema ASSESSMENT: Right upper lobe adenocarcinoma/mass, status post robotic-assisted right upper lobe resection Asymptomatic bradycardia Coronary artery disease Peripheral vascular disease Hyperlipidemia COPD Acute kidney injury Hyponatremia PLAN: Continue current cardiac medications Avoid AV vic blocking agents Continue telemetry monitoring Per Dr. Wood, we will defer management of diuresis to CT surgery. Patient started on IV Lasix this morning. Further recommendations pending patient course Nurse practitioner note has been reviewed by physician. Signing provider agrees with the documented findings, assessment, and plan of care. Objective - Vital Signs Vital signs: Vital Signs Temp 97.9 F 07/29/23 08:00 Pulse 78 07/29/23 10:20 Resp 16 07/29/23 10:20 BP 155/65 07/29/23 10:20 Pulse Ox 96 07/29/23 10:20 FiO2 50 07/28/23 02:51 Intake & Output 07/28/23 07/29/23 07/29/23 18:59 06:59 18:59 Intake Total 800 100 100 Output Total 2200 900 250 Balance -1400 -800 -150 Weight 84.1 kg Intake: Oral 800 100 100 Output: Urine 2200 900 250 Other: Voiding Method Urinal External Catheter External Catheter # Voids 0 # Bowel Movements 1 ABP, PAP, CO, CI - Last Documented Arterial Blood Pressure 124/51 - Labs CBC & Chem 7: 07/29/23 04:58 07/29/23 04:58 Labs: Abnormal Lab Results - Last 24 Hours (Table) 07/28/23 07/29/23 07/29/23 Range/Units 14:59 04:58 04:58 WBC 15.4 H (3.8-10.6) k/uL RBC 3.92 L (4.30-5.90) m/uL Hgb 11.4 L (13.0-17.5) gm/dL Hct 34.5 L (39.0-53.0) % Neutrophils # 13.8 H (1.3-7.7) k/uL Lymphocytes # 0.6 L (1.0-4.8) k/uL ABG pH 7.51 H (7.35-7.45) ABG pCO2 34 L (35-45) mmHg ABG pO2 73 L (83-108) mmHg ABG HCO3 27 H (21-25) mmol/L ABG Total CO2 28 H (19-24) mmol/L Sodium 130 L (137-145) mmol/L Chloride 94 L (98-107) mmol/L BUN 38 H (9-20) mg/dL Glucose 138 H (74-99) mg/dL AST 128 H (17-59) U/L Total Protein 5.4 L (6.3-8.2) g/dL Albumin 2.8 L (3.5-5.0) g/dL
--- NOTE | 2023-07-29 12:01 | XR ---
EXAMINATION TYPE: XR chest 1V portable DATE OF EXAM: 07/29/2023 6:18 AM CLINICAL INDICATION:Male, 87 years old with history of Status post right upper lobectomy; [facility] COMPARISON: Chest x-ray 07/28/2023 and other prior studies. TECHNIQUE: XR chest 1V portable Frontal view of the chest. FINDINGS: Lines/tubes/devices: EKG leads overlie the chest. No indwelling lines are seen. Cardiomediastinum: Cardiac silhouette appears stable with cardiomegaly again noted. Atherosclerotic calcification of the aorta. Stable mediastinal silhouette. Vasculature: Similar mild vascular congestion. Lungs/pleura: A small layering right-sided pneumothorax can be seen up to 9.4 mm in depth. Mild blunting of the rig ht costophrenic angle again suggests stable small pleural effusion. Mild asymmetric elevation of the right hemidiaphragm. Mild bibasilar atelectasis. No new or worsening infiltrate is seen. Bones/soft tissues: Bony thorax appears grossly unchanged as seen. Small amount of soft tissue emphysema in the right sup raclavicular region, minimally increased from priors. IMPRESSION: 1. Small layering right-sided pneumothorax. 2. Stable small right pleural effusion. 3. Mild asymmetric elevation of the right hemidiaphragm. Mild bibasilar atelectasis. No new or worse flavio infiltrate is seen. 4. Small amount of soft tissue emphysema in the right supraclavicular region, minimally increased fr om priors.
[2023-07-29] MEDS: ATORVASTATIN 10 MG TAB PO SCH (20:11)
[2023-07-29] MEDS: SENNOSIDES-DOCUSATE SODIUM 1 EACH TAB PO SCH (20:11)
[2023-07-30] MEDS: HEPARIN SODIUM,PORCINE 5,000 UNIT/ML 1 ML VIAL SQ SCH ×4 (00:41→23:25)
[2023-07-30] MEDS: methylPREDNISolone SOD SUCCI 40 MG/ML 1 ML VIAL IV SCH ×4 (00:41→23:25)
[2023-07-30] MEDS: ONDANSETRON 4 MG/2 ML VIAL IVP PRN (04:25)
[2023-07-30 05:24] LABS: HCT 34.9 % (39.0-53.0); MCH 30.1 pg (25.0-35.0); MCHC 34.2 g/dL (31.0-37.0); MCV 88.1 fL (80.0-100.0); Mean Platelet Volume 7.2; Platelet Count 352 k/uL (150-450); RBC 3.97 m/uL (4.30-5.90); WBC 16.2 k/uL (3.8-10.6)
[2023-07-30 05:37] LABS: African American GFR (CKD) 73 (>60 ml/min/1.73 sqM); Anion Gap 8 mmol/L; Blood Urea Nitrogen 52 mg/dL (9-20); Calcium 8.5 mg/dL (8.4-10.2); Carbon Dioxide 28 mmol/L (22-30); Chloride 95 mmol/L (98-107); Glucose 143 mg/dL (74-99); Magnesium 2.2 mg/dL (1.6-2.3); Non-African American GFR(CKD) 63 (>60 ml/min/1.73 sqM); Potassium 4.1 mmol/L (3.5-5.1); Sodium 131 mmol/L (137-145)
[2023-07-30] MEDS ORDERED: CALCIUM CARBONATE 500 MG CHEWABLE PO PRN (07:23)
--- NOTE | 2023-07-30 07:33 | XR ---
EXAM: XR chest 1V portable CLINICAL INDICATION:Male, 87 years old with history of post lobectomy; [facility] COMPARISON: 07/29/2023 and before TECHNIQUE: Chest single view. FINDINGS: Lines/tubes/devices: EKG leads and other extrinsic structures overlie the chest. No indwelling lines are seen. Cardiomediastinum: Cardiac silhouette appears stable with cardiomegaly again noted. Atherosclerotic calcification of the aorta. Stable mediastinal silhouette. Vasculature: Similar mild vascular congestion. Lungs/pleura: A small layering right-sided pneumothorax can be seen up to 8.4 mm in depth, essentially stable. Stab le small right pleural effusion. Mild asymmetric elevation of the right hemidiaphragm. Mild bibasilar atelectasis. No new or worsening infiltrate is seen. Bones/soft tissues: Bony thorax appears grossly unchanged as seen. Stable small amount of soft tissue emphysema in the ri ght supraclavicular region. IMPRESSION: 1. Stable small right-sided pneumothorax. 2. Stable small right pleural effusion. 3. Mild asymmetric elevation of the right hemidiaphragm. Mild bibasilar atelectasis. 4. Stable small amount of soft tissue emphysema in the right supraclavicular region.
--- NOTE | 2023-07-30 07:36 | P.PN ---
Subjective Progress Note Date: 07/30/23 Principal diagnosis: Lung cancer, adenocarcinoma. 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 States his breathing is better although he still looks to be a bit dyspneic. Currently on room air, sats drop into the high 80s with activity but he does recover back into the mid 90s. Labs, chest x-ray reviewed. Patient continues on IV Lasix and IV Solu- Medrol. Does complain of some heartburn which he gets at home. Objective - Vital Signs Vital signs: Vital Signs Temp 98.2 F 07/30/23 04:00 Pulse 76 07/30/23 07:00 Resp 23 07/30/23 07:00 BP 155/68 07/30/23 07:00 Pulse Ox 92 L 07/30/23 07:00 FiO2 50 07/28/23 02:51 Intake & Output 07/29/23 07/30/23 07/30/23 18:59 06:59 18:59 Intake Total 450 350 Output Total 1350 800 Balance -900 -450 Weight 78.1 kg Intake: Oral 450 350 Output: Urine 1350 800 Other: Voiding Method External Catheter External Catheter ABP, PAP, CO, CI - Last Documented Arterial Blood Pressure 124/51 - Exam CONSTITUTIONAL: Appears comfortable, cooperative, no acute distress RESPIRATORY: Lungs sounds diminished bilaterally, faint expiratory wheezes present. Respirations even, slightly labored. Currently on room air with oxygen saturation 93%. Able to achieve 1500 mL on incentive spirometry. Weak cough. CARDIOVASCULAR: S1, S2 present. Regular rate and rhythm, sinus rhythm on telemetry. Palpable peripheral pulses bilaterally. No edema present. No calf pain or tenderness noted. SCDs present. GASTROINTESTINAL: Abdomen soft, nontender, nondistended. Active bowel sounds present 4 quadrants. Tolerating diet. Positive bowel movement GENITOURINARY: Continues to void with external catheter in place, output 2150 mL in the last 24 hours INTEGUMENTARY: Skin is warm and dry NEUROLOGIC: Cranial nerves II through XII intact MUSKULOSKELETAL: Able to move all extremities, strength equal bilaterally PSYCHIATRIC: Alert and oriented to person place and time, appropriate affect, intact judgment and insight - Allied health notes Allied health notes reviewed: nursing - Labs CBC & Chem 7: 07/30/23 05:08 07/30/23 05:08 Labs: Abnormal Lab Results - Last 24 Hours (Table) 07/30/23 07/30/23 Range/Units 05:08 05:08 WBC 16.2 H (3.8-10.6) k/uL RBC 3.97 L (4.30-5.90) m/uL Hgb 12.0 L (13.0-17.5) gm/dL Hct 34.9 L (39.0-53.0) % Sodium 131 L (137-145) mmol/L Chloride 95 L (98-107) mmol/L BUN 52 H (9-20) mg/dL Glucose 143 H (74-99) mg/dL - Imaging and Cardiology Chest x-ray: image reviewed Assessment and Plan Assessment: Lung cancer, adenocarcinoma, status post bronchoscopy, robotic-assisted thoracoscopic surgery with right upper lobectomy, mediastinal lymph node dissection, intercostal nerve block at 3 levels, final pathology consistent with 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 Bronchodilators/steroids per pulmonology Will monitor daily x-rays and labs. Continue IV lasix, decrease to daily Increase activity as tolerated GI/DVT prophylaxis Pain control with current medication regimen. No Toradol due to JAKUB Continue fluid restriction and salt tablet replacement May transfer out of ICU if ok with pulmonology More recommendations to follow
[2023-07-30] MEDS: FORMOTEROL FUMARATE 20 MCG/2 ML NEBU INHALATION SCH ×2 (07:52→20:58)
[2023-07-30] MEDS: IPRATROPIUM-ALBUTEROL 3 ML NEB IH SCH ×4 (07:54→20:58)
[2023-07-30] MEDS: TAMSULOSIN 0.4 MG CAP.ER.24H PO SCH (08:08)
[2023-07-30] MEDS: PANTOPRAZOLE 40 MG TABLET PO SCH (08:08)
[2023-07-30] MEDS: traMADol 50 MG TAB PO PRN (08:10)
[2023-07-30] MEDS: CHOLECALCIFEROL 25 MCG (1000 IU) TABLET PO SCH (08:27)
[2023-07-30] MEDS: ASPIRIN 81 MG PO SCH ×2 (08:28→21:13)
[2023-07-30] MEDS: LOSARTAN 50 MG TAB PO SCH (08:28)
[2023-07-30] MEDS: CYANOCOBALAMIN 500 MCG TAB PO SCH (08:28)
[2023-07-30] MEDS: hydrALAZINE HCL 25 MG TAB PO SCH ×3 (08:28→21:13)
[2023-07-30] MEDS: guaiFENesin 600 MG TABLET.ER PO SCH ×2 (08:28→21:13)
[2023-07-30] MEDS: MULTIVITAMINS, THERA 1 EACH TAB PO SCH (08:28)
[2023-07-30] MEDS ORDERED: FUROSEMIDE 10 MG/ML 4 ML VIAL IV SCH (09:00)
--- NOTE | 2023-07-30 09:07 | P.PN ---
Subjective Progress Note Date: 07/30/23 Principal diagnosis: Bradycardia The patient is a pleasant 87-year-old gentleman who sees Dr. Barakat irregularly with a past medical history significant for coronary artery disease with previous stenting with unknown details, the stenting performed more than 20 years ago as well as hypertension and dyslipidemia and peripheral arterial disease. Recently he was diagnosed with a mass involving the right upper lobe and he was admitted to the hospital yesterday where he underwent accounts payable assistant right upper lobectomy by Dr. Baer. We consulted to see the patient because of bradycardia noted when the patient was admitted to the intensive care unit. An EKG was performed and showed what it seems to be AV block. Unfortunately the EKG is unavailable at this point and we are in process of obtaining another one. The patient is bradycardic with heart rate in the 50s and 60s. Pressure has been stable but appeared to be marginally low. The patient is not experiencing any symptoms of dizziness or lightheadedness and no presyncope or syncope and no symptoms of any chest pain or chest discomfort but does have shortness of breath which appeared to be chronic. Currently he is not on any AV vic chastity agents. No TSH or free T4 performed and we are in process of getting one. Also echocardiogram was performed on BR] of getting an echo as well. Blood work revealed hyperkalemia with potassium of 5.2. His kidney function is abnormal as well and currently his renal failure. No history of bradycardia and he was not on any AV vic chastity agents at home. The examination is remarkable for regular rhythm with a systolic murmur at the right upper sternal border and diminished breathing sounds bilaterally. July [id number] The patient was seen and evaluated this morning. The bradycardia has resolved and currently he is in sinus rhythm with heart rate in the 70s. He underwent an echo which revealed normal LV systolic function was mild aortic stenosis and moderate pulmonary hypertension. TSH came in to be unremarkable.. He is doing overall good and he seems to be stable with a normal blood pressure as well as heart rate. At this point I would continue the current medical regimen and continue following up with the patient The examination is remarkable for regular rhythm with a systolic murmur and diminished breathing sounds bilaterally 07/28/2023 The patient was seen and evaluated this morning. Apparently was brought back to the intensive care because he didn't have shortness of breath on the floor yesterday. The chest x-ray showed findings consistent with possible pulmonary edema and he was given one dose of Lasix IV. He still slightly hypoxic currently is on oxygen. On examination he does have a lateral expiratory wheezing. Steroids was given in addition to the Lasix IV. Unfortunately his sodium continues to be low we will continue monitor the sodium. His kidney function remains stable. Examination is remarkable for bilateral expiratory wheezing The patient was seen and evaluated this morning. He is overall feeling better. The dose of Lasix was decreased to 40 mg IV daily which I would agree on. He is not having any episodes of bradycardia. From the cardiovascular standpoint of view, the patient is stable and will follow-up with the patient on when necessary case The examination is remarkable for diminished breathing sounds bilaterally. The wheezing has improved Assessment Status post robotic surgery as described above Asymptomatic bradycardia which has resolved CAD as described above Hyperkalemia Heart failure Plan Continue avoiding any AV vic chastity agents Follow-up with the patient on as-needed basis Objective - Vital Signs Vital signs: Vital Signs Temp 97.6 F 07/30/23 08:00 Pulse 72 07/30/23 08:10 Resp 24 07/30/23 08:10 BP 157/120 07/30/23 08:00 Pulse Ox 93 L 07/30/23 08:00 FiO2 50 07/28/23 02:51 Intake & Output 07/29/23 07/30/23 07/30/23 18:59 06:59 18:59 Intake Total 450 350 Output Total 1350 800 200 Balance -900 -450 -200 Weight 78.1 kg Intake: Oral 450 350 Output: Urine 1350 800 200 Other: Voiding Method External Catheter External Catheter External Catheter ABP, PAP, CO, CI - Last Documented Arterial Blood Pressure 124/51 - Labs CBC & Chem 7: 07/30/23 05:08 07/30/23 05:08 Labs: Abnormal Lab Results - Last 24 Hours (Table) 07/30/23 07/30/23 Range/Units 05:08 05:08 WBC 16.2 H (3.8-10.6) k/uL RBC 3.97 L (4.30-5.90) m/uL Hgb 12.0 L (13.0-17.5) gm/dL Hct 34.9 L (39.0-53.0) % Sodium 131 L (137-145) mmol/L Chloride 95 L (98-107) mmol/L BUN 52 H (9-20) mg/dL Glucose 143 H (74-99) mg/dL
--- NOTE | 2023-07-30 09:22 | P.PN ---
Subjective Progress Note Date: 07/30/23 A very pleasant 87-year-old male patient has difficulties in hearing The patient was referred to me for an abnormal CAT scan of the chest that showed a focal 5.3 cm area of airspace disease in the right upper lobe and this was initially identified on a chest x-ray that was done on 03/22/2023 and this abnormality was not present back on a previous chest x-ray from 2016. As such, this is a new abnormality. The findings have remained persistent between 03/22/2023 chest x-ray and the CAT scan of the chest that was done on 04/12/2023. The possibilities that were entertained include chronic pneumonias, low-grade adenocarcinoma, lymphoma, etc. There is not a 7 mm lingular nodule and questionable 1.2 cm left basilar nodule. The patient also has some background emphysema, extensive triple-vessel coronary artery calcification, mediastinal lymph node calcification which is highly suggestive of previous TB exposure. 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 In fact, his mother because of complications of TB when he was 7 years old. The patient has checked positive for PPD and he has not received chemoprophylaxis with INH. He has rheumatoid arthritis. Is not taking any form of immunosuppression this point in time. He has worked in coal mines for many years. He has also smoked and he quit smoking 15-20 years ago. The PET/CT was completed on 05/20/2023 and the patient has a right upper lobe mass which is compatible with neoplasm. The mass itself is showing increased uptake with an SUV of 4.42. The same time, there was a superior hilar lymph node measuring SUV of 2.7 and additional lymph node and infrahilar area. Overall, there are 2 lymph nodes seen in the right hilum. I did a lengthy discussion with the son was also present. The patient is insistent biopsy for tissue diagnosis. Despite his age, his overall functionality is adequate. He is interested in establishing a diagnosis. Based on that, I recommended a robotic ion bronchoscopy. No hemoptysis. No other new complaints otherwise for now. He underwent a bronchoscopy without any major issues. He encountered some sore throat. The bronchoscopy was done and the right upper lobe mass was biopsied and the results are consistent with adenocarcinoma. As such, the patient is diagnosed having lung cancer. We discussed the findings. We will going to get a second opinion from oncology regarding treatment options. The patient is not interested in surgery. He is not interested in systemic chemotherapy at this point in time. Surgery on 07/24/2020 3 AM this morning I'm seeing this patient in the intensive care unit for a follow-up. The patient is doing well. He underwent a robotic-assisted thoracoscopic right upper lobectomy along with mediastinal lymph node dissection. He also received intercostal nerve block at 3 different levels. Currently, he is in the intensive care unit, hemodynamically stable on 3 L of oxygen by nasal cannula. The postop chest x- ray was done and reviewed and show some subcutaneous emphysema along the right chest wall and the neck area. I do not appreciate any pneumothorax. The p atient has a right-sided chest tube in place. Output from the chest tube is in order of 200 mL of bloody output and there is some mild air leak. The patient remains on oxygen and is currently on 3 L nasal cannula. No other complaints otherwise for now. The patient is complaining of pain at the surgical 1 sets and currently tramadol when necessary for pain control. He is awake and alert and communicating. On today's evaluation of 07/25/2023, the patient is postop day #1 following a right upper lobe resection. He is complaining of having some shortness of breath. He is currently on oxygen at 6 L nasal cannula. The patient has a right-sided chest tube in place. Total amount of output has been in the order of 250 mL since arrival from the operating room. Output is bloody. I do not appreciate any air leak on today's evaluation. A repeat chest x-ray was done at around 4 AM this morning and it showed a small apical pneumothorax. The right- sided chest tube is in a good location. The patient has a pulse ox of 94%. He is using the incentive spirometer and is pulling approximately 700 mL. He is on IV fluids with normal saline at rate of 50 mL an hour. His sodium level is down to 125, bicarb is at 17, BUN is at 42 with a creatinine of 1.6 and a white cell cause of 12.7 with a hemoglobin of 13.4. Urine output has also been low at 10- 15 mL an hour. On today's evaluation of 07/26/2023, the patient is being seen in follow-up in the intensive care unit. The patient is currently postop day #2 following his right upper lobe resection. the patient is currently on 2 L of oxygen by nasal cannula. Pulse ox 94%. Using the incentive spirometer. A repeat chest x-ray was done today and the patient was found to have a stable right apical pneumothorax in the order of 10-15%. The patient is postop day #2 following a right upper lobectomy and mediastinal lymph node dissection. No active issues with pain. No evidence of air leak and the output from the right-sided chest tube is in order of 200 mL serosanguineous drainage over the past 24 hours. Sodiums of 124, serum bicarb is at 24 and the BUN is at 37 with a creatinine of 1.2. No other the patient was experiencing increased bronchospasm and wheeze yesterday. The patient was given to those of IV Solu-Medrol in his overall respiratory status improved compared to yesterday. He was also given 2 doses of sodium bicarbonate IV and the bicarb deficit is being replaced. The patient's sodium remains low, asymptomatic. IV fluids are currently at KVO.The patient was having a bradycardic rhythm yesterday and this was thought to be junctional bradycardia versus low rates atrial fibrillation. The heart rate is improved and the patient is currently in normal sinus rhythm. Echocardiogram was done and the patient has normal LV function, moderate degree of coronary hypertension, mild aortic stenosis. On today's evaluation of 07/27/2023, the patient is already out of the intensive care unit and the patient is on a medical surgical floor. The patient is postop day #3 following a right upper lobe resection. The right-sided chest tube is removed. There is an air-fluid level in the anterior aspect of the right upper lobe, probably a small loculated hydropneumothorax. Clinically,, the patient is doing well. His sodium level has dropped significantly down to 123. This is a postsurgical SIADH. The patient was given salt tablets of fluid restriction. He is asymptomatic. Nephrology is on the case and the patient is going to receive Samsca. White cell count is 11.2, hemoglobin is 11.8, patient is using the senna spirometer. The patient is currently on 2 L with a pulse ox of 95%. Today's evaluation of 07/28/2023, the patient is back to the intensive care unit. Overnight, he acutely became short of breath. The chest x-ray was done that showed no evidence of any pneumothorax. The patient was bronchus spastic and wheezy. The patient was given Solu-Medrol. The patient was also given a do se of Lasix 20 mg IV. He produced good urine output. He was normal to the intensive care unit. He was placed on 15 L of oxygen nasal cannula initially and he was gradually weaned off and is currently back on 2 L. Is much more comfortable at this point in time. He is not using it has somewhat of breathing. His abdomen is soft. No chest pain. No altered mentation. White cell count is 11.3 with a hemoglobin 12.3, sodium is at 125 with a BUN of 35 and a creatinine of 1.0. In regards to his hyponatremia, the patient was given a dose of Samsca 7.5 mg by mouth 1. Sodium level is stable for now. 07/29/2023, the patient remains on oxygen at 2 L. Less bronchus spastic and wheezing compared to yesterday. The repeat chest x-ray shows a tiny right-sided pneumothorax which is probably in the order of 5-10%. The patient otherwise is feeling well. No specific complaints. Sodium is at 1:30, potassium is at 4.1, BUN is at 38 with a creatinine of 0.9. The white cell count of 15.4 with a hemoglobin of 11.4. He is using the senna spirometer. I have him on a combination of bronchodilators with DuoNeb updrafts 4 times a day, he is also on IV Solu-Medrol 40 mg every 8 hours. Tolerating his diet. No nausea or emesis. No issues with pain. 07/30/2023, the patient is doing extremely well. Less short of breath and less bronchospastic and wheezing compared to yesterday. The chest x-ray continues to show a tiny right apical pneumothorax. The patient is having some fullness in h is stomach probably related to lack of bowel movement with activity. For the most part, his condition stable. Oxygen is improved and the patient is currently on room air oxygen. The patient's sodium levels of 131. Potassium is at 4.1. BUN is a 52 with a creatinine of 1 and WBC count at 16.2 with a hemoglobin of 12. He is using the incentive spirometer. No confusion. No altered mentation. He remains on bronchodilators. He remains on IV Solu- Medrol. Objective - Vital Signs Vital signs: Vital Signs Temp 97.6 F 07/30/23 08:00 Pulse 70 07/30/23 09:00 Resp 12 07/30/23 09:00 BP 164/75 07/30/23 09:00 Pulse Ox 94 L 07/30/23 09:00 FiO2 50 07/28/23 02:51 Intake & Output 07/29/23 07/30/23 07/30/23 18:59 06:59 18:59 Intake Total 450 350 Output Total 1350 800 200 Balance -900 -450 -200 Weight 78.1 kg Intake: Oral 450 350 Output: Urine 1350 800 200 Other: Voiding Method External Catheter External Catheter External Catheter ABP, PAP, CO, CI - Last Documented Arterial Blood Pressure 124/51 - Exam This, the patient is calm and comfortable, currently on room air oxygen, communicating, he is hard of hearing Head exam was generally normal. There was no scleral icterus or corneal arcus. Mucous membranes were moist. Neck was supple and without jugular venous distension, thyromegaly, or carotid bruits. Carotids were easily palpable bilaterally. There was no adenopathy. Lungs sounds are diminished and the patient has scattered rhonchi heard bilaterally. The patient also has a right-sided chest tube has been removed Cardiac exam revealed the PMI to be normally situated and sized. The rhythm was regular and no extrasystoles were noted during several minutes of auscultation. The first and second heart sounds were normal and physiologic splitting of the second heart sound was noted. There were no murmurs, rubs, clicks, or gallops., The patient has some occasional PACs Abdominal exam revealed normal bowel sounds. The abdomen was soft, non-tender, and without masses, organomegaly, or appreciable enlargement of the abdominal aorta. Examination of the extremities revealed easily palpable radial, femoral and pedal pulses. There was no cyanosis, clubbing or edema. Examination of the skin revealed no evidence of significant rashes, suspicious appearing nevi or other concerning lesions. Neurologically, the patient is awake and alert and the patient does not have any focal neurological deficit. Cranial nerves are essentially intact. - Labs CBC & Chem 7: 07/30/23 05:08 07/30/23 05:08 Labs: Abnormal Lab Results - Last 24 Hours (Table) 07/30/23 07/30/23 Range/Units 05:08 05:08 WBC 16.2 H (3.8-10.6) k/uL RBC 3.97 L (4.30-5.90) m/uL Hgb 12.0 L (13.0-17.5) gm/dL Hct 34.9 L (39.0-53.0) % Sodium 131 L (137-145) mmol/L Chloride 95 L (98-107) mmol/L BUN 52 H (9-20) mg/dL Glucose 143 H (74-99) mg/dL Assessment and Plan Plan: Right upper lobe adenocarcinoma/mass and the patient is post robotic-assisted right upper lobe resection patient is currently postop day #5. The patient's had a 5.3 cm masslike opacity in the right upper lobe mass in the preop PET/CT showed increase uptake in the right suprahilar lymph node with an SUV of 2.7 and additional lymph node and infrahilar area. 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 The patient was given stage IIB N0 M0 disease based on the TNM, AJCC 8 edition. Acute shortness of breath and the patient got chest and back to the intensive care unit. Bronchospastic and wheezy and there may be a component of COPD e xacerbation. 5-10% pneumothorax was seen on the right. 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 Positive PPD and the patient has not received chemo prophylaxis with INH Coronary artery disease Peripheral vascular disease Hyperlipidemia Rheumatoid arthritis COPD Impaired hearing History of basal cell carcinoma of the skin Acute kidney injury and the creatinine is improved Not and get metabolic acidosis, improved and the bicarb deficit is better placed Sinus bradycardia versus junctional rhythm, recovered and the echocardiogram showed a preserved LV function with moderate degree of pulmonary hypertension Plan We'll continue same treatment Currently on room air oxygen Monitor the right-sided pneumothorax Continue Solu-Medrol 40 mg every 8 hours for another 24 hours Continue DuoNeb updrafts Monitor sodium level, improved No need for Lasix and this will be discontinued right-sided chest tube has been removed and the chest echo shows a loculated right apical hydropneumothorax Continue bronchodilators Pain control with tramadol. Incentive spirometer Daily chest x-ray Salt tablets and fluid restriction Hemodynamically stable Echo was noted and the patient has moderate degree of pulmonary hypertension, preserved LV function and a cardiac rhythm is improved and the patient is currently in normal sinus rhythm without any significant bradycardia Heparin subcu for DVT prophylaxis We'll continue to follow make further recommendations based on his progress
[2023-07-30] MEDS ORDERED: bisacodyL 10 MG SUPP RECTAL PRN (09:24)
[2023-07-30] MEDS: POTASSIUM BICARBONATE/CIT AC 20 MEQ TABLET.EFF PO SCH (09:24)
[2023-07-30] MEDS: SENNOSIDES-DOCUSATE SODIUM 1 EACH TAB PO SCH ×2 (09:29→21:13)
[2023-07-30] MEDS ORDERED: hydrALAZINE HCL 20 MG/ML 1 ML VIAL IVP PRN (10:02)
--- NOTE | 2023-07-30 10:02 | P.PN ---
Subjective Patient is seen in follow-up for hyponatremia. Sodium level 131 today. Received IV Lasix yesterday. Lasix discontinued this morning. Also received Samsca this admission. Oral intake is good. No vomiting or diarrhea. Sitting up in bed. Vital signs are stable. General: No acute distress. HEENT: Head exam is unremarkable. LUNGS: No audible rhonchi or wheezes. HEART: Rate and Rhythm are regular. ABDOMEN: Nontender. EXTREMITITES: No edema. Objective - Vital Signs Vital signs: Vital Signs Temp 97.6 F 07/30/23 08:00 Pulse 70 07/30/23 09:00 Resp 12 07/30/23 09:00 BP 164/75 07/30/23 09:00 Pulse Ox 94 L 07/30/23 09:00 FiO2 50 07/28/23 02:51 Intake & Output 07/29/23 07/30/23 07/30/23 18:59 06:59 18:59 Intake Total 450 350 Output Total 1350 800 200 Balance -900 -450 -200 Weight 78.1 kg Intake: Oral 450 350 Output: Urine 1350 800 200 Other: Voiding Method External Catheter External Catheter External Catheter ABP, PAP, CO, CI - Last Documented Arterial Blood Pressure 124/51 - Labs CBC & Chem 7: 07/30/23 05:08 07/30/23 05:08 Labs: Abnormal Lab Results - Last 24 Hours (Table) 07/30/23 07/30/23 Range/Units 05:08 05:08 WBC 16.2 H (3.8-10.6) k/uL RBC 3.97 L (4.30-5.90) m/uL Hgb 12.0 L (13.0-17.5) gm/dL Hct 34.9 L (39.0-53.0) % Sodium 131 L (137-145) mmol/L Chloride 95 L (98-107) mmol/L BUN 52 H (9-20) mg/dL Glucose 143 H (74-99) mg/dL Assessment and Plan Plan: Assessment: 1. 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 Thiazide diuretic held. Sodium level 131 today. TSH normal. Urine sodium 43 and urine osmolality 535. 2. Acute kidney injury secondary to vasomotor nephropathy from hemodynamic i nstability. Creatinine peaked at 1.6 this admission and is 0.96 today. 3. Lung cancer status post right upper lobectomy 07/24/2023. 4. Bradycardia. Amlodipine discontinued. Resolved. Cardiology following. 5. Acute hypoxic respiratory failure. Improved. Now on room air. 6. Benign hypertension. Exacerbated by steroids. Plan: Encourage oral intake. Maintain 1200 mL fluid restriction. Repeat Samsca today. Repeat labs in the morning.
[2023-07-30] MEDS ORDERED: TOLVAPTAN 15 MG TABLET PO ONE (11:00)
[2023-07-30] MEDS: ACETAMINOPHEN TAB 325 MG TAB PO PRN ×3 (12:21→21:19)
[2023-07-30] MEDS: ATORVASTATIN 10 MG TAB PO SCH (21:13)
[2023-07-30] MEDS: IPRATROPIUM-ALBUTEROL 3 ML NEB IH PRN (21:33)
[2023-07-31] MEDS: PANTOPRAZOLE 40 MG TABLET PO SCH (06:29)
--- NOTE | 2023-07-31 07:38 | XR ---
EXAMINATION TYPE: XR chest 1V portable DATE OF EXAM: 07/31/2023 7:17 AM CLINICAL INDICATION:Male, 87 years old with history of post lobectomy; [facility] COMPARISON: Chest radiograph from one day prior. TECHNIQUE: XR chest 1V portable Frontal view of the chest. FINDINGS: Lungs/Pleura: Small right pneumothorax similar prior. Low lung volumes are present. There is no evide nce of pleural effusion, focal consolidation, or left pneumothorax. Pulmonary vascularity: Unremarkable. Heart/mediastinum: Cardiomediastinal silhouette is enlarged and stable. Atherosclerotic calcificatio ns are seen in the aorta. Musculoskeletal: No acute osseous pathology. IMPRESSION: Similar right small pneumothorax.
--- NOTE | 2023-07-31 07:46 | P.PN ---
Subjective Progress Note Date: 07/31/23 Principal diagnosis: Lung cancer, adenocarcinoma. History of CAD with previous WI and PCI, hypertension, hyperlipidemia, previous tobacco dependence, COPD, peripheral arterial disease, BPH, rheumatoid arthritis POD #7 bronchoscopy, robotic-assisted thoracoscopic surgery with right upper lobectomy, mediastinal lymph node dissection, intercostal nerve block at 3 levels Postoperative bradycardia, unexpected, not on AV vic blocking agents Postoperative acute kidney injury and hyperkalemia, somewhat expected as patient had borderline kidney function and high normal levels of potassium preoperative Hyponatremia secondary to SIADH likely from underlying malignancy The patient was seen and examined this morning sitting up in a recliner on the cardiac stepdown unit in no acute distress. States his breathing is better, only periodically short of breath which is chronic for him. Currently on room air with oxygen saturation in the low 90s. Chest x-ray reviewed, labs pending. Patient continues on IV Solu-Medrol. Objective - Vital Signs Vital signs: Vital Signs Temp 98.2 F 07/31/23 03:59 Pulse 75 07/31/23 03:59 Resp 18 07/31/23 03:59 BP 168/69 07/31/23 03:59 Pulse Ox 90 L 07/31/23 03:59 FiO2 50 07/28/23 02:51 Intake & Output 07/30/23 07/31/23 07/31/23 18:59 06:59 18:59 Intake Total 240 240 Output Total 475 Balance -235 240 Weight 76.1 kg Intake: Oral 240 240 Output: Urine 475 Other: Voiding Method Urinal Urinal # Voids 1 # Bowel Movements 0 1 ABP, PAP, CO, CI - Last Documented Arterial Blood Pressure 124/51 - Exam CONSTITUTIONAL: Appears comfortable, cooperative, no acute distress RESPIRATORY: Lungs sounds diminished bilaterally. Respirations even, nonlabored. Currently on room air with oxygen saturation 90%. Able to achieve 1500 mL on incentive spirometry. Strong cough. CARDIOVASCULAR: S1, S2 present. Regular rate and rhythm, sinus rhythm on telemetry. Palpable peripheral pulses bilaterally. No edema present. No calf pain or tenderness noted. SCDs present. GASTROINTESTINAL: Abdomen soft, nontender, nondistended. Active bowel sounds present 4 quadrants. Tolerating diet. Positive bowel movement GENITOURINARY: Continues to void INTEGUMENTARY: Skin is warm and dry NEUROLOGIC: Cranial nerves II through XII intact MUSKULOSKELETAL: Able to move all extremities, strength equal bilaterally PSYCHIATRIC: Alert and oriented to person place and time, appropriate affect, intact judgment and insight - Labs CBC & Chem 7: 07/30/23 05:08 07/30/23 05:08 - Imaging and Cardiology Chest x-ray: image reviewed Assessment and Plan Assessment: Lung cancer, adenocarcinoma, status post bronchoscopy, robotic-assisted thoracoscopic surgery with right upper lobectomy, mediastinal lymph node dissection, intercostal nerve block at 3 levels, final pathology consistent with invasive pulmonary adenocarcinoma with acinar and lepidic pattern Acute hypoxic respiratory failure, non-anion gap metabolic acidosis History of CAD with previous WI and PCI History of hypertension Hyperlipidemia, treated Previous tobacco dependence COPD, 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 Bronchodilators/steroids per pulmonology Will monitor daily x-rays and labs Increase activity as tolerated GI/DVT prophylaxis Pain control with current medication regimen. No Toradol due to JAKUB Continue fluid restriction. Salt tablet replacement discontinued by nephrologyRegis ordered again yesterday Discharge planning in progress, hopefully discharge home soon More recommendations to follow
[2023-07-31] MEDS: IPRATROPIUM-ALBUTEROL 3 ML NEB IH SCH ×4 (08:28→22:11)
[2023-07-31] MEDS: FORMOTEROL FUMARATE 20 MCG/2 ML NEBU INHALATION SCH ×2 (08:28→22:11)
[2023-07-31] MEDS ORDERED: amLODIPine 5 MG TAB PO SCH (09:00)
[2023-07-31] MEDS: methylPREDNISolone SOD SUCCI 40 MG/ML 1 ML VIAL IV SCH (09:13)
[2023-07-31] MEDS: ASPIRIN 81 MG PO SCH ×2 (09:13→20:50)
[2023-07-31] MEDS: CYANOCOBALAMIN 500 MCG TAB PO SCH (09:13)
[2023-07-31] MEDS: TAMSULOSIN 0.4 MG CAP.ER.24H PO SCH (09:13)
[2023-07-31] MEDS: MULTIVITAMINS, THERA 1 EACH TAB PO SCH (09:13)
[2023-07-31] MEDS: hydrALAZINE HCL 25 MG TAB PO SCH ×3 (09:13→20:50)
[2023-07-31] MEDS: CHOLECALCIFEROL 25 MCG (1000 IU) TABLET PO SCH (09:13)
[2023-07-31] MEDS: LOSARTAN 50 MG TAB PO SCH (09:13)
[2023-07-31] MEDS: guaiFENesin 600 MG TABLET.ER PO SCH ×2 (09:13→20:51)
[2023-07-31] MEDS: HEPARIN SODIUM,PORCINE 5,000 UNIT/ML 1 ML VIAL SQ SCH ×3 (09:13→23:23)
--- NOTE | 2023-07-31 11:33 | P.PN ---
Subjective Patient is seen for follow-up for hyponatremia. Serum sodium is 131 from yesterday. No significant complaints today. Objective - Vital Signs Vital signs: Vital Signs Temp 97.7 F 07/31/23 09:11 Pulse 66 07/31/23 11:25 Resp 19 07/31/23 11:25 BP 167/67 07/31/23 11:25 Pulse Ox 92 L 07/31/23 11:25 FiO2 50 07/28/23 02:51 Intake & Output 07/30/23 07/31/23 07/31/23 18:59 06:59 18:59 Intake Total 240 240 540 Output Total 475 Balance -235 240 540 Weight 76.1 kg Intake: Oral 240 240 540 Output: Urine 475 Other: Voiding Method Urinal Urinal Toilet Urinal # Voids 1 1 # Bowel Movements 0 1 ABP, PAP, CO, CI - Last Documented Arterial Blood Pressure 124/51 - Exam Patient is sleeping but arousable, comfortable, no acute distress Examination of the heart S1 and S2 Examination lungs bilateral breath sounds are heard Abdomen is soft nontender Examination lower extremity shows no significant edema - Labs CBC & Chem 7: 07/30/23 05:08 07/30/23 05:08 Assessment and Plan Assessment: 1. 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 Thiazide diuretic held. Sodium level 131 yesterday. TSH normal. Urine sodium 43 and urine osmolality 535. 2. Acute kidney injury secondary to vasomotor nephropathy from hemodynamic instability. Creatinine peaked at 1.6 this admission and is 0.96 today. 3. Lung cancer status post right upper lobectomy 07/24/2023. 4. Bradycardia. Amlodipine discontinued. Resolved. Cardiology following. 5. Acute hypoxic respiratory failure. Improved. Now on room air. 6. Benign hypertension. Exacerbated by steroids. Plan: Follow-up on labs from today Maintain fluid restriction
[2023-07-31 13:40] LABS: HCT 37.5 % (39.0-53.0); HGB 12.4 gm/dL (13.0-17.5); MCH 28.8 pg (25.0-35.0); MCV 87.3 fL (80.0-100.0); Mean Platelet Volume 8.7; Platelet Count 506 k/uL (150-450); WBC 17.6 k/uL (3.8-10.6)
[2023-07-31 14:04] LABS: African American GFR (CKD) 81 (>60 ml/min/1.73 sqM); Anion Gap 10 mmol/L; Blood Urea Nitrogen 52 mg/dL (9-20); Calcium 8.7 mg/dL (8.4-10.2); Carbon Dioxide 26 mmol/L (22-30); Chloride 95 mmol/L (98-107); Glucose 127 mg/dL (74-99); Non-African American GFR(CKD) 70 (>60 ml/min/1.73 sqM); Potassium 4.4 mmol/L (3.5-5.1); Sodium 131 mmol/L (137-145)
[2023-07-31 15:34] VITALS: BMI 25.4
--- NOTE | 2023-07-31 15:56 | P.PN ---
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 As such, this is a new abnormality. The findings have remained persistent between 03/22/2023 chest x-ray and the CAT scan of the chest that was done on 04/12/2023. The possibilities that were entertained include chronic pneumonias, low-grade adenocarcinoma, lymphoma, etc. There is not a 7 mm lingular nodule and questionable 1.2 cm left basilar nodule. The patient also has some background emphysema, extensive triple-vessel coronary artery calcification, mediastinal lymph node calcification which is highly suggestive of previous TB exposure. 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 In fact, his mother because of complications of TB when he was 7 years old. The patient has checked positive for PPD and he has not received chemoprophylaxis with INH. He has rheumatoid arthritis. Is not taking any form of immunosuppression this point in time. He has worked in coal mines for many years. He has also smoked and he quit smoking 15-20 years ago. The PET/CT was completed on 05/20/2023 and the patient has a right upper lobe mass which is compatible with neoplasm. The mass itself is showing increased uptake with an SUV of 4.42. The same time, there was a henry perior hilar lymph node measuring SUV of 2.7 and additional lymph node and infrahilar area. Overall, there are 2 lymph nodes seen in the right hilum. I did a lengthy discussion with the son was also present. The patient is insistent biopsy for tissue diagnosis. Despite his age, his overall functionality is adequate. He is interested in establishing a diagnosis. Based on that, I recommended a robotic ion bronchoscopy. No hemoptysis. No other new complaints otherwise for now. He underwent a bronchoscopy without any major issues. He encountered some sore throat. The bronchoscopy was done and the right upper lobe mass was biopsied and the results are consistent with adenocarcinoma. As such, the patient is diagnosed having lung cancer. We discussed the findings. We will going to get a second opinion from oncology regarding treatment options. The patient is not interested in surgery. He is not interested in systemic chemotherapy at this point in time. Surgery on 07/24/2020 3 AM this morning I'm seeing this patient in the intensive care unit for a follow-up. The patient is doing well. He underwent a robotic-assisted thoracoscopic right upper lobectomy along with mediastinal lymph node dissection. He also received intercostal nerve block at 3 different levels. Currently, he is in the intensive care unit, hemodynamically stable on 3 L of oxygen by nasal cannula. The postop chest x- ray was done and reviewed and show some subcutaneous emphysema along the right chest wall and the neck area. I do not appreciate any pneumothorax. The patient has a right-sided chest tube in place. Output from the chest tube is in order of 200 mL of bloody output and there is some mild air leak. The patient remains on oxygen and is currently on 3 L nasal cannula. No other complaints otherwise for now. The patient is complaining of pain at the surgical 1 sets and currently tramadol when necessary for pain control. He is awake and alert and communicating. 07/29/2023, the patient remains on oxygen at 2 L. Less bronchus spastic and wheezing compared to yesterday. The repeat chest x-ray shows a tiny right-sided pneumothorax which is probably in the order of 5-10%. The patient otherwise is feeling well. No specific complaints. Sodium is at 1:30, potassium is at 4.1, BUN is at 38 with a creatinine of 0.9. The white cell count of 15.4 with a hemoglobin of 11.4. He is using the [employer] spirometer. I have him on a combination of bronchodilators with DuoNeb updrafts 4 times a day, he is also on IV Solu-Medrol 40 mg every 8 hours. Tolerating his diet. No nausea or emesis. No issues with pain. 07/30/2023, the patient is doing extremely well. Less short of breath and less bronchospastic and wheezing compared to yesterday. The chest x-ray continues to show a tiny right apical pneumothorax. The patient is having some fullness in his stomach probably related to lack of bowel movement with activity. For the most part, his condition stable. Oxygen is improved and the patient is currently on room air oxygen. The patient's sodium levels of 131. Potassium is at 4.1. BUN is a 52 with a creatinine of 1 and WBC count at 16.2 with a hemoglobin of 12. He is using the incentive spirometer. No confusion. No altered mentation. He remains on bronchodilators. He remains on IV Solu- Medrol. Reevaluated today on 07/31/2023, patient seems to be doing well, relatively asymptomatic, he is on room air, O2 sats is 94%. Chest x-ray continues to show at least a 20% pneumothorax on the right side. Surprisingly the patient is not symptomatic. Patient is now postoperative day #7. W see count of 17.6 hemoglobin is 12.4 lites are normal except for slightly low sodium of 131, BUN is 52 creatinine is 0.98 BNP level 4140 Objective - Vital Signs Vital signs: Vital Signs Temp 97.7 F 07/31/23 09:11 Pulse 76 07/31/23 15:37 Resp 19 07/31/23 15:19 BP 156/67 07/31/23 15:19 Pulse Ox 94 L 07/31/23 15:19 FiO2 50 07/28/23 02:51 Intake & Output 07/30/23 07/31/23 07/31/23 18:59 06:59 18:59 Intake Total 240 240 540 Output Total 475 Balance -235 240 540 Weight 76.1 kg 76.1 kg Intake: Oral 240 240 540 Output: Urine 475 Other: Voiding Method Urinal Urinal Toilet Urinal # Voids 1 1 # Bowel Movements 0 1 ABP, PAP, CO, CI - Last Documented Arterial Blood Pressure 124/51 - Exam Physical Exam: Revealed a 87-year-old white male in no distress Head: Atraumatic, normocephalic. HEENT:[Neck is supple.] [No neck masses.] [No thyromegaly.] [No JVD.] Chest: [Clear throughout, no crackles, no rhonchi, no wheezes.] Cardiac Exam: [Normal S1 and S2, no S3 gallop, no murmur.] Abdomen: [Soft, nontender, no megaly, no rebound, no guarding, normal bowel sounds.] Extremities: [No clubbing, no edema, no cyanosis.] Neurological Exam: [No focal neurologic deficit.] Alert and oriented 3 Psychiatric: Normal mood affect and normal. Skin: No rash - Labs CBC & Chem 7: 07/31/23 12:46 07/31/23 12:46 Labs: Abnormal Lab Results - Last 24 Hours (Table) 07/31/23 07/31/23 Range/Units 12:46 12:46 WBC 17.6 H (3.8-10.6) k/uL Hgb 12.4 L (13.0-17.5) gm/dL Hct 37.5 L (39.0-53.0) % Plt Count 506 H (150-450) k/uL Sodium 131 L (137-145) mmol/L Chloride 95 L (98-107) mmol/L BUN 52 H (9-20) mg/dL Glucose 127 H (74-99) mg/dL Assessment and Plan Assessment: Impression: Lung cancer, adenocarcinoma, status post bronchoscopy, robotic-assisted thoracoscopic surgery with right upper lobectomy History of CAD with previous GA and PCI History of hypertension Dyslipidemia Ex-smoker COPD, 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 We'll continue to follow Time with Patient: Less than 30
[2023-07-31] MEDS: SENNOSIDES-DOCUSATE SODIUM 1 EACH TAB PO SCH (20:50)
[2023-07-31] MEDS: ACETAMINOPHEN TAB 325 MG TAB PO PRN (20:51)
[2023-07-31] MEDS: ATORVASTATIN 10 MG TAB PO SCH (20:51)
[2023-07-31 23:26] VITALS: RESP 20
[2023-08-01] MEDS: PANTOPRAZOLE 40 MG TABLET PO SCH (06:37)
--- NOTE | 2023-08-01 07:51 | XR ---
EXAMINATION TYPE: XR chest 2V DATE OF EXAM: 08/01/2023 7:08 AM COMPARISON: Chest radiographs from 07/31/2023 TECHNIQUE: XR chest 2V Frontal and lateral views of the chest. CLINICAL INDICATION:Male, 87 years old with history of pneumothorax; FINDINGS: Lungs/Pleura: Small right pneumothorax is similar prior. Left lung is clear. Elevation the right bulmaro diaphragm. Right basilar atelectasis. Small right pleural effusion. Pulmonary vascularity: Unremarkable. Heart/mediastinum: Cardiomediastinal silhouette is enlarged and stable. Atherosclerotic calcificatio ns are seen in the aorta. Musculoskeletal: No acute osseous pathology. Other: Slightly decreased subcutaneous emphysema within the right supraclavicular region. IMPRESSION: 1. Stable small right pneumothorax with elevation of the right hemidiaphragm and associated atelecta sis. 2. Small right pleural effusion. 3. Slightly decreased small amount of soft tissue emphysema in the right supraclavicular region.
[2023-08-01] MEDS: IPRATROPIUM-ALBUTEROL 3 ML NEB IH SCH ×2 (07:56→11:12)
[2023-08-01] MEDS: FORMOTEROL FUMARATE 20 MCG/2 ML NEBU INHALATION SCH (07:56)
--- NOTE | 2023-08-01 08:08 | P.PN ---
Subjective Progress Note Date: 08/01/23 Principal diagnosis: Lung cancer, adenocarcinoma. History of CAD with previous VA and PCI, hypertension, hyperlipidemia, previous tobacco dependence, COPD, peripheral arterial disease, BPH, rheumatoid arthritis POD #8 bronchoscopy, robotic-assisted thoracoscopic surgery with right upper lobectomy, mediastinal lymph node dissection, intercostal nerve block at 3 levels Postoperative bradycardia, unexpected, not on AV vic blocking agents Postoperative acute kidney injury and hyperkalemia, somewhat expected as patient had borderline kidney function and high normal levels of potassium preoperative Hyponatremia secondary to SIADH likely from underlying malignancy The patient was seen and examined this morning sitting up in bed on the cardiac stepdown unit in no acute distress. States his breathing is better, only periodically short of breath which is chronic for him. Currently on room air with oxygen saturation in the low 90s. Chest x-ray reviewed, small stable pneumothorax remains which is expected, labs pending. Patient's steroids changed to oral yesterday. No other new concerns. Objective - Vital Signs Vital signs: Vital Signs Temp 97.7 F 08/01/23 04:50 Pulse 72 08/01/23 07:56 Resp 20 08/01/23 04:50 BP 168/72 08/01/23 04:50 Pulse Ox 92 L 08/01/23 04:50 FiO2 50 07/28/23 02:51 Intake & Output 07/31/23 08/01/23 08/01/23 18:59 06:59 18:59 Intake Total 780 480 Balance 780 480 Weight 76.1 kg 75.6 kg Intake: Oral 780 480 Other: Voiding Method Toilet Toilet Urinal Urinal # Voids 2 ABP, PAP, CO, CI - Last Documented Arterial Blood Pressure 124/51 - Exam CONSTITUTIONAL: Appears comfortable, cooperative, no acute distress RESPIRATORY: Lungs sounds diminished bilaterally. Respirations even, nonlabored. Currently on room air with oxygen saturation 93%. Able to achieve 1500 mL on incentive spirometry. Strong cough. CARDIOVASCULAR: S1, S2 present. Regular rate and rhythm, sinus rhythm on telemetry. Palpable peripheral pulses bilaterally. No edema present. No calf pain or tenderness noted. SCDs present. GASTROINTESTINAL: Abdomen soft, nontender, nondistended. Active bowel sounds present 4 quadrants. Tolerating diet. Positive bowel movement GENITOURINARY: Continues to void INTEGUMENTARY: Skin is warm and dry NEUROLOGIC: Cranial nerves II through XII intact MUSKULOSKELETAL: Able to move all extremities, strength equal bilaterally PSYCHIATRIC: Alert and oriented to person place and time, appropriate affect, intact judgment and insight - Allied health notes Allied health notes reviewed: nursing - Labs CBC & Chem 7: 07/31/23 12:46 07/31/23 12:46 Labs: Abnormal Lab Results - Last 24 Hours (Table) 07/31/23 07/31/23 Range/Units 12:46 12:46 WBC 17.6 H (3.8-10.6) k/uL Hgb 12.4 L (13.0-17.5) gm/dL Hct 37.5 L (39.0-53.0) % Plt Count 506 H (150-450) k/uL Sodium 131 L (137-145) mmol/L Chloride 95 L (98-107) mmol/L BUN 52 H (9-20) mg/dL Glucose 127 H (74-99) mg/dL - Imaging and Cardiology Chest x-ray: image reviewed Assessment and Plan Assessment: Lung cancer, adenocarcinoma, status post bronchoscopy, robotic-assisted thoracoscopic surgery with right upper lobectomy, mediastinal lymph node dissection, intercostal nerve block at 3 levels, final pathology consistent with invasive pulmonary adenocarcinoma with acinar and lepidic pattern Acute hypoxic respiratory failure, non-anion gap metabolic acidosis History of CAD with previous VA and PCI History of hypertension Hyperlipidemia, treated Previous tobacco dependence COPD, 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 Bronchodilators/steroids per pulmonology Will monitor daily x-rays and labs Increase activity as tolerated GI/DVT prophylaxis Pain control with current medication regimen. No Toradol due to JAKUB Continue fluid restriction Discharge planning in progress, hopefully discharge home today More recommendations to follow
[2023-08-01] MEDS ORDERED: hydrALAZINE HCL 25 MG TAB PO SCH (09:00)
[2023-08-01] MEDS ORDERED: predniSONE 10 MG TAB PO SCH (09:00)
[2023-08-01] MEDS: guaiFENesin 600 MG TABLET.ER PO SCH (09:20)
[2023-08-01] MEDS: MULTIVITAMINS, THERA 1 EACH TAB PO SCH (09:20)
[2023-08-01] MEDS: LOSARTAN 50 MG TAB PO SCH (09:20)
[2023-08-01] MEDS: TAMSULOSIN 0.4 MG CAP.ER.24H PO SCH (09:20)
[2023-08-01] MEDS: HEPARIN SODIUM,PORCINE 5,000 UNIT/ML 1 ML VIAL SQ SCH (09:20)
[2023-08-01] MEDS: CYANOCOBALAMIN 500 MCG TAB PO SCH (09:20)
[2023-08-01] MEDS: CHOLECALCIFEROL 25 MCG (1000 IU) TABLET PO SCH (09:20)
[2023-08-01] MEDS: ASPIRIN 81 MG PO SCH (09:20)
[2023-08-01 10:04] LABS: HGB 12.3 gm/dL (13.0-17.5); MCH 28.8 pg (25.0-35.0); MCHC 32.4 g/dL (31.0-37.0); Mean Platelet Volume 7.3; Platelet Count 444 k/uL (150-450); RBC 4.27 m/uL (4.30-5.90); WBC 16.9 k/uL (3.8-10.6)
[2023-08-01 10:24] LABS: African American GFR (CKD) 81 (>60 ml/min/1.73 sqM); Anion Gap 8 mmol/L; Blood Urea Nitrogen 51 mg/dL (9-20); Calcium 8.3 mg/dL (8.4-10.2); Carbon Dioxide 30 mmol/L (22-30); Chloride 95 mmol/L (98-107); Glucose 108 mg/dL (74-99); Non-African American GFR(CKD) 70 (>60 ml/min/1.73 sqM); Potassium 4.1 mmol/L (3.5-5.1); Sodium 133 mmol/L (137-145)
--- NOTE | 2023-08-01 11:50 | P.DS ---
Providers Date of admission: 07/24/23 05:48 Expected date of discharge: 08/01/23 Attending physician: Ricky Baer MD Consults: 07/24/23 12:42 Consult Physician Routine Consulting Provider: Amara Reyes Consult Reason/Comments: post lobectomy Do you want consulting provider notified?: Yes 07/24/23 17:44 Consult Physician Routine Consulting Provider: Sancho Wood Consult Reason/Comments: ?? mobitz 2 HB Do you want consulting provider notified?: Yes, Notify in am 07/26/23 09:54 Consult Physician Routine Consulting Provider: Lenny Vickers Consult Reason/Comments: low sodium Do you want consulting provider notified?: Yes [facility] Course: FINAL DIAGNOSIS: 1. Lung cancer, adenocarcinoma, final pathology consistent with invasive pulmonary adenocarcinoma with acinar and lepidic pattern 2. Acute hypoxic respiratory failure, non-anion gap metabolic acidosis, resolved 3. History of CAD and previous PR with PCI 4. History of hypertension 5. Hyperlipidemia, treated 6. Previous tobacco dependence 7. 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 Peripheral arterial disease 9. BPH 10. Rheumatoid arthritis 11. Postoperative bradycardia, resolved 12. Postoperative acute kidney injury and hyperkalemia 13. 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 Bronchoscopy 2. Robotic-assisted thoracoscopic surgery with right upper lobectomy 3. Mediastinal lymph node dissection 4. Intercostal nerve blocks at 3 levels HISTORY OF PRESENT ILLNESS: This is an 87-year-old gentleman who follows outpatient with Dr Mae for primary care and Dr. Reyes for pulmonology. This gentleman had been on Humira for his rheumatoid arthritis and had a chest x-ray ordered which noted a right-sided lung nodule. This prompted a PET/CT which noted a 5.6 cm right upper lobe mass with SUV of 4.4 to, some mild uptake in the right hilum. The patient denied any hemoptysis, weight loss, or any other symptomatology. He did undergo EBUS with transbronchial biopsies which were consistent with non-small cell carcinoma, no lymph nodes were taken. The patient was referred to Dr. Baer from cardiothoracic surgery. He was recommended to undergo robotic-assisted thoracoscopic right upper lobectomy with mediastinal lymph node dissection. The usual perioperative course was discussed in detail with the patient and his family, all risks and benefits were explained, all questions were answered, and consent was obtained to proceed with surgery. The patient was scheduled for surgery at the earliest possible date after obtaining cardiac clearance. HOSPITAL COURSE: The patient was brought to the hospital on 07/24/2023, taken to the preoperative area, prepared in the usual fashion, and subsequently taken to the operating room where Dr. Baer performed a robotic-assisted thoracoscopic surgery with right upper lobectomy and mediastinal lymph node dissection. Upon completion of surgery the patient was extubated and taken to the recovery room for further hemodynamic monitoring. He was eventually admitted to the intensive care unit. He did have a nayely postoperative course, but did recover. Pleural chest tube was discontinued on postoperative day #2. He was eventually transferred to S cardiac stepdown unit for further monitoring. His oxygen was titrated down, he continued to work with physical and occupational therapy, he was tolerating oral diet, his pain was controlled, and he was ready to be discharged to home with [facility] on postoperative day #8. He received written and verbal instruction regarding his medications, activity restrictions, signs and symptoms requiring physician notification, and follow-up appointments. Patient Condition at Discharge: Stable Plan - Discharge Summary Discharge Rx Participant: No New Discharge Prescriptions: New Sennosides-Docusate Sodium [Senokot-S] 2 each PO HS PRN tab PRN Reason: Constipation Acetaminophen Tab [Tylenol] 650 mg PO Q4HR PRN tab PRN Reason: Mild To Moderate Pain (1 - 6) Budesonide-Formot 160-4.5 Mcg [Symbicort 160-4.5 Mcg Inhaler] 2 puff INHALATION BID 30 Days #2 each hydrALAZINE HCL [Apresoline] 50 mg PO BID #60 tab guaiFENesin [Mucinex] 1,200 mg PO Q12HR PRN tab PRN Reason: Cough Calcium Carbonate [Tums] 500 mg PO TID PRN tab PRN Reason: Heartburn Ipratropium-Albuterol Nebulize [Duoneb 0.5 mg-3 mg/3 ml Soln] 3 ml IH RT-QID 30 Days #120 each Continue Aspirin 81 mg PO BID Cyanocobalamin [Vitamin B-12] 500 mcg PO DAILY amLODIPine [Norvasc] 5 mg PO HS Force Factor Prostate Suppl 1 dose PO DAILY Cholecalciferol [Vitamin D3 (25 Mcg = 1000 Iu)] 50 mcg PO DAILY Losartan [Cozaar] 100 mg PO QAM [place]-3/Dha/Epa/Fish Oil [Fish Oil 1,000 mg Softgel] 1 each PO DAILY Multivit-Min/Folic/Vit K/Lycop [Men's Multivitamin Tablet] 1 each PO DAILY Atorvastatin [Lipitor] 10 mg PO HS diphenhydrAMINE [Benadryl] 25 mg PO HS PRN PRN Reason: sinuses Discontinued hydroCHLOROthiazide 25 mg PO DAILY Discharge Medication List Aspirin 81 mg PO BID 02/26/14 [History] Cholecalciferol [Vitamin D3 (25 Mcg = 1000 Iu)] 50 mcg PO DAILY 08/19/22 [Histo ry] Cyanocobalamin [Vitamin B-12] 500 mcg PO DAILY 08/19/22 [History] Force Factor Prostate Suppl 1 dose PO DAILY 08/19/22 [History] Losartan [Cozaar] 100 mg PO QAM 08/19/22 [History] Multivit-Min/Folic/Vit K/Lycop [Men's Multivitamin Tablet] 1 each PO DAILY 08/19/22 [History] [place]-3/Dha/Epa/Fish Oil [Fish Oil 1,000 mg Softgel] 1 each PO DAILY 08/19/22 [History] amLODIPine [Norvasc] 5 mg PO HS 08/19/22 [History] Atorvastatin [Lipitor] 10 mg PO HS 06/05/23 [History] diphenhydrAMINE [Benadryl] 25 mg PO HS PRN 07/24/23 [History] Acetaminophen Tab [Tylenol] 650 mg PO Q4HR PRN tab 08/01/23 [Rx] Budesonide-Formot 160-4.5 Mcg [Symbicort 160-4.5 Mcg Inhaler] 2 puff INHALATION BID 30 Days #2 each 08/01/23 [Rx] Calcium Carbonate [Tums] 500 mg PO TID PRN tab 08/01/23 [Rx] Ipratropium-Albuterol Nebulize [Duoneb 0.5 mg-3 mg/3 ml Soln] 3 ml IH RT-QID 30 Days #120 each 08/01/23 [Rx] Sennosides-Docusate Sodium [Senokot-S] 2 each PO HS PRN tab 08/01/23 [Rx] guaiFENesin [Mucinex] 1,200 mg PO Q12HR PRN tab 08/01/23 [Rx] hydrALAZINE HCL [Apresoline] 50 mg PO BID #60 tab 08/01/23 [Rx] Follow up Appointment(s)/Referral(s): Kareem Mae DO [Primary Care Provider] - 1 Week Ricky Baer MD [STAFF PHYSICIAN] - 08/15/23 2:00 pm Amara Reyes MD [STAFF PHYSICIAN] - 08/07/23 2:15 pm [facility], [NON-STAFF] - 1 Week ([facility] will call you to arrange a visit) Activity/Diet/Wound Care/Special Instructions: Patient will need a nebulizer at discharge to manage COPD DISCHARGE INSTRUCTIONS: 1. No driving for 2 weeks, or until physician gives their ok. 2. No lifting, pushing, or pulling more than 10 pounds for 2 weeks. The physician will advise of any restriction changes. 3. Continue pain control per as needed orders. Alternate acetaminophen (Tylenol) and ibuprofen (Motrin/Advil) for pain. 4. Continue with incentive spirometry and splinting until otherwise directed by the physician. 5. Leave chest tube dressing for 48 hours. After that, remove all dressings and shower daily. 6. Routine incision care. No powders, lotions, ointments on incisions. 7. Please call surgeon/INBOUND CUSTOMER SERVICE REPRESENTATIVE for temp greater than 101 F or purulent drainage from incisions. 8. Smoking cessation counseling and program information provided. Quitting smoking is the most important step you can take to improve your health. For additional information and assistance to quit smoking, please call the [place] tobacco quit line (6-341-DVFV-NOW/ ) or online: [email or web address]://[email or web address].[email or web address] Discharge Disposition: HOME WITH HOME HEALTH SERVICES
--- NOTE | 2023-08-01 12:47 | P.PN ---
Subjective Patient is seen for follow-up for hyponatremia. Serum sodium is 133 today. No significant complaints. Objective - Vital Signs Vital signs: Vital Signs Temp 97.5 F L 08/01/23 09:17 Pulse 72 08/01/23 11:24 Resp 20 08/01/23 09:17 BP 164/64 08/01/23 09:17 Pulse Ox 90 L 08/01/23 09:17 FiO2 50 07/28/23 02:51 Intake & Output 07/31/23 08/01/23 08/01/23 18:59 06:59 18:59 Intake Total 780 480 0 Balance 780 480 0 Weight 76.1 kg 75.6 kg Intake: Oral 780 480 0 Other: Voiding Method Toilet Toilet Toilet Urinal Urinal Urinal # Voids 2 ABP, PAP, CO, CI - Last Documented Arterial Blood Pressure 124/51 - Exam Patient is sleeping but arousable, comfortable, no acute distress Examination of the heart S1 and S2 Examination lungs bilateral breath sounds are heard Abdomen is soft nontender Examination lower extremity shows no significant edema - Labs CBC & Chem 7: 08/01/23 09:37 08/01/23 09:37 Labs: Abnormal Lab Results - Last 24 Hours (Table) 07/31/23 07/31/23 08/01/23 Range/Units 12:46 12:46 09:37 WBC 17.6 H 16.9 H (3.8-10.6) k/uL RBC 4.27 L (4.30-5.90) m/uL Hgb 12.4 L 12.3 L (13.0-17.5) gm/dL Hct 37.5 L 38.0 L (39.0-53.0) % Plt Count 506 H (150-450) k/uL Sodium 131 L (137-145) mmol/L Chloride 95 L (98-107) mmol/L BUN 52 H (9-20) mg/dL Glucose 127 H (74-99) mg/dL Calcium (8.4-10.2) mg/dL 08/01/23 Range/Units 09:37 WBC (3.8-10.6) k/uL RBC (4.30-5.90) m/uL Hgb (13.0-17.5) gm/dL Hct (39.0-53.0) % Plt Count (150-450) k/uL Sodium 133 L (137-145) mmol/L Chloride 95 L (98-107) mmol/L BUN 51 H (9-20) mg/dL Glucose 108 H (74-99) mg/dL Calcium 8.3 L (8.4-10.2) mg/dL Assessment and Plan Assessment: 1. 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 Thiazide diuretic held. Sodium level 133 today. TSH normal. Urine sodium 43 and urine osmolality 535. 2. Acute kidney injury secondary to vasomotor nephropathy from hemodynamic instability. Creatinine peaked at 1.6 this admission and is 0.9 today. 3. Lung cancer status post right upper lobectomy 07/24/2023. 4. Bradycardia. Amlodipine discontinued. Resolved. Cardiology following. 5. Acute hypoxic respiratory failure. Improved. Now on room air. 6. Benign hypertension. Exacerbated by steroids. Plan: Maintain fluid restriction Increase Norvasc to 10 mg daily blood pressure remains elevated. Expect improvement once steroids are discontinued
[2023-08-01 13:06] VITALS: BP 179/78; PULSE 67; TEMP 97.7
--- NOTE | 2023-08-01 13:25 | P.PN ---
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 As such, this is a new abnormality. The findings have remained persistent between 03/22/2023 chest x-ray and the CAT scan of the chest that was done on 04/12/2023. The possibilities that were entertained include chronic pneumonias, low-grade adenocarcinoma, lymphoma, etc. There is not a 7 mm lingular nodule and questionable 1.2 cm left basilar nodule. The patient also has some background emphysema, extensive triple-vessel coronary artery calcification, mediastinal lymph node calcification which is highly suggestive of previous TB exposure. 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 In fact, his mother because of complications of TB when he was 7 years old. The patient has checked positive for PPD and he has not received chemoprophylaxis with INH. He has rheumatoid arthritis. Is not taking any form of immunosuppression this point in time. He has worked in coal mines for many years. He has also smoked and he quit smoking 15-20 years ago. The PET/CT was completed on 05/20/2023 and the patient has a right upper lobe mass which is compatible with neoplasm. The mass itself is showing increased uptake with an SUV of 4.42. The same time, there was a henry perior hilar lymph node measuring SUV of 2.7 and additional lymph node and infrahilar area. Overall, there are 2 lymph nodes seen in the right hilum. I did a lengthy discussion with the son was also present. The patient is insistent biopsy for tissue diagnosis. Despite his age, his overall functionality is adequate. He is interested in establishing a diagnosis. Based on that, I recommended a robotic ion bronchoscopy. No hemoptysis. No other new complaints otherwise for now. He underwent a bronchoscopy without any major issues. He encountered some sore throat. The bronchoscopy was done and the right upper lobe mass was biopsied and the results are consistent with adenocarcinoma. As such, the patient is diagnosed having lung cancer. We discussed the findings. We will going to get a second opinion from oncology regarding treatment options. The patient is not interested in surgery. He is not interested in systemic chemotherapy at this point in time. Surgery on 07/24/2020 3 AM this morning I'm seeing this patient in the intensive care unit for a follow-up. The patient is doing well. He underwent a robotic-assisted thoracoscopic right upper lobectomy along with mediastinal lymph node dissection. He also received intercostal nerve block at 3 different levels. Currently, he is in the intensive care unit, hemodynamically stable on 3 L of oxygen by nasal cannula. The postop chest x- ray was done and reviewed and show some subcutaneous emphysema along the right chest wall and the neck area. I do not appreciate any pneumothorax. The patient has a right-sided chest tube in place. Output from the chest tube is in order of 200 mL of bloody output and there is some mild air leak. The patient remains on oxygen and is currently on 3 L nasal cannula. No other complaints otherwise for now. The patient is complaining of pain at the surgical 1 sets and currently tramadol when necessary for pain control. He is awake and alert and communicating. 07/29/2023, the patient remains on oxygen at 2 L. Less bronchus spastic and wheezing compared to yesterday. The repeat chest x-ray shows a tiny right-sided pneumothorax which is probably in the order of 5-10%. The patient otherwise is feeling well. No specific complaints. Sodium is at 1:30, potassium is at 4.1, BUN is at 38 with a creatinine of 0.9. The white cell count of 15.4 with a hemoglobin of 11.4. He is using the [employer] spirometer. I have him on a combination of bronchodilators with DuoNeb updrafts 4 times a day, he is also on IV Solu-Medrol 40 mg every 8 hours. Tolerating his diet. No nausea or emesis. No issues with pain. 07/30/2023, the patient is doing extremely well. Less short of breath and less bronchospastic and wheezing compared to yesterday. The chest x-ray continues to show a tiny right apical pneumothorax. The patient is having some fullness in his stomach probably related to lack of bowel movement with activity. For the most part, his condition stable. Oxygen is improved and the patient is currently on room air oxygen. The patient's sodium levels of 131. Potassium is at 4.1. BUN is a 52 with a creatinine of 1 and WBC count at 16.2 with a hemoglobin of 12. He is using the [employer] spirometer. No confusion. No altered mentation. He remains on bronchodilators. He remains on IV Solu- Medrol. Reevaluated today on 07/31/2023, patient seems to be doing well, relatively asymptomatic, he is on room air, O2 sats is 94%. Chest x-ray continues to show at least a 20% pneumothorax on the right side. Surprisingly the patient is not symptomatic. Patient is now postoperative day #7. W see count of 17.6 hemoglobin is 12.4 lites are normal except for slightly low sodium of 131, BUN is 52 creatinine is 0.98 BNP level 4140 Patient was reevaluated today on 08/01/2023, doing well, asymptomatic, on room air, patient is not in any form of distress. Be considered for possible discharge planning today. Chest x-ray continues to show small pneumothorax. However clinically does not seem to be significant and not compromising his pulmonary status. And it is not getting any larger Objective - Vital Signs Vital signs: Vital Signs Temp 97.7 F 08/01/23 12:00 Pulse 67 08/01/23 12:00 Resp 20 08/01/23 12:00 BP 179/78 08/01/23 12:00 Pulse Ox 94 L 08/01/23 12:00 FiO2 50 07/28/23 02:51 Intake & Output 07/31/23 08/01/23 08/01/23 18:59 06:59 18:59 Intake Total 780 480 110 Balance 780 480 110 Weight 76.1 kg 75.6 kg Intake: Oral 780 480 110 Other: Voiding Method Toilet Toilet Toilet Urinal Urinal Urinal # Voids 2 ABP, PAP, CO, CI - Last Documented Arterial Blood Pressure 124/51 - Exam Physical Exam: Revealed a 87-year-old white male in no distress, on room air Head: Atraumatic, normocephalic. HEENT:[Neck is supple.] [No neck masses.] [No thyromegaly.] [No JVD.] Chest: [Clear throughout, no crackles, no rhonchi, no wheezes.] Cardiac Exam: [Normal S1 and S2, no S3 gallop, no murmur.] Abdomen: [Soft, nontender, no megaly, no rebound, no guarding, normal bowel sounds.] Extremities: [No clubbing, no edema, no cyanosis.] Neurological Exam: [No focal neurologic deficit.] Alert and oriented 3 Psychiatric: Normal mood affect and normal. Skin: No rash - Labs CBC & Chem 7: 08/01/23 09:37 08/01/23 09:37 Labs: Abnormal Lab Results - Last 24 Hours (Table) 07/31/23 07/31/23 08/01/23 Range/Units 12:46 12:46 09:37 WBC 17.6 H 16.9 H (3.8-10.6) k/uL RBC 4.27 L (4.30-5.90) m/uL Hgb 12.4 L 12.3 L (13.0-17.5) gm/dL Hct 37.5 L 38.0 L (39.0-53.0) % Plt Count 506 H (150-450) k/uL Sodium 131 L (137-145) mmol/L Chloride 95 L (98-107) mmol/L BUN 52 H (9-20) mg/dL Glucose 127 H (74-99) mg/dL Calcium (8.4-10.2) mg/dL 08/01/23 Range/Units 09:37 WBC (3.8-10.6) k/uL RBC (4.30-5.90) m/uL Hgb (13.0-17.5) gm/dL Hct (39.0-53.0) % Plt Count (150-450) k/uL Sodium 133 L (137-145) mmol/L Chloride 95 L (98-107) mmol/L BUN 51 H (9-20) mg/dL Glucose 108 H (74-99) mg/dL Calcium 8.3 L (8.4-10.2) mg/dL Assessment and Plan Assessment: Impression: Lung cancer, adenocarcinoma, status post bronchoscopy, robotic-assisted thoracoscopic surgery with right upper lobectomy History of CAD with previous FL and PCI History of hypertension Dyslipidemia Ex-smoker COPD, 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
[2023-08-01] MEDS: ACETAMINOPHEN TAB 325 MG TAB PO PRN (14:29)
[2023-08-01] MEDS ORDERED: amLODIPine 5 MG TAB PO SCH (21:00)
--- NOTE | 2023-08-03 07:39 | CDI ---
Documentation Clarification Form Date: 08/03/2023 From: Delma Ernandez Admit Date: 07/24/2023 05:48:00 AM Patient Name: Elijah Ochoa Visit Number: [id number] Discharge Date: 08/01/2023 02:36:00 PM ATTENTION: The Clinical Documentation Specialists (CDI) and [facility] Coding Staff appreciate your assistance in clarifying documentation. Please respond to the clarification below the line at the bottom and electronically sign. The CDI & [facility] Coding staff will review the response and follow-up if needed. Please note: Queries are made part of the Legal Health Record. If you have any questions, please contact the author of this message via ITS. Dr. Sancho Wood, Your patient has the documented diagnosis of unspecified CHF in your 07/28 progress note. Additional information regarding the type & acuity of CHF is requested. History/Risk Factors: RUL lung Ca, SIADH Clinical Indicators: Return to ICU. CXR possible pulmonary edema and was given one dose of 40 mg Lasix IV. Still slightly hypoxic currently on oxygen. Has lateral expiratory wheezing. Steroids was given in addition to the Lasix IV. 07/28 VS/Pulse OX: P 90, R 31, O2 Sat 97 NC 2 & 92 venti mask 15 07/28 BNP: 4140 07/25 Echocardiogram Results: Left ventricular ejection fraction is estimated at 55-60%. 07/27 Chest X Ray: Ongoing mild pulmonary vascular congestion. Treatment: IV Lasix continued thru 07/30 In your professional opinion, can you please clarify the [acuity and type] of CHF if known? [ ] Acute Systolic Heart Failure (reduced EF) [ ] Acute Diastolic Heart Failure (preserved EF) [ ] Acute Systolic & Diastolic Heart Failure [ ] Other, please specify [ x ] Unable to determine MTDD
--- NOTE | 2023-08-04 14:26 | CDI ---
Documentation Clarification Form Date: 08/04/2023 11:38:46 AM From: Sana Mondragon RN, CCDS Email: [email or web address] Admit Date: 07/24/2023 05:48:00 AM Patient Name: Elijah Ochoa Visit Number: [id number] Discharge Date: 08/01/2023 02:36:00 PM ATTENTION: The Clinical Documentation Specialists (CDI) and [facility] Coding Staff appreciate your assistance in clarifying documentation. Please respond to the clarification below the line at the bottom and electronically sign. The CDI & [facility] Coding staff will review the response and follow-up if needed. Please note: Queries are made part of the Legal Health Record. If you have any questions, please contact the author of this message via ITS. Dr. Ricky Baer Postoperative bradycardia unexpected is documented in the progress notes. Additional clarification regarding postoperative bradycardia is requested. 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 This revealed a lung nodule. Further work-up including PET/CT and biopsy of the 5.5cm nodule revealed adenocarcinoma without evidence of metastatic disease. He is very functional with good PFTS. Lobectomy was recommended. 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 07/25 Cardiology consult: "The patient is bradycardic with heart rate in the 50s and 60s. Currently he is not on any AV vic chastity agents. Status post robotic surgery as described above. Asymptomatic bradycardia. AV block, differential diagnosis is type I or type II second-degree AV block. 07/25 Pulmonary: "Sinus bradycardia versus junctional rhythm, we'll obtain a 12- lead EKG." 07/26 CTS: "Postoperative bradycardia, resolved." Treatment: stop AV vic chastity agents; stop Amlodipine; Cardiology consult as above. Please clarify if postoperative bradycardia unexpected is a complication of the surgical procedure? [ ] Yes [x ] No [ ] Other, please specify [ ] Unable to determine MTDD
== END 2023-08-01 14:36 | disposition home health service (06) | DRG 163 ==
LOC: 2ORMAIN 05:48 → 2SICU 13:36 → 3SCARD 07-26 22:12 → 2SICU 07-28 02:48 → 3SCARD 07-30 16:31
PROVIDERS: ADMIT Thoracic Surgery (Cardiothoracic Vascular Surgery); ATTEND Thoracic Surgery (Cardiothoracic Vascular Surgery)
PROC: 0BJ08ZZ Inspection of Tracheobronchial Tree, Via Natural or Artificial Opening Endoscopic (ICD-10-PCS; principal; 2023-07-24 07:30)
PROC: 8E0W4CZ Robotic Assisted Procedure of Trunk Region, Percutaneous Endoscopic Approach (ICD-10-PCS; principal; 2023-07-24 07:30)
PROC: 0BTC4ZZ Resection of Right Upper Lung Lobe, Percutaneous Endoscopic Approach (ICD-10-PCS; principal; 2023-07-24 07:30)
PROC: 07T74ZZ Resection of Thorax Lymphatic, Percutaneous Endoscopic Approach (ICD-10-PCS; principal; 2023-07-24 07:30)
DX: C34.11 Malignant neoplasm of upper lobe, right bronchus or lung (principal); J96.01 Acute respiratory failure with hypoxia; N17.0 Acute kidney failure with tubular necrosis; E22.2 Syndrome of inappropriate secretion of antidiuretic hormone; E87.20 Acidosis, unspecified; J94.8 Other specified pleural conditions; J93.83 Other pneumothorax; J93.82 Other air leak; J44.1 Chronic obstructive pulmonary disease with (acute) exacerbation; I27.20 Pulmonary hypertension, unspecified; J98.2 Interstitial emphysema; I95.9 Hypotension, unspecified; I11.0 Hypertensive heart disease with heart failure; I50.9 Heart failure, unspecified; I73.9 Peripheral vascular disease, unspecified; M06.9 Rheumatoid arthritis, unspecified; R00.1 Bradycardia, unspecified; J98.01 Acute bronchospasm; E87.5 Hyperkalemia; E78.5 Hyperlipidemia, unspecified; T38.0X5A Adverse effect of glucocorticoids and synthetic analogues, initial encounter; I25.10 Atherosclerotic heart disease of native coronary artery without angina pectoris; I25.84 Coronary atherosclerosis due to calcified coronary lesion; N40.0 Benign prostatic hyperplasia without lower urinary tract symptoms; I25.2 Old myocardial infarction; H91.93 Unspecified hearing loss, bilateral; R76.11 Nonspecific reaction to tuberculin skin test without active tuberculosis; Z77.29 Contact with and (suspected) exposure to other hazardous substances; Z20.1 Contact with and (suspected) exposure to tuberculosis; Z79.82 Long term (current) use of aspirin; Z79.899 Other long term (current) drug therapy; Z95.5 Presence of coronary angioplasty implant and graft; Z87.891 Personal history of nicotine dependence; Z85.828 Personal history of other malignant neoplasm of skin
CPT/HCPCS: 36600; 64999; 71045; 71046; 80048; 80053; 81001; 82805; 83735; 83880; 83930; 83935; 84100; 84295; 84300; 84443; 85025; 85027; 86850; 86900; 86901; 86920; 88305; 88309; 88313; 93005; 93306; 94640; 94667; 94668; 94760

== ENCOUNTER 2023-08-17 14:32 | Observation (INO) | payer MEDICARE ==
[2023-08-17 15:20] LABS: Basophils % (A) 0 %; Eosinophils # (A) 0.2 k/uL (0-0.7); Eosinophils % (A) 2 %; HCT 35.4 % (39.0-53.0); HGB 11.9 gm/dL (13.0-17.5); Lymphocytes # (A) 1.5 k/uL (1.0-4.8); Lymphocytes % (A) 16 %; MCHC 33.6 g/dL (31.0-37.0); MCV 86.2 fL (80.0-100.0); Mean Platelet Volume 6.8; Monocytes # (A) 0.7 k/uL (0-1.0); Monocytes % (A) 8 %; Neutrophils # (A) 6.5 k/uL (1.3-7.7); Neutrophils % (A) 72 %; Platelet Count 423 k/uL (150-450); RBC 4.11 m/uL (4.30-5.90); RDW 12.9 % (11.5-15.5)
[2023-08-17 15:34] LABS: ALT 25 U/L (4-49); AST 21 U/L (17-59); African American GFR (CKD) >90 (>60 ml/min/1.73 sqM); Albumin 3.2 g/dL (3.5-5.0); Alkaline Phosphatase 116 U/L (38-126); Anion Gap 10 mmol/L; Blood Urea Nitrogen 20 mg/dL (9-20); Calcium 8.8 mg/dL (8.4-10.2); Carbon Dioxide 24 mmol/L (22-30); Chloride 94 mmol/L (98-107); Glucose 132 mg/dL (74-99); Magnesium 2.3 mg/dL (1.6-2.3); Non-African American GFR(CKD) 81 (>60 ml/min/1.73 sqM); Phosphorus 3.3 mg/dL (2.5-4.5); Potassium 5.6 mmol/L (3.5-5.1); Sodium 128 mmol/L (137-145); Total Bilirubin 0.5 mg/dL (0.2-1.3)
--- NOTE | 2023-08-17 15:38 | XR ---
EXAMINATION TYPE: XR chest 2V DATE OF EXAM: 08/17/2023 3:27 PM COMPARISON: Chest radiographs from 08/07/2023 TECHNIQUE: XR chest 2V Frontal and lateral views of the chest. CLINICAL INDICATION:Male, 87 years old with history of Weakness; FINDINGS: Lungs/Pleura: Resolution of right-sided pneumothorax. Trace right pleural effusion. Elevation of the right hemidiaphragm redemonstrated. Right perihilar airspace opacities. Pulmonary vascularity: Unremarkable. Heart/mediastinum: Cardiomediastinal silhouette is unremarkable. Atherosclerotic calcifications are seen in the aorta. Musculoskeletal: No acute osseous pathology. IMPRESSION: 1. Right perihilar airspace opacities concerning for pneumonia. 2. Trace right pleural effusion. 3. Resolution of previously seen right-sided pneumothorax.
[2023-08-17 15:45] LABS: INR 0.9 (<1.2); Partial Thromboplastin Time 27.7 sec (22.0-30.0); Prothrombin Time 10.4 sec (10.0-12.5)
--- NOTE | 2023-08-17 17:05 | CT ---
EXAMINATION TYPE: CT chest angio for PE CT DLP: 330 mGycm, Automated exposure control for dose reduction was used. DATE OF EXAM: 08/17/2023 4:41 PM COMPARISON: Pet/CT [id number], 06/08/2023. CLINICAL INDICATION:Male, 87 years old with history of Rule out PE; weakness with irregular heart rat e skin w/d heart rate irregular. sent in by home health rn. recent right upper lobe lung removal fr om ca TECHNIQUE/CONTRAST: CTA scan of the thorax is performed with IV Contrast, patient injected with 100 ml mL of Isovue 370, MIP images are created and reviewed these are created on a separate workstation.. FINDINGS: Pulmonary Artery: There is no evidence for a filling defect within the pulmonary vasculature to sugge st acute pulmonary embolism. The pulmonary artery is of normal size. Lungs/Pleura: Small right upper lung pneumothorax with layering fluid. In the right lower lung pleura l space there is mixed air and fluid collection. There is mild intralobular septal thickening. No lisset dence of left-sided pneumothorax or pleural effusion or focal consolidation. Airway: Large airways are patent. Heart: Heart is within normal limits for size. Vasculature: Moderate atherosclerotic calcifications are present throughout the aorta and its branche s. Mediastinum: No gross evidence of adenopathy. No lymphadenopathy within the mediastinum. There is andreina e fullness the right pulmonary hilum with soft tissue. Not significantly changed from PET/CT 3. Musculoskeletal: Moderate degenerative disc disease changes are present throughout the thoracolumbar spine. Soft Tissues: Unremarkable. Lower neck: No significant findings. Upper Abdomen: No significant findings. IMPRESSION: 1. No evidence of pulmonary embolism. 2. Small right upper lung pneumothorax. There is a right pleural fluid collection with multiple foci of gas felt to be outside of the lung parenchyma correlate for empyema/abscess given recent surgery. 3. Mild pulmonary edema correlate with serum markers. 4. Fullness of the right pulmonary hilum not significantly changed from prior PET/CT. There is mildly elevated FDG activity in this region. Attn on follow-up PET/CT.
--- NOTE | 2023-08-17 18:19 | ED ---
Weakness HPI - General Chief complaint: Weakness Stated complaint: dizzy Time Seen by Provider: 08/17/23 17:54 Source: patient, family, RN notes reviewed, old records reviewed Mode of arrival: wheelchair Limitations: no limitations - History of Present Illness Initial comments: This is a 87-year-old male here today. Patient presents today for evaluation of this generalized not feeling well, some weakness. Patient visiting nurse come to his house today and she noticed significant alterations in his blood pressure from high to low. Patient did feel some lightheadedness during these changes. Patient had a pulse ox on his finger and he noticed a heart rate in the 100s, he also admitted to mild palpitations at that time but no chest pain no shortness of breath no fevers no other complaints MD Complaint: generalized weakness, lack of energy, difficulty walking -: days(s) Location: generalized Severity: moderate Severity scale (1-10): 4 Quality: aching Consistency: constant Improves with: none Worsens with: none Context: history of similar Associated Symptoms: nausea/vomiting - Related Data Home Medications Medication Instructions Recorded Confirmed Aspirin 81 mg PO BID 02/26/14 08/17/23 Cholecalciferol [Vitamin D3 (25 50 mcg PO DAILY 08/19/22 08/17/23 Mcg = 1000 Iu)] Cyanocobalamin [Vitamin B-12] 500 mcg PO DAILY 08/19/22 08/17/23 Force Factor Prostate Suppl 1 dose PO DAILY 08/19/22 08/17/23 Multivit-Min/Folic/Vit K/Lycop 1 tab PO DAILY 08/19/22 08/17/23 [Men's Multivitamin Tablet] [place]-3/Dha/Epa/Fish Oil [Fish Oil 1 cap PO DAILY 08/19/22 08/17/23 1,000 mg Softgel] amLODIPine [Norvasc] 5 mg PO HS 08/19/22 08/17/23 Atorvastatin [Lipitor] 10 mg PO HS 06/05/23 08/17/23 diphenhydrAMINE [Benadryl] 25 mg PO HS PRN 07/24/23 08/17/23 Budesonide-Formot 160-4.5 Mcg 2 puff INHALATION RT-BID 08/17/23 08/17/23 [Symbicort 160-4.5 Mcg Inhaler] Dorzolamide HCl/Pf [Dorzolamide 2% 1 drop LEFT EYE BID 08/17/23 08/17/23 Eye Drop] HYDROcodone/APAP 5-325MG [[place] 1 tab PO Q6HR PRN 08/17/23 08/17/23 5-325] Ipratropium-Albuterol Nebulize 3 ml INHALATION RT-QID 08/17/23 08/17/23 [Duoneb 0.5 mg-3 mg/3 ml Soln] Latanoprost [Latanoprost 0.005%] 1 drop BOTH EYES HS 08/17/23 08/17/23 Losartan Potassium 100 mg PO DAILY 08/17/23 08/17/23 Naproxen Sodium [Aleve] 220 mg PO BID PRN 08/17/23 08/17/23 Sennosides-Docusate Sodium 2 tab PO HS PRN 08/17/23 08/17/23 [Senokot-S] Previous Rx's Medication Instructions Recorded Acetaminophen Tab [Tylenol] 650 mg PO Q4HR PRN tab 08/01/23 guaiFENesin [Mucinex] 1,200 mg PO Q12HR PRN tab 08/01/23 hydrALAZINE HCL [Apresoline] 50 mg PO BID #60 tab 08/01/23 Allergies Allergy/AdvReac Type Severity Reaction Status Date / Time No Known Allergies Allergy Verified 07/24/23 06:22 Review of Systems ROS Statement: Those systems with pertinent positive or pertinent negative responses have been documented in the HPI. ROS Other: All systems not noted in ROS Statement are negative. Past Medical History Past Medical History: Coronary Artery Disease (CAD), Cancer, Hearing Disorder / Deafness, Hyperlipidemia, Hypertension, Myocardial Infarction (VT), Prostate Disorder, Rheumatoid Arthritis (RA), Vascular Disorder Additional Past Medical History / Comment(s): Current right lung cancer. Hx skin cancer. PAD. BPH. Deaf left ear, hard of hearing in right ear. Pain with walking. positive PPD Last Myocardial Infarction Date:: 1999 History of Any Multi-Drug Resistant Organisms: None Reported Past Surgical History: Heart Catheterization With Stent, Orthopedic Surgery Additional Past Surgical History / Comment(s): R&L KNEE SURG., LT. 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 right leg to improve circulation.right upper lung emoval Past Anesthesia/Blood Transfusion Reactions: No Reported Reaction Date of Last Stent Placement:: 1999 Past Psychological History: No Psychological Hx Reported Smoking Status: Former smoker Past Alcohol Use History: Occasional Past Drug Use History: None Reported - Past Family History Sister(s) Family Medical History: Cancer Additional Family Medical History / Comment(s): 3 sisters had cancer. General Exam Limitations: no limitations General appearance: alert, in no apparent distress, anxious Head exam: Present: atraumatic, normocephalic, normal inspection Eye exam: Present: normal appearance, PERRL, EOMI. Absent: scleral icterus, conjunctival injection, periorbital swelling ENT exam: Present: normal exam, mucous membranes moist Neck exam: Present: normal inspection. Absent: tenderness, meningismus, lymphadenopathy Respiratory exam: Present: normal lung sounds bilaterally. Absent: respiratory distress, wheezes, rales, rhonchi, stridor Cardiovascular Exam: Present: regular rate, normal rhythm, normal heart sounds. Absent: systolic murmur, diastolic murmur, rubs, gallop, clicks GI/Abdominal exam: Present: soft, normal bowel sounds. Absent: distended, tenderness, guarding, rebound, rigid Extremities exam: Present: normal inspection, full ROM, normal capillary refill. Absent: tenderness, pedal edema, joint swelling, calf tenderness Back exam: Present: normal inspection Neurological exam: Present: alert, oriented X3, CN II-XII intact Psychiatric exam: Present: normal affect, normal mood Skin exam: Present: warm, dry, intact, normal color. Absent: rash Course Vital Signs 08/17/23 08/17/23 08/17/23 14:51 17:45 18:18 Temperature 98 F 97.8 F 97.9 F Pulse Rate 52 L 56 L 57 L Respiratory 20 19 19 Rate Blood Pressure 133/65 155/64 150/73 O2 Sat by Pulse 97 97 98 Oximetry - Reevaluation(s) Reevaluation #1: 08/17/23 22:09 Medical record is reviewed Reevaluation #2: 08/17/23 22:09 Patient does have elevation of blood pressure and a couple low blood pressures here in the ER Patient remains bradycardic Reevaluation #3: 08/17/23 22:09 Patient informed results questions answered Reevaluation #4: 08/17/23 22:09 Was pt. sent in by a medical professional or institution (ALEJANDRO Henley, DIRECTOR GOVERNMENT, urgent care, hospital, or skilled nursing...) When possible be specific @ -no Did you speak to anyone other than the patient for history (EMS, parent, family, police, friend...)? What history was obtained from this source @ -no Did you review nursing and triage notes (agree or disagree)? Why? @ -agree Are old charts reviewed (outside hosp., previous admission, EMS record, old EKG, old radiological studies, urgent care reports/EKG's, skilled nursing records)? Report findings @ -yes Differential Diagnosis (chest pain, altered mental status, abdominal pain women, abdominal pain men, vaginal bleeding, weakness, fever, dyspnea, syncope, headache, dizziness, GI bleed, back pain, seizure, CVA, palpatations, mental health, musculoskeletal)? @ -prior EKG interpreted by me (3pts min.). @ -yes X-rays interpreted by me (1pt min.). @ -yes CT interpreted by me (1pt min.). @ -no U/S interpreted by me (1pt. min.). @ -no What testing was considered but not performed or refused? (CT, X-rays, U/S, labs)? Why? @ -none What meds were considered but not given or refused? Why? @ -none Did you discuss the management of the patient with other professionals (professionals i.e. ALEJANDRO Henley, DIRECTOR GOVERNMENT, lab, RT, psych nurse, social economist, food preparation kitchen aide, teacher, community services officer, case therapist)? Give summary @ -no Was smoking cessation discussed for >3mins.? @ -no Was critical care preformed (if so, how long)? @ -no Were there social determinants of health that impacted care today? How? (Homeles sness, low income, unemployed, alcoholism, drug addiction, transportation, low edu. Level, literacy, decrease access to med. care, fdc, rehab)? @ -none Was there de-escalation of care discussed even if they declined (Discuss DNR or withdrawal of care, Hospice)? DNR status @ -no What co-morbidities impacted this encounter? (DM, HTN, Smoking, COPD, CAD, Cancer, CVA, ARF, Chemo, Hep., AIDS, mental health diagnosis, sleep apnea, morbid obesity)? @ -none Was patient admitted / discharged? Hospital course, mention meds given and route, prescriptions, significant lab abnormalities, going to OR and other pertinent info. @ - Undiagnosed new problem with uncertain prognosis? @ -no Drug Therapy requiring intensive monitoring for toxicity (Heparin, Nitro, Insulin, Cardizem)? @ -no Were any procedures done? @ -no Diagnosis/symptom? @ - Acute, or Chronic, or Acute on Chronic? @ -Acute Uncomplicated (without systemic symptoms) or Complicated (systemic symptoms)? @ -Complicated Side effects of treatment? @ -no Exacerbation, Progression, or Severe Exacerbation? @ -exacerbation Poses a threat to life or bodily function? How? (Chest pain, USA, VT, pneumonia, PE, COPD, DKA, ARF, appy, cholecystitis, CVA, Diverticulitis, Homicidal, Suicidal, threat to staff... and all critical care pts) @ -yes Reevaluation #5: 08/17/23 22:09 Differential Palpitations Ventricular arrhythmias, atrial arrhythmias, myocardial infarction, anemia, thyrotoxicosis, electrolyte imbalance, hypokalemia, pulmonary embolism, pulmonary disease, drugs, alcohol, anxiety, stress.... This is not meant to be an all-inclusive list. - Consultations Consultation #1: Spoke with sound who agreed admit this patient EKG Findings - EKG Comments: EKG Findings:: EKG is A. fib 58 QRS 109 QTC 414 Medical Decision Making - Medical Decision Making 87 male to the emergency department for evaluation today. Patient presents today evaluation of weakness. Patient does have labile blood pressure here at t imes very high at times very low remains bradycardic throughout ER stay - Lab Data Result diagrams: 08/17/23 14:57 08/17/23 14:57 Lab Results 08/17/23 08/17/23 08/17/23 Range/Units 14:57 14:57 14:57 WBC 9.0 (3.8-10.6) k/uL RBC 4.11 L (4.30-5.90) m/uL Hgb 11.9 L (13.0-17.5) gm/dL Hct 35.4 L (39.0-53.0) % MCV 86.2 (80.0-100.0) fL MCH 29.0 (25.0-35.0) pg MCHC 33.6 (31.0-37.0) g/dL RDW 12.9 (11.5-15.5) % Plt Count 423 (150-450) k/uL MPV 6.8 Neutrophils % 72 % Lymphocytes % 16 % Monocytes % 8 % Eosinophils % 2 % Basophils % 0 % Neutrophils # 6.5 (1.3-7.7) k/uL Lymphocytes # 1.5 (1.0-4.8) k/uL Monocytes # 0.7 (0-1.0) k/uL Eosinophils # 0.2 (0-0.7) k/uL Basophils # 0.0 (0-0.2) k/uL PT 10.4 (10.0-12.5) sec INR 0.9 (<1.2) APTT 27.7 (22.0-30.0) sec D-Dimer 5.42 H (<0.60) mg/L FEU Sodium 128 L (137-145) mmol/L Potassium 5.6 H (3.5-5.1) mmol/L Chloride 94 L (98-107) mmol/L Carbon Dioxide 24 (22-30) mmol/L Anion Gap 10 mmol/L BUN 20 (9-20) mg/dL Creatinine 0.80 (0.66-1.25) mg/dL Est GFR (CKD-EPI)AfAm >90 (>60 ml/min/1.73 sqM) Est GFR (CKD-EPI)NonAf 81 (>60 ml/min/1.73 sqM) Glucose 132 H (74-99) mg/dL Calcium 8.8 (8.4-10.2) mg/dL Phosphorus 3.3 (2.5-4.5) mg/dL Magnesium 2.3 (1.6-2.3) mg/dL Total Bilirubin 0.5 (0.2-1.3) mg/dL AST 21 (17-59) U/L ALT 25 (4-49) U/L Alkaline Phosphatase 116 (38-126) U/L Troponin I (0.000-0.034) ng/mL Total Protein 6.0 L (6.3-8.2) g/dL Albumin 3.2 L (3.5-5.0) g/dL 08/17/23 Range/Units 14:57 WBC (3.8-10.6) k/uL RBC (4.30-5.90) m/uL Hgb (13.0-17.5) gm/dL Hct (39.0-53.0) % MCV (80.0-100.0) fL MCH (25.0-35.0) pg MCHC (31.0-37.0) g/dL RDW (11.5-15.5) % Plt Count (150-450) k/uL MPV Neutrophils % % Lymphocytes % % Monocytes % % Eosinophils % % Basophils % % Neutrophils # (1.3-7.7) k/uL Lymphocytes # (1.0-4.8) k/uL Monocytes # (0-1.0) k/uL Eosinophils # (0-0.7) k/uL Basophils # (0-0.2) k/uL PT (10.0-12.5) sec INR (<1.2) APTT (22.0-30.0) sec D-Dimer (<0.60) mg/L FEU Sodium (137-145) mmol/L Potassium (3.5-5.1) mmol/L Chloride (98-107) mmol/L Carbon Dioxide (22-30) mmol/L Anion Gap mmol/L BUN (9-20) mg/dL Creatinine (0.66-1.25) mg/dL Est GFR (CKD-EPI)AfAm (>60 ml/min/1.73 sqM) Est GFR (CKD-EPI)NonAf (>60 ml/min/1.73 sqM) Glucose (74-99) mg/dL Calcium (8.4-10.2) mg/dL Phosphorus (2.5-4.5) mg/dL Magnesium (1.6-2.3) mg/dL Total Bilirubin (0.2-1.3) mg/dL AST (17-59) U/L ALT (4-49) U/L Alkaline Phosphatase (38-126) U/L Troponin I <0.012 (0.000-0.034) ng/mL Total Protein (6.3-8.2) g/dL Albumin (3.5-5.0) g/dL - Radiology Data Radiology results: report reviewed (Chest x-ray CTA chest does show mild small persistent pneumothorax, postop, no acute changes), image reviewed Disposition Clinical Impression: Dehydration, Bradycardia, Hypertension, Hypotension, Postoperative pain, Weakness, Tachycardia Disposition: ADMITTED IP TO THIS HOSP Condition: Serious Is patient prescribed a controlled substance at d/c from ED?: No Time of Disposition: 18:00
[2023-08-17] MEDS ORDERED: NALOXONE 0.4 MG/ML 1 ML VIAL IV PRN (19:09)
[2023-08-17] MEDS ORDERED: ONDANSETRON 4 MG/2 ML VIAL IVP PRN (19:09)
[2023-08-17] MEDS ORDERED: HYDROcodone/APAP 5-325MG 1 EACH TAB PO PRN (19:24)
[2023-08-17] MEDS: SODIUM CHLORIDE 0.9% 1,000 ML IV SCH (20:16)
[2023-08-18] MEDS ORDERED: HYDROcodone/APAP 5-325MG 1 EACH TAB PO PRN (01:35)
--- NOTE | 2023-08-18 01:39 | P.HPIM ---
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 Patient reports that over the past 2 days he's been feeling significantly more weak than usual throughout. A visiting nurse came to see him as scheduled and noticed that his blood pressure although slightly elevated at 160 was subsequently low at 90s systolic at multiple readings. The patient also reported feeling somewhat lightheaded at the time. At the time of interview he reports feeling somewhat better. Denied experiencing chest discomfort, shortness of breath, nausea, vomiting, abdominal pain, diaphoresis. Also denied fever, chills, cough, diarrhea. In the emergency room with chest CTA revealed a small right upper lung pneumothorax with possible empyema. Vital signs in the emergency room upon arrival were BP 133/65, pulse 52, temp 98F, and SpO2 97% on room air. [facility] evaluation was remarkable for hemoglobin 11.9, sodium 128, potassium 5.6, troponin less than 0.012, and d-dimer 5.42. ED documentation reviewed and case discussed with ED provider. Review of systems: Pertinent positives and negatives as discussed in HPI, a complete review of systems was performed and all other systems are negative. Physical examination: Vital signs reviewed General: non toxic, no distress, appears at stated age, normal weight Derm: no unusual rashes/lesions, warm Head: atraumatic, normocephalic, symmetric Eyes: EOMI, no lid lag, anicteric sclera, pupils equal round reactive to light ENT: Nose and ears atraumatic Neck: No cervical lymphadenopathy, trachea midline, supple Mouth: no lip lesion, mucus membranes moist Cardiovascular: S1S2 reg, no murmur, positive dorsalis pedis pulse bilateral, no edema Lungs: CTA bilateral, no rhonchi, no rales, no accessory muscle use, right lateral chest wall incisions healing well Abdominal: soft, nontender to palpation, no guarding Ext: muscle strength 4 out of 5 in all 4 extremities grossly, no gross muscle atrophy, no contractures, Neuro: CN II-XI grossly intact, no gross focal neuro deficits Psych: Alert, oriented, appropriate affect Assessment: Right upper lobe small pneumothorax with possible abscess/empyema Generalized weakness Hypochloremic hyponatremia (patient experienced hyponatremia during recent hospitalization, at baseline) Hyperkalemia Imaging: In the emergency room with chest CTA revealed a small right upper lung pneumo thorax with possible empyema. Data Review: Vital signs in the emergency room upon arrival were BP 133/65, pulse 52, temp 98F, and SpO2 97% on room air. Laboratory evaluation was remarkable for hemoglobin 11.9, sodium 128, potassium 5.6, troponin less than 0.012, and d-dim er 5.42. Plan: Pulmonary consult PT consult Continue gentle IV hydration with normal saline at 75 mL/h Continue with home medications DVT prophylaxis: Lovenox Subq The patient is admitted with an anticipated less than 2 midnight stay for evaluation of hypotension CODE STATUS: Full Code Discussed with: Patient Anticipated discharge place: Home Past Medical History Past Medical History: Coronary Artery Disease (CAD), Cancer, Hearing Disorder / Deafness, Hyperlipidemia, Hypertension, Myocardial Infarction (ME), Prostate Disorder, Rheumatoid Arthritis (RA), Vascular Disorder Additional Past Medical History / Comment(s): Current right lung cancer. Hx skin cancer. PAD. BPH. Deaf left ear, hard of hearing in right ear. Pain with walking. positive PPD Last Myocardial Infarction Date:: 1999 History of Any Multi-Drug Resistant Organisms: None Reported Past Surgical History: Heart Catheterization With Stent, Orthopedic Surgery Additional Past Surgical History / Comment(s): R&L KNEE SURG., LT. 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 right leg to improve circulation.right upper lung emoval Past Anesthesia/Blood Transfusion Reactions: No Reported Reaction Date of Last Stent Placement:: 1999 Past Psychological History: No Psychological Hx Reported Smoking Status: Former smoker Past Alcohol Use History: Occasional Past Drug Use History: None Reported - Past Family History Sister(s) Family Medical History: Cancer Additional Family Medical History / Comment(s): 3 sisters had cancer. Medications and Allergies Home Medications Medication Instructions Recorded Confirmed Type Aspirin 81 mg PO BID 02/26/14 08/17/23 History Cholecalciferol [Vitamin D3 (25 50 mcg PO DAILY 08/19/22 08/17/23 History Mcg = 1000 Iu)] Cyanocobalamin [Vitamin B-12] 500 mcg PO DAILY 08/19/22 08/17/23 History Force Factor Prostate Suppl 1 dose PO DAILY 08/19/22 08/17/23 History Multivit-Min/Folic/Vit K/Lycop 1 tab PO DAILY 08/19/22 08/17/23 History [Men's Multivitamin Tablet] [place]-3/Dha/Epa/Fish Oil [Fish Oil 1 cap PO DAILY 08/19/22 08/17/23 History 1,000 mg Softgel] amLODIPine [Norvasc] 5 mg PO HS 08/19/22 08/17/23 History Atorvastatin [Lipitor] 10 mg PO HS 06/05/23 08/17/23 History diphenhydrAMINE [Benadryl] 25 mg PO HS PRN 07/24/23 08/17/23 History Acetaminophen Tab [Tylenol] 650 mg PO Q4HR PRN tab 08/01/23 08/17/23 Rx guaiFENesin [Mucinex] 1,200 mg PO Q12HR PRN tab 08/01/23 08/17/23 Rx hydrALAZINE HCL [Apresoline] 50 mg PO BID #60 tab 08/01/23 08/17/23 Rx Budesonide-Formot 160-4.5 Mcg 2 puff INHALATION RT-BID 08/17/23 08/17/23 History [Symbicort 160-4.5 Mcg Inhaler] Dorzolamide HCl/Pf [Dorzolamide 2% 1 drop LEFT EYE BID 08/17/23 08/17/23 History Eye Drop] HYDROcodone/APAP 5-325MG [[place] 1 tab PO Q6HR PRN 08/17/23 08/17/23 History 5-325] Ipratropium-Albuterol Nebulize 3 ml INHALATION RT-QID 08/17/23 08/17/23 History [Duoneb 0.5 mg-3 mg/3 ml Soln] Latanoprost [Latanoprost 0.005%] 1 drop BOTH EYES HS 08/17/23 08/17/23 History Losartan Potassium 100 mg PO DAILY 08/17/23 08/17/23 History Naproxen Sodium [Aleve] 220 mg PO BID PRN 08/17/23 08/17/23 History Sennosides-Docusate Sodium 2 tab PO HS PRN 10/26/23 10/26/23 History [Senokot-S] Allergies Allergy/AdvReac Type Severity Reaction Status Date / Time No Known Allergies Allergy Verified 07/24/23 06:22 Physical Exam Vitals: Vital Signs Temp Pulse Resp BP Pulse Ox 08/18/23 00:00 60 16 134/71 97 08/17/23 20:00 72 16 138/86 98 08/17/23 18:18 97.9 F 57 L 19 150/73 98 08/17/23 17:45 97.8 F 56 L 19 155/64 97 08/17/23 14:51 98 F 52 L 20 133/65 97 Intake and Output 08/17/23 08/17/23 08/18/23 14:59 22:59 06:59 Other: Weight 72.121 kg Results CBC & Chem 7: 08/17/23 14:57 08/17/23 14:57 Labs: Abnormal Lab Results - Last 24 Hours (Table) 08/17/23 08/17/23 08/17/23 Range/Units 14:57 14:57 14:57 RBC 4.11 L (4.30-5.90) m/uL Hgb 11.9 L (13.0-17.5) gm/dL Hct 35.4 L (39.0-53.0) % D-Dimer 5.42 H (<0.60) mg/L FEU Sodium 128 L (137-145) mmol/L Potassium 5.6 H (3.5-5.1) mmol/L Chloride 94 L (98-107) mmol/L Glucose 132 H (74-99) mg/dL Total Protein 6.0 L (6.3-8.2) g/dL Albumin 3.2 L (3.5-5.0) g/dL
[2023-08-18] MEDS ORDERED: CALCIUM GLUCONATE IN NACL 1 GM in SALINE 1 100ML.BAG IVPB ONE ×2 (02:15→04:00)
[2023-08-18] MEDS ORDERED: SODIUM POLYSTYRENE SULFONATE 15 GM/60 ML BOTTLE PO ONE ×2 (02:15→03:35)
[2023-08-18] MEDS ORDERED: CALCIUM CARBONATE 500 MG CHEWABLE PO PRN ×2 (04:00→22:39)
--- NOTE | 2023-08-18 07:36 | P.CNPUL ---
History of Present Illness Consult date: 08/18/23 Requesting physician: Juju Mena Reason for consult: other (S/p right robotic-assisted thorascopic surgery with right upper lobectomy) Chief complaint: Blood pressure fluctuations and lightheadedness History of present illness: I am seeing this patient in consultation today 08/18/2023 in the emergency room department after his home health nurse told him to come to the ER for blood pressure fluctuations and bradycardia. Patient is an 87-year-old white male with past medical history significant for recent right video-assisted thorascopic surgery with right upper lobectomy 07/24/2023 due to a right upper lobe mass. 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 Patient also has history of coronary artery disease with previous stent, hyperlipidemia, hypertension, peripheral arterial disease, BPH, among other things. Patient has been experiencing generalized weakness over the last couple days. Yesterday, a visiting nurse came to see him and found him to be borderline hypotensive with a low heart rate. He reported some lightheadedness. Patient was directed to the emergency room. Patient is currently sitting up in bed, on room air, in no acute distress. He denies any heart palpitations or syncopal events. He does admit some shortness of breath, especially on exertion. He has some right-sided chest pain that wraps around to the back. Denies fever, chills, cough. His thoracotomy site is clean and approximated. No drainage reported. Chest CTA redemonstrated a persistent small right upper lobe pneumothorax. There is a right pleural fluid collection with multiple foci of gas felt to be outside lung parenchyma suspicious for postsurgical empyema. Fullness of the right pulmonary hilar mass and unchanged from prior PET/CT scan. No pulmonary embolism identified. CBC shows no leukocytosis with a WBC count of 9, hemoglobin 11.9, hematocrit 35.4, platelets 423. BMP on arrival sodium 128, potassium 5.6, chloride 94, serum bicarb 24, BUN 20, creatinine 0.8, glucose 132. Troponin less than 0.012. EKG on arrival showed a junctional rhythm with premature beats and a rate of 58 bpm. No obvious acute ischemic changes. Currently, patient appears to be in normal sinus rhythm on bedside monitor and blood pressure is now slightly hypertensive. Home antihypertensive medications have been restarted. Patient is being admitted to the observation unit. Review of Systems REVIEW OF SYSTEMS: CONSTITUTIONAL: Denies any recent significant weight loss or weight gain. EYES: Denies change in vision. EARS, NOSE, MOUTH, THROAT: Denies headaches, denies sore throat. CARDIOVASCULAR: Denies palpitations or syncopal episodes. Admits lightheadedness RESPIRATORY: Denies cough, congestion or hemoptysis. Admits shortness of breath especially on exertion GASTROINTESTINAL: Denies change in appetite, abdominal pain, nausea and vomiting, or diarrhea GENITOURINARY: Denies hematuria, denies infections. MUSKULOSKELETAL: Denies pain, denies swelling. INTEGUMENTARY: Denies rash, denies eczema. NEUROLOGICAL: Denies recent memory loss, no recent seizure activity. PSYCHIATRIC: Denies anxiety, denies depression. HEMATOLOGIC/LYMPHATIC: Denies anemia, denies enlarged lymph node Past Medical History Past Medical History: Coronary Artery Disease (CAD), Cancer, Hearing Disorder / Deafness, Hyperlipidemia, Hypertension, Myocardial Infarction (PA), Prostate Disorder, Rheumatoid Arthritis (RA), Vascular Disorder Additional Past Medical History / Comment(s): Current right lung cancer. Hx skin cancer. PAD. BPH. Deaf left ear, hard of hearing in right ear. Pain with walking. positive PPD Last Myocardial Infarction Date:: 1999 History of Any Multi-Drug Resistant Organisms: None Reported Past Surgical History: Heart Catheterization With Stent, Orthopedic Surgery Additional Past Surgical History / Comment(s): R&L KNEE SURG., LT. 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 right leg to improve circulation.right upper lung emoval Past Anesthesia/Blood Transfusion Reactions: No Reported Reaction Date of Last Stent Placement:: 1999 Past Psychological History: No Psychological Hx Reported Smoking Status: Former smoker Past Alcohol Use History: Occasional Past Drug Use History: None Reported - Past Family History Sister(s) Family Medical History: Cancer Additional Family Medical History / Comment(s): 3 sisters had cancer. Medications and Allergies Home Medications Medication Instructions Recorded Confirmed Type Aspirin 81 mg PO BID 02/26/14 08/17/23 History Cholecalciferol [Vitamin D3 (25 50 mcg PO DAILY 08/19/22 08/17/23 History Mcg = 1000 Iu)] Cyanocobalamin [Vitamin B-12] 500 mcg PO DAILY 08/19/22 08/17/23 History Force Factor Prostate Suppl 1 dose PO DAILY 08/19/22 08/17/23 History Multivit-Min/Folic/Vit K/Lycop 1 tab PO DAILY 08/19/22 08/17/23 History [Men's Multivitamin Tablet] Hudson-3/Dha/Epa/Fish Oil [Fish Oil 1 cap PO DAILY 08/19/22 08/17/23 History 1,000 mg Softgel] amLODIPine [Norvasc] 5 mg PO HS 08/19/22 08/17/23 History Atorvastatin [Lipitor] 10 mg PO HS 06/05/23 08/17/23 History diphenhydrAMINE [Benadryl] 25 mg PO HS PRN 07/24/23 08/17/23 History Acetaminophen Tab [Tylenol] 650 mg PO Q4HR PRN tab 08/01/23 08/17/23 Rx guaiFENesin [Mucinex] 1,200 mg PO Q12HR PRN tab 08/01/23 08/17/23 Rx hydrALAZINE HCL [Apresoline] 50 mg PO BID #60 tab 08/01/23 08/17/23 Rx Budesonide-Formot 160-4.5 Mcg 2 puff INHALATION RT-BID 08/17/23 08/17/23 History [Symbicort 160-4.5 Mcg Inhaler] Dorzolamide HCl/Pf [Dorzolamide 2% 1 drop LEFT EYE BID 08/17/23 08/17/23 History Eye Drop] HYDROcodone/APAP 5-325MG [Hendrum 1 tab PO Q6HR PRN 08/17/23 08/17/23 History 5-325] Ipratropium-Albuterol Nebulize 3 ml INHALATION RT-QID 08/17/23 08/17/23 History [Duoneb 0.5 mg-3 mg/3 ml Soln] Latanoprost [Latanoprost 0.005%] 1 drop BOTH EYES HS 08/17/23 08/17/23 History Losartan Potassium 100 mg PO DAILY 08/17/23 08/17/23 History Naproxen Sodium [Aleve] 220 mg PO BID PRN 08/17/23 08/17/23 History Sennosides-Docusate Sodium 2 tab PO HS PRN 08/17/23 08/17/23 History [Senokot-S] Allergies Allergy/AdvReac Type Severity Reaction Status Date / Time No Known Allergies Allergy Verified 07/24/23 06:22 Physical Exam Vitals: Vital Signs Temp Pulse Resp BP Pulse Ox 08/18/23 00:00 60 16 134/71 97 08/17/23 20:00 72 16 138/86 98 08/17/23 18:18 97.9 F 57 L 19 150/73 98 08/17/23 17:45 97.8 F 56 L 19 155/64 97 08/17/23 14:51 98 F 52 L 20 133/65 97 Intake and Output 08/17/23 08/17/23 08/18/23 14:59 22:59 06:59 Other: Weight 72.121 kg GENERAL EXAM: Alert, 87-year-old white male , comfortable in no apparent distress. HEAD: Normocephalic and atraumatic EYES: Normal reaction of pupils, equal size. NOSE: Clear with pink turbinates. THROAT: No erythema or exudates. NECK: No masses, no JVD. CHEST: No chest wall deformity. Thoracotomy site well approximated and clean LUNGS: Equal air entry with diminished right lower lobe lung sounds. No wheezes, rhonchi, crackles. On room air. No conversational dyspnea or accessory muscle use.. CVS: S1 and S2 normal with no audible murmur, regular rhythm. No extra heart sounds ABDOMEN: No hepatosplenomegaly, active bowel sounds, no guarding or rigidity. SPINE: No scoliosis or deformity SKIN: No rashes CENTRAL NERVOUS SYSTEM: No focal deficits, tone is normal in all 4 extremities. EXTREMITIES: There is no peripheral edema, clubbing, or cyanosis. Peripheral pulses are intact. Results - Laboratory Findings CBC and BMP: 08/18/23 07:23 08/18/23 07:23 PT/INR, D-dimer PT 10.4 sec (10.0-12.5) 08/17/23 14:57 INR 0.9 (<1.2) 08/17/23 14:57 D-Dimer 5.42 mg/L FEU (<0.60) H 08/17/23 14:57 Abnormal lab findings: Abnormal Labs 08/17/23 08/17/23 08/17/23 14:57 14:57 14:57 RBC 4.11 L Hgb 11.9 L Hct 35.4 L D-Dimer 5.42 H Sodium 128 L Potassium 5.6 H Chloride 94 L Glucose 132 H Total Protein 6.0 L Albumin 3.2 L - Diagnostic Findings Chest x-ray: image reviewed CT scan - chest: image reviewed Assessment and Plan Assessment: Pulmonary adenocarcinoma, status/post robotic-assisted thorascopic surgery with right upper lobectomy. Chest CTA redemonstrated a persistent small right upper lobe pneumothorax. 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 There is a persistent right fluid collection with foci of gas, suspicious for possible postsurgical empyema. Not reporting any infectious symptoms. Procalcitonin pending. I will talk to Dr. Reyes about possible thoracentesis. Not on any anticoagulants Patient was given doses of kayexalate, and repeat electrolytes are ordered for morning Normal saline infusing at 75 ml/hr. Home medications have been restarted. We will continue to follow, and further recommendations are forthcoming I have personally seen and examined the patient, performed the documentation and the assessment and plan as written. Number of minutes spent on the visit:20 Residual evaluation that was done along with the nurse practitioner. The patient is known to me. This evaluation was done in more than 30 minutes. The patient was seen in the emergency department. The patient is known to have pulmonary adenocarcinoma and the patient underwent a right upper lobe lobectomy. The patient subsequently developed a pneumothorax and the patient had a stable pneumothorax, right-sided chest tube was within the patient was discharged home. The patient was readmitted for some weakness and the patient was found to have a component of hyponatremia. Sodium level was 127. Noted during his hospital stay and postop, the patient also developed a hyponatremia that was treated. I reviewed the follow-up CAT scan of the chest. There is a little bit of the right-sided pleural effusion. There is also a right apical pneumothorax. There is no evidence of any pulmonary embolism. The right-sided pneumothorax is small. There was background emphysema. There is also a right-sided pleural fluid collection with multiple foci of gas. I think this is postsurgical in nature. There is the possibility of pleural space infection/empyema. Nevertheless, clinically the patient has no chest pain. No shortness of breath. No fever. No pleurisy. No leukocytosis. Does not look toxic at all. This could be potentially postsurgical changes in the right lung. Monitor fever pattern. Monitor white cell count. Hold off antibiotics for now. No need for thoracentesis. Check pro calcitonin level. We'll continue to follow. Patient will be restricted of fluids. Will monitor sodium level. Serum cortisol at 19. Time with Patient: Greater than 30
[2023-08-18 08:01] LABS: Basophils % (A) 0 %; Eosinophils # (A) 0.3 k/uL (0-0.7); Eosinophils % (A) 4 %; HCT 33.8 % (39.0-53.0); HGB 10.9 gm/dL (13.0-17.5); Lymphocytes # (A) 1.4 k/uL (1.0-4.8); Lymphocytes % (A) 18 %; MCH 27.7 pg (25.0-35.0); MCHC 32.1 g/dL (31.0-37.0); MCV 86.2 fL (80.0-100.0); Mean Platelet Volume 7.1; Monocytes # (A) 0.7 k/uL (0-1.0); Monocytes % (A) 9 %; Neutrophils # (A) 4.9 k/uL (1.3-7.7); Neutrophils % (A) 66 %; Platelet Count 389 k/uL (150-450); RBC 3.92 m/uL (4.30-5.90); RDW 13.1 % (11.5-15.5); WBC 7.5 k/uL (3.8-10.6)
[2023-08-18] MEDS: SYMBICORT 160-4.5 MCG INHALER INHALATION SCH ×2 (08:30→21:22)
[2023-08-18] MEDS: IPRATROPIUM-ALBUTEROL 3 ML NEB INHALATION PRN ×3 (08:30→21:22)
[2023-08-18] MEDS: SODIUM CHLORIDE 0.9% 1,000 ML IV SCH (09:07)
[2023-08-18] MEDS: ASPIRIN 81 MG PO SCH ×2 (09:08→20:25)
[2023-08-18] MEDS: hydrALAZINE HCL 50 MG TAB PO SCH ×2 (09:08→20:25)
[2023-08-18] MEDS: LOSARTAN 50 MG TAB PO SCH (09:08)
[2023-08-18] MEDS: ENOXAPARIN 40 MG/0.4 ML SYRINGE SQ SCH (09:09)
[2023-08-18 09:12] LABS: ALT 23 U/L (4-49); AST 20 U/L (17-59); African American GFR (CKD) >90 (>60 ml/min/1.73 sqM); Albumin 2.9 g/dL (3.5-5.0); Alkaline Phosphatase 105 U/L (38-126); Anion Gap 7 mmol/L; Blood Urea Nitrogen 16 mg/dL (9-20); Calcium 8.6 mg/dL (8.4-10.2); Carbon Dioxide 23 mmol/L (22-30); Chloride 97 mmol/L (98-107); Glucose 105 mg/dL (74-99); Magnesium 2.1 mg/dL (1.6-2.3); Non-African American GFR(CKD) 86 (>60 ml/min/1.73 sqM); Phosphorus 3.6 mg/dL (2.5-4.5); Potassium 4.6 mmol/L (3.5-5.1); Sodium 127 mmol/L (137-145); Total Bilirubin 0.6 mg/dL (0.2-1.3); Total Protein 5.5 g/dL (6.3-8.2)
[2023-08-18] MEDS: DORZOLAMIDE HCL 2% DROPS 10 ML BTL LEFT EYE SCH ×2 (10:31→20:25)
--- NOTE | 2023-08-18 14:00 | P.PN ---
Subjective Progress Note Date: 08/18/23 Patient is a 87-year-old male with a PMH of invasive pulmonary adenocarcinoma status post right upper lobe resection on 07/24/23, CAD status post multiple stents, hypertension, hyperlipidemia, COPD, PVD, BPH, rheumatoid arthritis, who presents to the emergency room for generalized weakness and hypotension. Patient reports that over the past 2 days he's been feeling significantly more weak than usual throughout. A visiting nurse came to see him as scheduled and noticed that his blood pressure although slightly elevated at 160 was subsequently low at 90s systolic at multiple readings. The patient also reported feeling somewhat lightheaded at the time. At the time of interview he reports feeling somewhat better. Denied experiencing chest discomfort, shortness of breath, nausea, vomiting, abdominal pain, diaphoresis. Also denied fever, chills, cough, diarrhea. In the emergency room with chest CTA revealed a small right upper lung pneumothorax with possible empyema. Vital signs in the emergency room upon arrival were BP 133/65, pulse 52, temp 98F, and SpO2 97% on room air. Laboratory evaluation was remarkable for hemoglobin 11.9, sodium 128, potassium 5.6, troponin less than 0.012, and d-dimer 5.42. Patient was given Kayexalate/Ca gluconate, started on NS at 75 cc/hr and admitted for further management. 08/18 Patient seen and examined. He reports feeling well. No dizziness. No SOB. No chest pain. SBP 133-177 during his hospitalization so far. CBC shows Hg 10.9. CMP Na 127, Cl 97, glucose 105, albumin 2.9. Procal 0.08. Cortisol 19. Vital signs reviewed General: non toxic, no distress, appears at stated age, normal weight Derm: no unusual rashes/lesions, warm Head: atraumatic, normocephalic, symmetric Eyes: EOMI, no lid lag, anicteric sclera ENT: Nose and ears atraumatic Neck: No cervical lymphadenopathy, trachea midline, supple Cardiovascular: S1S2 reg, no murmur, no edema Lungs: CTA bilateral, no rhonchi, no rales, no accessory muscle use, right lateral chest wall incisions healing well Ext: muscle strength 4 out of 5 in all 4 extremities grossly, no gross muscle atrophy, no contractures, Neuro: no gross focal neuro deficits Psych: Alert, oriented, appropriate affect Right upper lobe small pneumothorax with possible abscess/empyema Generalized weakness Hypochloremic hyponatremia (patient experienced hyponatremia during recent hospitalization, at baseline) Hyperkalemia Based on my assessment of this patient, this patient meets a moderate complexity level of care. Patient has a new diagnosis of generalized weakness and lightheadedness in the setting of hypotension with uncertain prognosis. BP has been normal-high during this hospitalization. Right upper lobe small pneumothorax with possible abscess/empyema: Procal negative. Doubt infection. Pulmonology on board. 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 DC IVF. Fluid restrict. Chronic. Resolved: Hyperkalemia I have reviewed the following [employer] consultant notes: Pulmonology note. I have reviewed the results of the following tests: As above. I have ordered the following tests: I have discussed the care of this patient with the following independent historian: I have independently interpreted the following test below: I have discussed the management of this patient with the following physician: Objective - Vital Signs Vital signs: Vital Signs Temp 97.9 F 08/17/23 18:18 Pulse 74 08/18/23 09:06 Resp 18 08/18/23 09:06 BP 146/75 08/18/23 09:06 Pulse Ox 96 08/18/23 09:06 FiO2 Intake & Output 08/17/23 08/18/23 08/18/23 18:59 06:59 18:59 Output Total 500 Balance -500 Weight 72.121 kg Output: Urine 500 Other: # Voids 3 - Labs CBC & Chem 7: 08/18/23 07:23 08/18/23 07:23 Labs: Abnormal Lab Results - Last 24 Hours (Table) 08/17/23 08/17/23 08/17/23 Range/Units 14:57 14:57 14:57 RBC 4.11 L (4.30-5.90) m/uL Hgb 11.9 L (13.0-17.5) gm/dL Hct 35.4 L (39.0-53.0) % D-Dimer 5.42 H (<0.60) mg/L FEU Sodium 128 L (137-145) mmol/L Potassium 5.6 H (3.5-5.1) mmol/L Chloride 94 L (98-107) mmol/L Glucose 132 H (74-99) mg/dL Total Protein 6.0 L (6.3-8.2) g/dL Albumin 3.2 L (3.5-5.0) g/dL 08/18/23 08/18/23 Range/Units 07:23 07:23 RBC 3.92 L (4.30-5.90) m/uL Hgb 10.9 L (13.0-17.5) gm/dL Hct 33.8 L (39.0-53.0) % D-Dimer (<0.60) mg/L FEU Sodium 127 L (137-145) mmol/L Potassium (3.5-5.1) mmol/L Chloride 97 L (98-107) mmol/L Glucose 105 H (74-99) mg/dL Total Protein 5.5 L (6.3-8.2) g/dL Albumin 2.9 L (3.5-5.0) g/dL
[2023-08-18] MEDS ORDERED: LATANOPROST 0.005% OPHTH DROPS 2.5 ML BTL BOTH EYES SCH (21:00)
[2023-08-18] MEDS ORDERED: ATORVASTATIN 10 MG TAB PO SCH (21:00)
[2023-08-18] MEDS ORDERED: amLODIPine 5 MG TAB PO SCH (21:00)
[2023-08-18] MEDS ORDERED: diphenhydrAMINE 25 MG CAP PO STA (22:39)
[2023-08-19 04:32] VITALS: RESP 18
[2023-08-19] MEDS: IPRATROPIUM-ALBUTEROL 3 ML NEB INHALATION PRN (08:15)
[2023-08-19] MEDS: SYMBICORT 160-4.5 MCG INHALER INHALATION SCH (08:15)
[2023-08-19] MEDS: hydrALAZINE HCL 50 MG TAB PO SCH (08:53)
[2023-08-19] MEDS: ASPIRIN 81 MG PO SCH (08:53)
[2023-08-19] MEDS: LOSARTAN 50 MG TAB PO SCH (08:53)
[2023-08-19] MEDS: ENOXAPARIN 40 MG/0.4 ML SYRINGE SQ SCH (08:55)
[2023-08-19 09:03] VITALS: BP 137/65; PULSE 70; TEMP 98.1
[2023-08-19 09:53] LABS: African American GFR (CKD) >90 (>60 ml/min/1.73 sqM); Anion Gap 12 mmol/L; Blood Urea Nitrogen 11 mg/dL (9-20); Calcium 8.7 mg/dL (8.4-10.2); Carbon Dioxide 21 mmol/L (22-30); Chloride 95 mmol/L (98-107); Glucose 111 mg/dL (74-99); Non-African American GFR(CKD) 89 (>60 ml/min/1.73 sqM); Potassium 4.1 mmol/L (3.5-5.1); Sodium 128 mmol/L (137-145)
[2023-08-19] MEDS: DORZOLAMIDE HCL 2% DROPS 10 ML BTL LEFT EYE SCH (10:35)
--- NOTE | 2023-08-19 11:35 | P.PN ---
Subjective Progress Note Date: 08/19/23 I am seeing this patient in consultation today 08/18/2023 in the emergency room department after his home health nurse told him to come to the ER for blood pressure fluctuations and bradycardia. Patient is an 87-year-old white male with past medical history significant for recent right video-assisted th orascopic surgery with right upper lobectomy 07/24/2023 due to a right upper lobe mass. 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 Patient also has history of coronary artery disease with previous stent, hyperlipidemia, hypertension, peripheral arterial disease, BPH, among other things. Patient has been experiencing generalized weakness over the last couple days. Yesterday, a visiting nurse came to see him and found him to be borderline hypotensive with a low heart rate. He reported some lightheadedness. Patient was directed to the emergency room. Patient is currently sitting up in bed, on room air, in no acute distress. He denies any heart palpitations or syncopal events. He does admit some shortness of breath, especially on exertion. He has some right-sided chest pain that wraps around to the back. Denies fever, chills, cough. His thoracotomy site is clean and approximated. No drainage reported. Chest CTA redemonstrated a persistent small right upper lobe pneumothorax. There is a right pleural fluid collection with multiple foci of gas felt to be outside lung parenchyma suspicious for postsurgical empyema. Fullness of the right pulmonary hilar mass and unchanged from prior PET/CT scan. No pulmonary embolism identified. CBC shows no leukocytosis with a WBC count of 9, hemoglobin 11.9, hematocrit 35.4, platelets 423. BMP on arrival sodium 128, potassium 5.6, chloride 94, serum bicarb 24, BUN 20, creatinine 0.8, glucose 132. Troponin less than 0.012. EKG on arrival showed a junctional rhythm with premature beats and a rate of 58 bpm. No obvious acute ischemic changes. Currently, patient appears to be in normal sinus rhythm on bedside monitor and blood pressure is now slightly hypertensive. Home antihypertensive medications have been restarted. Patient is being admitted to the observation unit. On today's evaluation of 08/19/2023, the patient is sitting up on a chair in the room air oxygen. No respiratory difficulties. He is receiving fluid restriction regarding the possibility of an SIADH. Sodium level is at 128. No respiratory difficulties. No cough or sputum production. No fever or chills. No leukocytosis. Pro-calcitonin level was only at 0.08. CAT scan findings are likely post surgical. Possibility of a pleural space infection is considered to be less likely. We'll continue to monitor. Objective - Vital Signs Vital signs: Vital Signs Temp 98.1 F 08/19/23 08:52 Pulse 70 08/19/23 08:52 Resp 18 08/19/23 08:52 BP 137/65 08/19/23 08:52 Pulse Ox 94 L 08/19/23 08:52 FiO2 Intake & Output 08/18/23 08/19/23 08/19/23 18:59 06:59 18:59 Intake Total 840 658 Balance 840 658 Intake: Oral 840 658 Other: Voiding Method Toilet # Voids 1 - Exam GENERAL EXAM: Alert, 87-year-old white male , comfortable in no apparent distress. HEAD: Normocephalic and atraumatic EYES: Normal reaction of pupils, equal size. NOSE: Clear with pink turbinates. THROAT: No erythema or exudates. NECK: No masses, no JVD. CHEST: No chest wall deformity. Thoracotomy site well approximated and clean LUNGS: Equal air entry with diminished right lower lobe lung sounds. No wheezes, rhonchi, crackles. On room air. No conversational dyspnea or accessory muscle use.. CVS: S1 and S2 normal with no audible murmur, regular rhythm. No extra heart sounds ABDOMEN: No hepatosplenomegaly, active bowel sounds, no guarding or rigidity. SPINE: No scoliosis or deformity SKIN: No rashes CENTRAL NERVOUS SYSTEM: No focal deficits, tone is normal in all 4 extremities. EXTREMITIES: There is no peripheral edema, clubbing, or cyanosis. Peripheral pulses are intact. - Labs CBC & Chem 7: 08/18/23 07:23 08/19/23 08:44 Labs: Abnormal Lab Results - Last 24 Hours (Table) 08/19/23 Range/Units 08:44 Sodium 128 L (137-145) mmol/L Chloride 95 L (98-107) mmol/L Carbon Dioxide 21 L (22-30) mmol/L Creatinine 0.64 L (0.66-1.25) mg/dL Glucose 111 H (74-99) mg/dL Assessment and Plan Assessment: Pulmonary adenocarcinoma, status/post robotic-assisted thorascopic surgery with right upper lobectomy. Chest CTA redemonstrated a persistent small right upper lobe pneumothorax. There is a right pleural fluid collection with multiple foci of gas felt to be outside lung parenchyma suspicious for postsurgical empyema. Clinically, the patient continues to do well. He remains on room air oxygen. 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 No leukocytosis Pro calcitonin level is low No shortness of breath Stable right apical pneumothorax Monitor sodium level Increase mobility Does not look toxic at all. The CAT scan findings could be potentially postsurgical changes in the right lung. Monitor fever pattern. Monitor white cell count. Hold off antibiotics for now. No need for thoracentesis. We'll continue to follow
--- NOTE | 2023-08-19 11:57 | P.DS ---
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 Patient reports that over the past 2 days he's been feeling significantly more weak than usual throughout. A visiting nurse came to see him as scheduled and noticed that his blood pressure although slightly elevated at 160 was subsequently low at 90s systolic at multiple readings. The patient also reported feeling somewhat lightheaded at the time. At the time of interview he reports feeling somewhat better. Denied experiencing chest discomfort, shortness of breath, nausea, vomiting, abdominal pain, diaphoresis. Also denied fever, chills, cough, diarrhea. In the emergency room with chest CTA revealed a small right upper lung pneumothorax with possible empyema. Vital signs in the emergency room upon arrival were BP 133/65, pulse 52, temp 98F, and SpO2 97% on room air. Laboratory evaluation was remarkable for hemoglobin 11.9, sodium 128, potassium 5.6, troponin less than 0.012, and d-dimer 5.42. Patient was given Kayexalate/Ca gluconate, started on NS at 75 cc/hr and admitted for further management. 08/18 Patient seen and examined. He reports feeling well. No dizziness. No SOB. No chest pain. SBP 133-177 during his hospitalization so far. CBC shows Hg 10.9. CMP Na 127, Cl 97, glucose 105, albumin 2.9. Procal 0.08. Cortisol 19. 08/19 Patient was seen and examined. He reports no complaints. No fever. No leukocytosis. Procalcitonin negative. Non toxic. No signs of infection. No hypotension. Discussed with Dr. Reyes, no need for antibiotics or thoracentesis, OK for discharge. He is advised to follow up with his PCP within 1-2 days. Continue home medications. Pertinent studies include CXR, CTA chest. Vital signs reviewed General: non toxic, no distress, appears at stated age, normal weight Derm: no unusual rashes/lesions, warm Head: atraumatic, normocephalic, symmetric Eyes: EOMI, no lid lag, anicteric sclera ENT: Nose and ears atraumatic Neck: No cervical lymphadenopathy, trachea midline, supple Cardiovascular: S1S2 reg, no murmur, no edema Lungs: CTA bilateral, no rhonchi, no rales, no accessory muscle use, right lateral chest wall incisions healing well Ext: muscle strength 4 out of 5 in all 4 extremities grossly, no gross muscle atrophy, no contractures Neuro: no gross focal neuro deficits Psych: Alert, oriented, appropriate affect Discharge Diangosis: Right upper lobe small pneumothorax with possible abscess/empyema likely post surgical changes Generalized weakness Hypochloremic hyponatremia (patient experienced hyponatremia during recent hospitalization, at baseline) Hyperkalemia This complex discharge took 35 minutes to complete. Patient Condition at Discharge: Stable Plan - Discharge Summary New Discharge Prescriptions: Continue Aspirin 81 mg PO BID Cyanocobalamin [Vitamin B-12] 500 mcg PO DAILY amLODIPine [Norvasc] 5 mg PO HS Force Factor Prostate Suppl 1 dose PO DAILY Acetaminophen Tab [Tylenol] 650 mg PO Q4HR PRN tab PRN Reason: Mild To Moderate Pain (1 - 6) HYDROcodone/APAP 5-325MG [Marsing 5-325] 1 tab PO Q6HR PRN PRN Reason: Pain Dorzolamide HCl/Pf [Dorzolamide 2% Eye Drop] 1 drop LEFT EYE BID Sennosides-Docusate Sodium [Senokot-S] 2 tab PO HS PRN PRN Reason: Constipation Naproxen Sodium [Aleve] 220 mg PO BID PRN PRN Reason: Pain Losartan Potassium 100 mg PO DAILY Cholecalciferol [Vitamin D3 (25 Mcg = 1000 Iu)] 50 mcg PO DAILY [place]-3/Dha/Epa/Fish Oil [Fish Oil 1,000 mg Softgel] 1 cap PO DAILY Multivit-Min/Folic/Vit K/Lycop [Men's Multivitamin Tablet] 1 tab PO DAILY Atorvastatin [Lipitor] 10 mg PO HS diphenhydrAMINE [Benadryl] 25 mg PO HS PRN PRN Reason: sinuses hydrALAZINE HCL [Apresoline] 50 mg PO BID #60 tab guaiFENesin [Mucinex] 1,200 mg PO Q12HR PRN tab PRN Reason: Cough Latanoprost [Latanoprost 0.005%] 1 drop BOTH EYES HS Ipratropium-Albuterol Nebulize [Duoneb 0.5 mg-3 mg/3 ml Soln] 3 ml INHALATION RT-QID Budesonide-Formot 160-4.5 Mcg [Symbicort 160-4.5 Mcg Inhaler] 2 puff INHALATION RT-BID Discharge Medication List Aspirin 81 mg PO BID 02/26/14 [History] Cholecalciferol [Vitamin D3 (25 Mcg = 1000 Iu)] 50 mcg PO DAILY 08/19/22 [History] Cyanocobalamin [Vitamin B-12] 500 mcg PO DAILY 08/19/22 [History] Force Factor Prostate Suppl 1 dose PO DAILY 08/19/22 [History] Multivit-Min/Folic/Vit K/Lycop [Men's Multivitamin Tablet] 1 tab PO DAILY 08/19/22 [History] [place]-3/Dha/Epa/Fish Oil [Fish Oil 1,000 mg Softgel] 1 cap PO DAILY 08/19/22 [History] amLODIPine [Norvasc] 5 mg PO HS 08/19/22 [History] Atorvastatin [Lipitor] 10 mg PO HS 06/05/23 [History] diphenhydrAMINE [Benadryl] 25 mg PO HS PRN 07/24/23 [History] Acetaminophen Tab [Tylenol] 650 mg PO Q4HR PRN tab 08/01/23 [Rx] guaiFENesin [Mucinex] 1,200 mg PO Q12HR PRN tab 08/01/23 [Rx] hydrALAZINE HCL [Apresoline] 50 mg PO BID #60 tab 08/01/23 [Rx] Budesonide-Formot 160-4.5 Mcg [Symbicort 160-4.5 Mcg Inhaler] 2 puff INHALATION RT-BID 08/17/23 [History] Dorzolamide HCl/Pf [Dorzolamide 2% Eye Drop] 1 drop LEFT EYE BID 08/17/23 [History] HYDROcodone/APAP 5-325MG [Marsing 5-325] 1 tab PO Q6HR PRN 08/17/23 [History] Ipratropium-Albuterol Nebulize [Duoneb 0.5 mg-3 mg/3 ml Soln] 3 ml INHALATION RT-QID 08/17/23 [History] Latanoprost [Latanoprost 0.005%] 1 drop BOTH EYES HS 08/17/23 [History] Losartan Potassium 100 mg PO DAILY 08/17/23 [History] Naproxen Sodium [Aleve] 220 mg PO BID PRN 08/17/23 [History] Sennosides-Docusate Sodium [Senokot-S] 2 tab PO HS PRN 08/17/23 [History] Follow up Appointment(s)/Referral(s): Kareem Mae DO [Primary Care Provider] - 1-2 days Discharge Disposition: HOME SELF-CARE
== END 2023-08-19 13:23 | disposition home or self-care (01) ==
LOC: EC 14:32 → 3SCARD 19:09
PROVIDERS: ADMIT Internal Medicine; ATTEND Internal Medicine
DX: C34.90 Malignant neoplasm of unspecified part of unspecified bronchus or lung (principal); J93.9 Pneumothorax, unspecified; E87.1 Hypo-osmolality and hyponatremia; E87.5 Hyperkalemia; J44.9 Chronic obstructive pulmonary disease, unspecified; R53.1 Weakness; I25.10 Atherosclerotic heart disease of native coronary artery without angina pectoris; E78.5 Hyperlipidemia, unspecified; I10 Essential (primary) hypertension; I73.9 Peripheral vascular disease, unspecified; N40.0 Benign prostatic hyperplasia without lower urinary tract symptoms; E86.0 Dehydration; R00.1 Bradycardia, unspecified; I95.9 Hypotension, unspecified; G89.18 Other acute postprocedural pain; R00.0 Tachycardia, unspecified; I25.2 Old myocardial infarction; Z85.118 Personal history of other malignant neoplasm of bronchus and lung; Z85.828 Personal history of other malignant neoplasm of skin; Z90.2 Acquired absence of lung [part of]; Z95.5 Presence of coronary angioplasty implant and graft; Z87.891 Personal history of nicotine dependence; Z79.82 Long term (current) use of aspirin; Z79.899 Other long term (current) drug therapy; Z79.51 Long term (current) use of inhaled steroids
CPT/HCPCS: 96361 ×2; 96372 ×2; 96374; 99285; 36415; 94640 ×4; 94760; 93005; 85379; 80053 ×2; 80048; 82533; 83735 ×2; 84100 ×2; 84484; 85025 ×2; 85610; 85730; 84145; 71046; 71275; G0378 ×3; J2405; J1650 ×2; Q9967; J0613

== ENCOUNTER → 2023-10-06 | Outpatient (CLI) | payer MEDICARE ==
--- NOTE | 2023-10-06 10:15 | US ---
EXAMINATION TYPE: US abdomen complete DATE OF EXAM: 10/06/2023 COMPARISON: CT Chest CLINICAL INDICATION: Male, 88 years old with history of R11.0 NAUSEA; Nausea TECHNIQUE: Multiple sonographic images of the abdomen are obtained. FINDINGS: EXAM MEASUREMENTS: Liver Length: 13.3 cm Gallbladder Wall: 0.3 cm CBD: 0.3 cm Spleen: 11.5 cm Right Kidney: 9.4 x 4.9 x 4.8 cm Left Kidney: 10.0 x 4.3 x 3.8 cm Pancreas: wnl Liver: wnl Gallbladder: wnl Evidence for sonographic Ashley's sign: No CBD: wnl Spleen: wnl Right Kidney: wnl Left Kidney: Cyst upper pole= 1.8 cm Upper IVC: wnl Abd Aorta: Atherosclerotic jenkins The liver is homogenous. The intrahepatic portion of the IVC and proximal abdominal aorta are within normal limits. There is no evidence of cholelithiasis. Common bile duct is unremarkable. The visu alized portions of the pancreas are homogenous. The spleen is unremarkable. Kidneys are symmetric a nd free of hydronephrosis. No renal lesions are seen. IMPRESSION: No evidence for acute process.
== END | disposition home or self-care (01) ==
LOC: RADUSWWP 08:56
PROVIDERS: ATTEND Internal Medicine Critical Care Medicine
DX: R11.0 Nausea (principal)
CPT/HCPCS: 76700

== ENCOUNTER → 2024-02-27 | Outpatient (CLI) | payer MEDICARE ==
[2024-02-27 12:00] LABS: African American GFR (CKD) >90 (>60 ml/min/1.73 sqM); Blood Urea Nitrogen 21 mg/dL (9-20); Non-African American GFR(CKD) 80 (>60 ml/min/1.73 sqM)
--- NOTE | 2024-02-28 13:14 | CT ---
EXAMINATION TYPE: CT chest w con CT DLP: 391.8 mGycm, Automated exposure control for dose reduction was used. DATE OF EXAM: 02/27/2024 12:35 PM COMPARISON: CT chest 06/08/2023. CLINICAL INDICATION:Male, 88 years old with history of C34.90 lung ca; PHH, lung ca TECHNIQUE: Multiple axial images were obtained through the chest. Sagittal and coronal reformats were created for review. Contrast used:100 ml mL of Isovue 300 with IV Contrast (None if empty) Oral contrast used: (None if empty) FINDINGS: Stable 7 mm lingular nodule. Possible stable 1.2 cm lingular nodule (series 3, image 213 on prior ex am). Is reidentified on series 4, image 50. AIRWAY: Patent and unremarkable. LUNGS/ PLEURA: Masslike lesion in the lateral right lung measuring up to 5.6 cm on the previous scan is no longer identified. Changes in the right hemithorax just resection of the lesion. The right hem idiaphragm is elevated and the mediastinum shifted toward the left AIRWAY: Patent and unremarkable. HEART: Size within normal limits. MEDIASTINUM: Conglomerate adenopathy versus scarring is seen in the right. Otherwise could be adenopa thy, it could be related to surgical treatment. The right hemidiaphragm is elevated. Colon is placed between the liver and the diaphragm. VASCULATURE: No aortic aneurysm. MUSCULOSKELETAL: No acute osseous abnormalities SOFT TISSUES/LYMPH NODES: Unremarkable. LOWER NECK: No significant findings. UPPER ABDOMEN: No significant findings. IMPRESSION: Suspect surgical resection and postsurgical changes involving the right lung. Correlate with surgical history. Stable or slightly improved 7 mm lingular nodule
== END | disposition home or self-care (01) ==
LOC: RADCTMAIN 11:06
PROVIDERS: ATTEND Internal Medicine Critical Care Medicine
DX: C34.90 Malignant neoplasm of unspecified part of unspecified bronchus or lung (principal)
CPT/HCPCS: 82565; 84520; 71260; 36415; Q9967

== ENCOUNTER → 2024-09-10 | Outpatient (CLI) | payer MEDICARE ==
--- NOTE | 2024-09-11 08:06 | XR ---
EXAMINATION TYPE: XR chest 2V DATE OF EXAM: 09/10/2024 CLINICAL HISTORY: R0602 SOB TECHNIQUE: Frontal and lateral views of the chest are obtained. COMPARISON: 08/17/2023 FINDINGS: There is no focal air space opacity, pleural effusion, or pneumothorax seen. The cardiac silhouette size is within normal limits. The osseous structures are intact. Persistent lucency unde rneath the right hemidiaphragm reflects colonic interposition. Chronic elevation right hemidiaphragm. IMPRESSION: No acute cardiopulmonary process. [facility], , 09/11/2024 8:04 AM
== END | disposition home or self-care (01) ==
LOC: RADXRYALE 14:57
PROVIDERS: ATTEND Physician Assistant Medical
DX: R06.02 Shortness of breath (principal)
CPT/HCPCS: 71046

== ENCOUNTER → 2024-09-25 | Outpatient (CLI) | payer MEDICARE ==
[2024-09-25 12:38] LABS: African American GFR (CKD) 87 (>60 ml/min/1.73 sqM); Blood Urea Nitrogen 20 mg/dL (9-20); Non-African American GFR(CKD) 75 (>60 ml/min/1.73 sqM)
--- NOTE | 2024-09-26 20:15 | CT ---
EXAMINATION TYPE: CT chest w con DATE OF EXAM: 09/25/2024 1:02 PM COMPARISON: 02/27/2024 CLINICAL INDICATION: Male, 89 years old with history of C34.90 MALIGNANT NEOPLASM OF UNSP PART OF UNS P BRO, Lung ca TECHNIQUE: Axial images were obtained at 5 mm thick sections. Reconstructed images are reviewed on [employer] computer in the coronal plane. Contrast used:100 mL of Isovue 300 with IV Contrast, (none if empty) Oral contrast used: (none if empty) CT DLP: 285.8 mGycm, Automated exposure control for dose reduction was used. FINDINGS: Portion of the thyroid visualized is normal. There is interval development of a suspicious ill-defined groundglass opacity from the right upper th e right lateral lung field. No enlarged mediastinal or hilar adenopathy is evident. The ascending aorta diameter at the level o f the main pulmonary artery is 4.0 cm. This appears stable from comparison. The main pulmonary arter y diameter at the bifurcation is 2.[address] sections are obtained through the upper abdomen. Abdomen is essentially unremarkable. IMPRESSION: 1. Interval development of groundglass opacity through the right lung field. Consider additional work up with bronchoscopy. [facility], Workstation: [facility], 09/26/2024 8:12 PM
== END | disposition home or self-care (01) ==
LOC: RADCTMAIN 11:54
PROVIDERS: ATTEND Internal Medicine Critical Care Medicine
DX: C34.90 Malignant neoplasm of unspecified part of unspecified bronchus or lung (principal)
CPT/HCPCS: 82565; 84520; 71260; 36415; Q9967

== ENCOUNTER 2025-01-10 08:28 | Day surgery (SDC) | payer MEDICARE ==
--- NOTE | 2025-01-09 17:22 | HP ---
HISTORY AND PHYSICAL CHIEF COMPLAINT: Fluid in the left ear. HISTORY OF PRESENT ILLNESS: This patient is a pleasant 89-year-old male, who was recently seen in my office complaining of having a blocked sensation in his left ear. The patient states that the symptoms had been there for 2 or 3 months. 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 The patient was placed on two courses of Decadron Dose Pack and was re-evaluated in the office. At the time of his re-evaluation after completing both courses of the medication, it was noted that there was still fluid in the left middle ear space. It was, therefore, recommended that he undergo a left myringotomy with insertion of ventilation tube on IV sedation. PAST MEDICAL HISTORY: Reveals that the patient has no known allergies to medications. 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 MEDICATIONS: Current medications include: 1. Losartan. 2. Amlodipine. 3. Prilosec. 4. Atorvastatin. 5. Albuterol. 6. Trelegy. 7. Metoprolol. 8. Lasix. 9. Hydralazine. REVIEW OF SYSTEMS: Reveals, CARDIOVASCULAR SYSTEM: Positive for hypertension, ASHD. RESPIRATORY: Positive for COPD and emphysema. GASTROINTESTINAL SYSTEM: Positive for GERD (gastroesophageal reflux disorder. METABOLIC/ENDOCRINE: Positive for hypercholesterolemia. Remainder of the review of systems is unremarkable. PHYSICAL EXAMINATION: GENERAL: This patient is an 89-year-old male, who is alert and cooperative. HEENT: The patient is normocephalic. Right tympanic membrane is unremarkable. Examination of the left ear reveals that the left tympanic membrane is dull with evidence of fluid in the left middle ear space. Pupils are equal, round, reactive to light and accommodation. Extraocular movements are within normal limits. Intranasal examination reveals moderate to severe septal deviation to the right with compensatory hypertrophy of the inferior turbinates bilaterally. Examination of oropharynx and the remainder of the head and neck exam all within normal limits. CHEST/CARDIOVASCULAR: Both lung ba are clear to percussion and auscultation. The patient is in regular sinus rhythm. Lung sounds are distant. The S1, S2 are present without evidence any murmurs, S3s, or S4s. Peripheral pulses are bilaterally symmetrical. ABDOMEN: There is no evidence of any masses, megaly, or tenderness. The abdomen is soft. SKIN: Unremarkable. MUSCULOSKELETAL AND NEUROLOGICAL: All within normal limits. RECTAL: This should be printed. The rectal exam is deferred at this time because the patient has this done on a regular basis at his family physician's office. The remainder of physical exam is unremarkable. IMPRESSION: Chronic left serous otitis media. PLAN: The patient is scheduled to undergo a left myringotomy with insertion of ventilation tubes under IV sedation with MAC in the a.m. Attention, RNs in the pre-surgical area, I have not ordered any pre-surgical prophylactic antibiotics for this patient. If the Pharmacy Department sends any pre- surgical prophylactic antibiotics to the pre-surgical area for this patient, that order should be cancelled, and the medication should be returned to the Pharmacy Department. Please make sure that the patient's account is credited appropriately. I have discussed the risks, benefits and alternative therapies for the above-mentioned procedure and for both sedation/analgesia as well as necessary blood product administration, if indicated, as they pertain to this patient. The patient has indicated his understanding and acceptance of the risks and procedures discussed. MMODL / IJN: [id number] /
[~2025-01-10 08:28] MED LIST changes: -DEXAMETHASONE SOD PHOSPHATE 4 MG/ML 1 ML VIAL IV ONE; +HYDROmorphone 0.5 MG/0.5 ML SYRINGE IVP PRN; -LACTATED RINGERS 1,000 ML IV SCH; +LIDOCAINE 1% (10MG/ML) FOR IV START INTRADERMA PRN; +MIDAZOLAM 2 MG/2 ML VIAL IV PRN; -ONDANSETRON 4 MG/2 ML VIAL IVP ONE; +Pre Op ABX Message 1 EACH MISC MISCELLANE ONE; +fentaNYL (PF) 50 MCG/ML 2 ML AMP IVP PRN
[2025-01-10] MEDS: DEXAMETHASONE SOD PHOSPHATE 4 MG/ML 1 ML VIAL IV ONE (09:15)
[2025-01-10] MEDS: IV FLUID CONTINUATION 1,000 ML IV ONE (09:15)
[2025-01-10] MEDS: ONDANSETRON 4 MG/2 ML VIAL IVP ONE (09:15)
[2025-01-10] MEDS: IPRATROPIUM-ALBUTEROL 3 ML NEB INHALATION STA (09:15)
[2025-01-10] MEDS: LACTATED RINGERS 1,000 ML IV SCH (09:18)
[2025-01-10] MEDS ORDERED: PROPOFOL 10 MG/ML 20 ML VIAL IV ONE (10:13)
[2025-01-10] MEDS ORDERED: LIDOCAINE 1% INJ 10MG/ML (20 ML MDV) ONE (10:13)
[2025-01-10 10:57] VITALS: RESP 16; TEMP 97.5
[2025-01-10 12:21] VITALS: BP 136/72; PULSE 65
--- NOTE | 2025-01-10 20:03 | OP ---
OPERATIVE REPORT DATE OF SERVICE : PREOPERATIVE DIAGNOSIS: Chronic left serous otitis media. POSTOPERATIVE DIAGNOSIS: Chronic left serous otitis media. ANESTHESIA: General. PROCEDURE PERFORMED: Left myringotomy with insertion of a plastic Maritza-Bobbin ventilation tube. COMPLICATIONS: None. DESCRIPTION OF PROCEDURE: The patient was placed on the operating table in supine position. After uneventful induction and LMA intubation, satisfactory general anesthesia was obtained. Next, the patient's left ear was draped in the usual and customary fashion. Using a #3 aural speculum and the [employer] operating microscope, the left external auditory canal was cleansed of all wax and debris. Following this, the myringotomy knife was used to make an incision in the anterior-inferior quadrant of the left tympanic membrane. The left middle ear space was suctioned free of all fluid and a blue plastic Maritza-Bobbin ventilation tube was inserted into the left myringotomy incision without difficulty. At this point, the procedure was terminated. There were no intraoperative complications. The patient tolerated the procedure well and was returned to recovery room in satisfactory condition. MMODL / IJN: [id number] /
== END 2025-01-10 12:09 | disposition home or self-care (01) ==
LOC: OR 08:28
PROVIDERS: ATTEND Otolaryngology
DX: H65.22 Chronic serous otitis media, left ear (principal); I25.2 Old myocardial infarction; I25.10 Atherosclerotic heart disease of native coronary artery without angina pectoris; I48.91 Unspecified atrial fibrillation; I73.9 Peripheral vascular disease, unspecified; I10 Essential (primary) hypertension; E78.5 Hyperlipidemia, unspecified; N40.0 Benign prostatic hyperplasia without lower urinary tract symptoms; M06.9 Rheumatoid arthritis, unspecified; Z87.891 Personal history of nicotine dependence; Z85.110 Personal history of malignant carcinoid tumor of bronchus and lung; Z79.02 Long term (current) use of antithrombotics/antiplatelets; Z79.51 Long term (current) use of inhaled steroids; Z79.899 Other long term (current) drug therapy
CPT/HCPCS: 69436; J1100; J2405; J2003; J2704

== ENCOUNTER → 2025-04-04 | Outpatient (CLI) | payer MEDICARE ==
[2025-04-04 10:51] LABS: African American GFR (CKD) 90 (>60 ml/min/1.73 sqM); Blood Urea Nitrogen 19 mg/dL (9-20); Non-African American GFR(CKD) 78 (>60 ml/min/1.73 sqM)
--- NOTE | 2025-04-04 12:06 | CT ---
EXAMINATION TYPE: CT chest w con DATE OF EXAM: 04/04/2025 11:29 AM COMPARISON: CT 09/25/2024 CLINICAL INDICATION: Male, 89 years old with history of C34.90 LUNG CANCER; PHH, Lung ca TECHNIQUE: Multiple axial images were obtained through the chest. Sagittal and coronal reformats were created for review. MIP was performed on a separate workstation. Contrast used:100 mL of Isovue 300 with IV Contrast (None if empty) Oral contrast used: (None if empty) CT DLP: 502 mGycm, Automated exposure control for dose reduction was used. FINDINGS: LUNGS/ PLEURA: Postsurgical changes in the right lung. * Resolution of Glass opacities throughout the right lung. * Stable scarring posterior right upper lobe series 3 image 10. * Left lower lobe lateral groundglass opacity near the diaphragm is unchanged measuring 17 mm series 3 image 50. * Left lower lobe more superior groundglass opacity measuring 8 mm series 3 image 34 is unchanged. Left intrafissural lymph node series 3 image 29A No focal consolidation, pneumothorax or pleural effusion. AIRWAY: Patent and unremarkable. HEART: Size within normal limits. Moderate coronary artery calcifications present. MEDIASTINUM: No gross evidence of adenopathy. VASCULATURE: No aortic aneurysm. MUSCULOSKELETAL: No acute osseous abnormalities SOFT TISSUES/LYMPH NODES: Unremarkable. LOWER NECK: No significant findings. UPPER ABDOMEN: No significant findings. IMPRESSION: 1. Resolution of prior ground glass opacities throughout the right lung. 2. No new or enlarging pulmonary nodules. Stable morphology to the lung parenchyma. Continued survei llance recommended. 3. No lymphadenopathy. [facility], , 04/04/2025 12:03 PM
== END | disposition home or self-care (01) ==
LOC: RADCTMAIN 09:21
PROVIDERS: ATTEND Internal Medicine Critical Care Medicine
DX: C34.90 Malignant neoplasm of unspecified part of unspecified bronchus or lung (principal)
CPT/HCPCS: 82565; 84520; 71260; 36415; Q9967